=== PATIENT | female | born 1950 | race Caucasian/White ===

== ENCOUNTER 2025-04-24 10:31 | Day surgery (SDC) | payer MEDICARE, OTHER, SELFPAY ==
--- NOTE | 2025-04-16 15:32 | PAT.ANESEVAL ---
Pre-Assessment Diagnosis/Proposed Procedure Planned Operative Procedure(s): UPPER EYELID BLEPHAROPLASTY Anesthesia History Anesthesia History - correctional substance abuse counselor: Anesthesia History - correctional substance abuse counselor Hx Hospitalization No 04/15/25 14:06 Any Problems With Anesthesia No 04/15/25 14:06 Cholinesterase deficiency No 04/15/25 14:06 You/Your Family Experience No 04/15/25 14:06 fever (hyperthermia) with Relationship Recent Exposure to Contagious Disease Does patient have nerve No 04/15/25 14:06 stimulator Patient instructed to have device shut off --Does patient have Pacemaker or ICD? When Was Last Pacemaker Check QUESTION #4 FULL TEXT: You/Your Family Experience fever (hyperthermia) with Anesthesia Last Oral Intake Last Oral intake: Last Oral Intake NPO since Meds taken in AM with sips of water? Meds patient instructed to take am of surgery PONV PONV - correctional substance abuse counselor: PONV - correctional substance abuse counselor Female Yes 04/15/25 14:06 HX of Motion Sickness No 04/15/25 14:06 HX of N/V After Surgery No 04/15/25 14:06 Non-Smoker Yes 04/15/25 14:06 Duration of Surgery greater Yes 04/15/25 14:06 than 60 minutes Number of Risk Factors 3 04/15/25 14:06 PONV Score Moderate Risk 04/15/25 14:06 Height & Weight Height & Weight: Anesthesia: Height & Weight Height 5 ft 2 in 03/08/25 10:40 Respiratory Assessment Respiratory Assessment - correctional substance abuse counselor: Respiratory Tract Infection Hx - correctional substance abuse counselor Hx Respiratory Tract Infection No 04/15/25 14:06 STOP Sleep Apnea STOP Sleep Apnea - correctional substance abuse counselor: STOP Sleep Apnea - correctional substance abuse counselor Hx Hypertension Yes: ON MEDS 04/15/25 14:06 Hx Sleep Apnea No 04/15/25 14:06 CPAP BIPAP Do you snore loudly (louder No 04/15/25 14:06 than talking or can be heard Do you often feel tired/ No 04/15/25 14:06 fatigued/ sleepy during daytime? Has anyone observed you stop No 04/15/25 14:06 breathing during sleep? STOP Results Negative 04/15/25 14:06 QUESTION #5 FULL TEXT : Do you snore loudly (louder than talking or can be heard through closed doors)? 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 Specify any problems Hx of Preganancy in last 3 No 04/15/25 14:06 Months Nurse Filling Out Transfusion JZOLLINGE 04/15/25 14:06 & Questions: Date: 04/15/25 04/15/25 14:06 Time: 14:08 04/15/25 14:06 Patient unable to answer at this time (ie. confused, unrespo /Reproduction History /Reproductive History - correctional substance abuse counselor: /Reproductive Hx- correctional substance abuse counselor Hx Now No 04/15/25 14:06 Gestational Age (in weeks): EDC: Hx Hx Para Hx Section SAB No 04/15/25 14:06 Does the father of the baby or his family experience fever w Father of the baby Malignant Hypertension history comment [facility] Medical History (Updated 04/15/25 @ 14:06 by Anahi Fall) Wears glasses Wears partial dentures Non-smoker History of stress test History of echocardiogram Heart valve problem Vascular disease Thyroid disease Hypertension Cataracts, bilateral Home Medications ?Medication ?Instructions ?Recorded ?Last Taken ?Type esomeprazole magnesium 20 mg 20 mg PO DAILY PRN REFLUX 09/09/14 Unknown History capsule,delayed release (Nexium) fluticasone propionate 50 1 spray DAILY 09/09/14 Unknown History mcg/actuation nasal spray,suspension amlodipine 10 mg tablet 10 mg PO QDAY 03/08/25 Unknown History calcium carbonate (Calcium 600) 600 mg PO QDAY 03/08/25 Unknown History cholecalciferol (vitamin D3) 125 20 mcg PO QDAY 03/08/25 Unknown History mcg (5,000 unit) capsule levothyroxine 100 mcg tablet 100 mcg PO QDAY 03/08/25 Unknown History (Synthroid) vitamin K2 45 mcg capsule 90 mcg PO QDAY 03/08/25 Unknown History cetirizine 10 mg tablet (24Hour 10 mg PO DAILY PRN allergy symptoms 04/15/25 Unknown History Allergy) Allergy/AdvReac Type Severity Reaction Status Date / Time clindamycin Allergy PT UNSURE Verified 04/15/25 14:26 OF REACTION codeine Allergy Rash Verified 04/15/25 13:54 Penicillins (PCN) Allergy Rash Verified 04/15/25 13:54 propoxyphene HCl (From Allergy Rash Verified 04/15/25 13:54 Darvon) Sulfa (Sulfonamide Allergy Rash Verified 04/15/25 13:54 Antibiotics) acetaminophen (From Percocet) AdvReac Nausea/Vom/ Verified 04/15/25 14:26 Diarrhea oxycodone AdvReac Nausea/Vom/ Verified 04/15/25 14:26 Diarrhea Surgical History (Updated 04/15/25 @ 14:06 by Anahi Fall) Hx of colonoscopy History of cholecystectomy Colorectal cancer H/O: hysterectomy Social History (Updated 03/08/25 @ 10:28 by Britni Quan) Smoking Status: Never smoker Audit: Pertinent Findings Pertinent Findings EKG Perinent findings: 08/2023: SR Stress test pertinent findings: 09/2023: (-) stress test, EF 63% Echo (EF%) pertinent findings: 09/2023: EF 60-65%, mild aortic regurg, MVP with mild regurg, RVSP 27 Recommendation Anesthesia Recommendation Anesthesia recommendation: OPTIMIZED for anesthesia
[2025-04-24] VITALS (8 sets, daily range): BP systolic 107–138; BP diastolic 54–70; PULSE 57–75; RESP 16; TEMP 36.4–36.6; O2SAT 94–100; BMI 28.2
[2025-04-24] MEDS: Lactated Ringers 1,000 ML 15 ML IV (10:45)
--- NOTE | 2025-04-24 11:28 | HP.PCM_ITS ---
HPI - General General Date of Service: 04/24/25 HPI Narrative FREDI CHAVEZ, is a 75 F who presents functional bilateral blepharoplasty. Denies changes to medications, changes in her health since her last evaluation with us. Denies fever, chills, URI, dental infection, rash. HPI from 03/08/25: The patient is a 74-year-old female presenting with eyelid excess skin. She reports that her eyelids have become progressively heavier over the past few years, leading to difficulty in vision, particularly when looking upwards. The heaviness of the eyelids has been noticeable since it was first recommended for evaluation a couple of years ago. The patient experiences some difficulty seeing traffic lights without adjusting her neck position, indicating the impact of the eyelid ptosis on her daily activities. 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 The patient has a history of hypothyroidism, for which she has been on medication since the age of 18. No history of thyroid eye disease. No dry eyes. Does not use Botox. Non-smoker ROS: - Ophthalmic: Reports heaviness of eyelids, denies dry eyes - Endocrine: Reports history of hypothyroidism [facility], [facility] Medical History (Updated 04/15/25 @ 14:06 by Anahi Fall) Wears glasses Wears partial dentures Non-smoker History of stress test History of echocardiogram Heart valve problem Vascular disease Thyroid disease Hypertension Cataracts, bilateral Home Medications ?Medication ?Instructions ?Recorded ?Last Taken ?Type esomeprazole magnesium 20 mg 20 mg PO DAILY PRN REFLUX 09/09/14 Unknown History capsule,delayed release (Nexium) fluticasone propionate 50 1 spray DAILY 09/09/14 Unkno wn History mcg/actuation nasal spray,suspension amlodipine 10 mg tablet 10 mg PO QDAY 03/08/2504/24 08:00 History calcium carbonate (Calcium 600) 600 mg PO QDAY 5 Unknown History cholecalciferol (vitamin D3) 125 20 mcg PO QDAY Unknown History mcg (5,000 unit) capsule levothyroxine 100 mcg tablet 100 mcg PO QDAY 03/08/25 04/24/25 05:00 History (Synthroid) vitamin K2 45 mcg capsule 90 mcg PO QDAY 03/08/25 Unkn own History cetirizine 10 mg tablet (24Hour 10 mg PO DAILY PRN all ergy symptoms 04/15/25 Unknown History Allergy) Allergy/AdvReac Type Severity Reaction Status Date / Time clindamycin Allergy PT UNSURE Verified 04/15/25 14:26 OF REACTION codeine Allergy Rash Verified 04/15/25 13:54 Penicillins (PCN) Allergy Rash Verified 04/15/25 13:54 propoxyphene HCl (From Allergy Rash Verified 04/15/25 13:54 Darvon) Sulfa (Sulfonamide Allergy Rash Verified 04/15/25 13:54 Antibiotics) acetaminophen (From Percocet) AdvReac Nausea/Vom/ Verified 04/15/25 14:26 Diarrhea oxycodone AdvReac Nausea/Vom/ Verified 04/15/25 14:26 Diarrhea Surgical History (Updated 04/15/25 @ 14:06 by Anahi Fall) Hx of colonoscopy History of cholecystectomy Colorectal cancer H/O: hysterectomy Social History (Updated 03/08/25 @ 10:28 by Britni Quan) Smoking Status: Never smoker ROS ROS Narrative General: Denies fever, chills HEENT: Denies headaches, vision changes, sore throat Cardio: Denies chest pain, leg edema Pulmonary: Denies shortness of pain, cough, wheezing GI: Denies nausea, vomiting, diarrhea Vital Signs Vital Signs Vital Signs: 04/24/25 11:04 04/24/25 11:04 04/24/25 11:04 Temperature 97.8 F Temperature Source Temporal Pulse Rate 75 Respiratory Rate 16 Respiratory Pattern Normal Blood Pressure 138/70 H Blood Pressure Mean 92 Blood Pressure Source Monitor Blood Pressure Position Semi-Fowlers Blood Pressure Location Left Arm Baseline BP 138/70 Pulse Ox 100 Oxygen Delivery Method Room Air Weight Weight: 154 lb 5.177 oz Body Mass Index (BMI) 28.2 Physical Exam Narrative Afebrile/VSS. Pupils: PERRL EOM: EOM intact bilaterally Forehead: Chronic frontalis use to overcome dermatochalasis/brow ptosis. Significant visual field obstruction from the ptotic brows. Eyebrows: Ptotic and at/below orbital rim bilaterally Eyelids: * MRD 1 was 4 mm, MRD 2 was 5 mm * Good levator function (approximately 12mm) * No lagophthalmos * Snap back test: Did not snap back quickly and pulled approximately 1 cm. Would advise against any lower eyelid blepharoplasty especially without any canthopexy or plasty. * Upper lid dermatochalasis bilaterally, obstructing vertical gaze bilaterally secondary to the skin. The skin is hanging over the upper eyelashes and the lateral portions of lid margin. Assessment & Plan Assessment/Plan (1) Dermatochalasis of both upper eyelids: PLAN: DC same day
--- NOTE | 2025-04-24 11:32 | PCM.PRE.AN2 ---
ASA Classification* ASA Classification ASA Classification: 2 Assessment & Plan Anesthesia* Anesthesia Assessment Anesthesia Assessment: Discussed sedation and/or anesthesia options, risks, benefits, and alternatives with patient/parents/legal guardian/POA. Questions invited. The patient/parents/legal guardian/POA seems to understand and agrees to proceed with anesthesia plan. Reviewed the physical assessment, medical history, allergy history and patient home medications list prior to surgery/procedure/anesthetic and documented any changes. Performed airway and anesthesia risk assessments. Anesthesia Type Anesthesia Type: MAC History Source History Obtained from:: Patient and Chart Anesthesia Focused Assessment* Temperature: 97.8 F Pulse Rate: 75 Blood Pressure: 138/70 Respiratory Rate: 16 Pulse Ox: 100 Oxygen Delivery Method: Room Air Airway Assessment Mouth opens: >3 cm Mallampati Score: II Teeth Condition: Partial (Lower partial is out. Upper permanent bridge is tight.) Neck Range of motion (ROM): Limited ROM (Slight Decrease) Labs Anesthesia Preop lab: CBC CHEMISTRY Creatinine, (0.6-1.0) 1.0 mg/dL 09/14/14, 07:45 COAG Pre-Assessment Diagnosis/Proposed Procedure Planned Operative Procedure(s): UPPER EYELID BLEPHAROPLASTY Anesthesia History Anesthesia History - labor arbitrator hearing office: Anesthesia History - labor arbitrator hearing office Hx Hospitalization No 04/15/25 14:06 Any Problems With Anesthesia No 04/15/25 14:06 Cholinesterase deficiency No 04/15/25 14:06 You/Your Family Experience No 04/15/25 14:06 fever (hyperthermia) with Relationship Recent Exposure to Contagious No 04/24/25 11:04 Disease Does patient have nerve No 04/15/25 14:06 stimulator Patient instructed to have device shut off --Does patient have Pacemaker No 04/24/25 11:04 or ICD? When Was Last Pacemaker Check QUESTION #4 FULL TEXT: You/Your Family Experience fever (hyperthermia) with Anesthesia Last Oral Intake Last Oral intake: Last Oral Intake NPO since 08:00 04/24/25 11:04 Meds taken in AM with sips of Yes 04/24/25 11:04 water? Meds patient instructed to take am of surgery Any additional information?: Yes Meds taken in AM with sips of water?: Yes PONV PONV - labor arbitrator hearing office: PONV - labor arbitrator hearing office Female Yes 04/15/25 14:06 HX of Motion Sickness No 04/15/25 14:06 HX of N/V After Surgery No 04/15/25 14:06 Non-Smoker Yes 04/15/25 14:06 Duration of Surgery greater Yes 04/15/25 14:06 than 60 minutes Number of Risk Factors 3 04/15/25 14:06 PONV Score Moderate Risk 04/15/25 14:06 Height & Weight Height & Weight: Anesthesia: Height & Weight Height 5 ft 2 in 04/24/25 11:04 Weight: 70 kg 04/24/25 11:04 Body Mass Index (BMI) 28.2 04/24/25 11:04 Respiratory Assessment Respiratory Assessment - labor arbitrator hearing office: Respiratory Tract Infection Hx - labor arbitrator hearing office Hx Respiratory Tract Infection No 04/15/25 14:06 STOP Sleep Apnea STOP Sleep Apnea - labor arbitrator hearing office: STOP Sleep Apnea - labor arbitrator hearing office Hx Hypertension Yes: ON MEDS 04/15/25 14:06 Hx Sleep Apnea No 04/15/25 14:06 CPAP BIPAP Do you snore loudly (louder No 04/15/25 14:06 than talking or can be heard Do you often feel tired/ No 04/15/25 14:06 fatigued/ sleepy during daytime? Has anyone observed you stop No 04/15/25 14:06 breathing during sleep? STOP Results Negative 04/15/25 14:06 QUESTION #5 FULL TEXT : Do you snore loudly (louder than talking or can be heard through closed doors)? 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 Specify any problems Hx of Preganancy in last 3 No 04/15/25 14:06 Months Nurse Filling Out Transfusion JAIMIE 04/15/25 14:06 & Questions: Date: 04/15/25 04/15/25 14:06 Time: 14:08 04/15/25 14:06 Patient unable to answer at this time (ie. confused, unrespo /Reproduction History /Reproductive History - labor arbitrator hearing office: /Reproductive Hx- labor arbitrator hearing office Hx Now No 04/15/25 14:06 Gestational Age (in weeks): EDC: Hx Hx Para Hx Section SAB No 04/15/25 14:06 Does the father of the baby or his family experience fever w Father of the baby Malignant Hypertension history comment Active Medications Active Medications: Current Medications Generic Name Dose Route Start Last Admin Trade Name Freq PRN Reason Stop Dose Admin Lactated Ringer's 1,000 mls @ 15 mls/hr 04/24/25 10:45 04/24/25 10:45 IV 15 mls/hr .Q48H JOSH Administration PFSH Medical History Wears glasses Wears partial dentures Non-smoker History of stress test History of echocardiogram Heart valve problem Vascular disease Thyroid disease Hypertension Cataracts, bilateral Home Medications ?Medication ?Instructions ?Recorded ?Last Taken ?Type esomeprazole magnesium 20 mg 20 mg PO DAILY PRN REFLUX 09/09/14 Unknown History capsule,delayed release (Nexium) fluticasone propionate 50 1 spray DAILY 09/09/14 Unknown History mcg/actuation nasal spray,suspension amlodipine 10 mg tablet 10 mg PO QDAY 03/08/25 04/24/25 08:00 History calcium carbonate (Calcium 600) 600 mg PO QDAY 03/08/25 Unknown History cholecalciferol (vitamin D3) 125 20 mcg PO QDAY 03/08/25 Unknown History mcg (5,000 unit) capsule levothyroxine 100 mcg tablet 100 mcg PO QDAY 03/08/25 04/24/25 05:00 History (Synthroid) vitamin K2 45 mcg capsule 90 mcg PO QDAY 03/08/25 Unknown History cetirizine 10 mg tablet (24Hour 10 mg PO DAILY PRN allergy symptoms 04/15/25 Unknown History Allergy) Allergy/AdvReac Type Severity Reaction Status Date / Time clindamycin Allergy PT UNSURE Verified 04/15/25 14:26 OF REACTION codeine Allergy Rash Verified 04/15/25 13:54 Penicillins (PCN) Allergy Rash Verified 04/15/25 13:54 propoxyphene HCl (From Allergy Rash Verified 04/15/25 13:54 Darvon) Sulfa (Sulfonamide Allergy Rash Verified 04/15/25 13:54 Antibiotics) acetaminophen (From Percocet) AdvReac Nausea/Vom/ Verified 04/15/25 14:26 Diarrhea oxycodone AdvReac Nausea/Vom/ Verified 04/15/25 14:26 Diarrhea Surgical History Hx of colonoscopy History of cholecystectomy Colorectal cancer H/O: hysterectomy Social History Smoking Status: Never smoker Review of Systems (Anesthesia) ROS Narrative System reviewed and no additional complaints, except as documented.
[2025-04-24] MEDS: Midazolam 2 MG/2 ML Syringe IV (11:57)
[2025-04-24] MEDS: Lidocaine 1% (5 ml sdv) 5 ML Vial IV (12:00)
[2025-04-24] MEDS: Povidone Iodine 30 ML Opthalmic Sol 1 DRP (12:05)
--- OUTSIDE RECORDS SUMMARY | 2025-04-24 12:11 | XMS RPT_ITS | CCD ---
Author Organization [facility] Care Team Providers Care Metal Can Inspector Name Role Phone OLIVERIO VARMA, DR LOPEZ Primary Care Physician Jessica Duron DO Primary Care Provider OLIVERIO VARMA, DR LOPEZ Primary Care Physician Jessica Duron DO Primary Care Provider OLIVERIO VARMA, DR LOPEZ Primary Care Physician HECTOR NGUYEN, TYRELL Ojeda Attending Unavail able OLIVERIO DO, DR LOPEZ Primary Care Unavailable OLIVERIO DO, DR LOPEZ Attending Unavailable OLIVERIO DO, DR LOPEZ Primary Care Unavailable OLIVERIO DO, DR LOPEZ Primary Care Unavailable DOMINGA NGUYEN, DR GALVAN Attending Un available OLIVERIO DO, DR LOPEZ Primary Care Unavailable DOMINGA NGUYEN, DR GALVAN Attending Un available OLIVERIO DO, DR LOPEZ Primary Care Unavailable OLIVERIO DO, DR LOPEZ Attending Unavailable OLIVERIO DO, DR LOPEZ Primary Care Unavailable OLIVERIO DO, DR LOPEZ Attending Unavailable OLIVERIO DO, DR LOPEZ Attending Unavailable OLIVERIO DO, DR LOPEZ Primary Care Unavailable OLIVERIO DO, DR LOPEZ Primary Care Unavailable HORACIO GOMEZ MD Attending Unavailable HORACIO GOMEZ MD Attending Unavailable OLIVERIO DO, DR LOPEZ Primary Care Unavailable OLIVERIO DO, DR LOPEZ Primary Care Unavailable HORACIO GOMEZ MD Attending Unavailable Oliverio , Jessica Grayson Primary Care Provider JORJE RAYO Attending Unavailable CYRUS POWELL Referring Unavailable JESSICA DURON Primary Care Unavailable Unavailable Primary Care Provider Unavailmelissa Jane DO, Dr. Juan Pablo Gallo Primary Care Physician Buck VARMA, Dr. Juan Pablo Gallo Referring Provider [phone] Charmaine NGUYEN, Dr. Padron Attending Physician [phone] OLIVERIO DO, DR LOPEZ Attending Unavailable OLIVERIO DO, DR LOPEZ Primary Care Unavailable OLIVERIO DO, DR LOPEZ Attending Unavailable OLIVERIO DO, DR LOPEZ Primary Care Unavailable OLIVERIO DO, DR LOPEZ Primary Care Unavailable DOMINGA NGUYEN, DR GALVAN Attending Un available DOMINGA NGUYEN, DR GALVAN Attending Un available OLIVERIO DO, DR LOPEZ Primary Care Unavailable OLIVERIO DO, DR LOPEZ Attending Unavailable OLIVERIO DO, DR LOPEZ Primary Care Unavailable OLIVERIO DO, DR LOPEZ Primary Care Unavailable OLIVERIO DO, DR LOPEZ Attending Unavailable Juan Pablo Jane Referring Unavailable Juan Pablo Jane Primary Care Unavailable Vito Montano Attending Unavailable Charmaine, Vito Attending Unavailable Jessica Duron Primary Care Unavailable Charmaine, Vito Referring Unavailable Allergies Allergy Classification Reported Allergen(s) Allergy Type Date of Onset Reaction(s) Facility (20 sources) Acetaminophen / oxyCODONE; Translations: [acetaminophen-ox ycodone] Drug Allergy 5 Unknown (qualifier value), Vomiting [facility] (20 sources) Codeine; Translations: [codeine] Drug Allergy 5 Unknown (qualifier value), Other: See Comments [facility] (19 sources) Penicillin; Translations: [penicillin] Drug Allergy Weal (disorder), Diarrhea (finding) [facility] (20 sources) Propoxyphene; Translations: [propoxyphene] Drug Allergy 5 Itching (finding) [facility] (20 sources) Pseudoephedrine; Translations: [pseudoephedrine] Drug Allergy 2 Unknown (qualifier value), Unknown [facility] Comment on above: gets really cold (19 sources) Sulfonamides (Antibiotic); Translations: [sulfa drugs] Drug allergy Unknown (qualifier value) [facility] (4 sources) Penicillins; Translations: [PENICILLINS] Propensity to adverse reactions 8 [facility] Work Phone: (12 sources) Propoxyphene; Translations: [PROPOXYPHENE HCL] Drug Allergy 8 Rash [facility] Work Phone: (13 sources) Sulfonamides (Antibiotic); Translations: [SULFA (SULFONAMIDE ANTIBIOTICS)] Propensity to adverse reactions 8 [facility] Work Phone: (19 sources) oxyCODONE; Translations: [oxycodone] Drug Allergy 5 Crawling (observable entity) [facility] (4 sources) Penicillins Propensity to adverse reactions 8 [facility] Work Phone: (15 sources) Clindamycin; Translations: [clindamycin] Drug Allergy 5 Diarrhea (finding), Hives, Itching [facility] (3 sources) Penicillins Propensity to adverse reactions 8 [facility] (3 sources) Acetaminophen / oxyCODONE; Translations: [OXYCODONE-ACETAM INOPHEN] Drug Allergy 5 [facility] (2 sources) Penicillins Propensity to adverse reactions 5 [facility] (1 source) Penicillins Allergy to substance 5 [facility] (1 source) Sulfonamides (Antibiotic) Allergy to substance 5 [facility] (1 source) Acetaminophen Drug Allergy 5 [facility] (1 source) Clindamycin Drug Allergy 5 [facility] (1 source) Codeine Drug Allergy 5 [facility] (1 source) oxyCODONE Drug Allergy 5 [facility] (1 source) Penicillins Drug allergy (disorder) 5 [facility] (1 source) Propoxyphene Drug Allergy 5 [facility] (1 source) Sulfonamides (Antibiotic) Drug allergy (disorder) 5 [facility] Medications Current Medications Medication Drug Class(es) Dates Sig (Normalized) Sig (Original) acetaminophen 500 mg oral tablet (20 sources) Start: 12-03-2021 take 1 mg by mouth every six hours Tylenol Extra Strength 500 mg oral tablet mg = tab(s), Oral, q6hr, 0 Refill(s) Start Date: 12/03/21 Status: Ordered Medication Dispense Status: Completed Total Allowed Fills: 1 Fills Dispensed: 0 Comment on above: Take by mouth. albuterol MDI (90 mcg/inh) CFC free inhalation aerosol (1 source) Start: 06-02-2023 take 1 puff(s) by inhalation every four hours as needed for wheezing albuterol MDI (90 mcg/inh) CFC free inhalation aerosol 1 puff(s), Inhalation, q4h, PRN as needed for wheezing, # 18 gram(s), 0 Refill(s), Pharmacy: [id number], Acute bronchitis, 157, cm, 06/02/23 8:14:00 EST, Height, kg, 06/02/23 8:14:00 EST, Dosing Weight Start Date: 06/02/23 Status: Ordered Monica Allergy (4 sources) Start: 03-26-2022 take 1 mg by mouth twice daily Monica Allergy mg =, Oral, BID, 0 Refill(s) Start Date: 03/26/22 Status: Ordered amLODIPine 10 mg oral tablet (13 sources) Dihydropyridine Calcium Channel Dawson Start: 02-05-2025 take 1 tablet by mouth once daily Amlodipine 10 mg tablet Active 10 mg PO daily March 08, 2025 12:00am Complies with drug therapy Start: 08-03-2024 amLODIPine 10 mg oral tablet Dose : 10 mg = 1 tab(s), Oral, qDay, # 90 tab(s), 1 Refill(s), Pharmacy: [facility]/pharmacy #[id number], 157.5, cm, 07/27/24 10:37:00 EST, Height, kg, 07/27/24 10:37:00 EST, Dosing Weight Start Date: 08/03/24 Status: Ordered Quantity: 90.0 Unit: tab(s) Repeat number: 2 Start: 09-13-2023 amLODIPine 10 mg oral tablet Dose : 10 mg = 1 tab(s), Oral, qDay, # 90 tab(s), 1 Refill(s), [id number] 157.5, cm, 03/01/24 7:49:00 EDT, Height, kg, 03/01/24 7:49:00 EDT, Dosing Weight Start Date: 03/01/24 Status: Ordered Quantity: 90.0 Unit: tab(s) Repeat number: 2 Start: 09-01-2023 amLODIPine 5 m g oral tablet Dose : 5 mg = 1 tab(s), Oral, qDay, # 30 tab(s), 0 Refill(s), [id number], 157, cm, 09/01/23 7:30:00 EDT, Height, kg, 09/01/23 7:30:00 EDT, Dosing Weight Start Date: 09/01/23 Status: Ordered biotin 5 mg oral capsule (17 sources) Start: 12-03-2021 biotin 5000 mc g oral caps 0 Refill(s) Start Date: 12/03/21 Status: Ordered Medication Dispense Status: Completed Total Allowed Fills: 1 Fills Dispensed: 0 Biotin-Silicon Trou-L-Uunqnp ne 5,000 mcg-100 mg- 50 mg tab (10 sources) Biotin-Silicon D trs-S-Ouuesewr 5,000 mcg-100 mg- 50 mg tab Take by mouth once daily. biotin 5000 mcg daily Active Biotin-Silicon D afp-R-Aougsgxx 5,000 mcg-100 mg- 50 mg tab Take by mouth once daily. biotin 5000 mcg daily 0 Active Comment on above: Take by mouth once d aily. biotin 5000 mcg daily busPIRone hydrochloride 5 mg oral tablet (4 sources) Start: 11-24-2023 busPIRone 5 mg oral tablet Dose : 5 mg = 1 tab(s), Oral, TID, # 90 tab(s), 2 Refill(s), Pharmacy: [facility], 158.2, cm, 10/25/23 13:14:00 EDT, Height, kg, 10/25/23 13:14:00 EDT, Dosing Weight Start Date: 11/24/23 Status: Ordered calcium carbonate 1500 mg oral tablet (11 sources) Start: 03-08-2025 take 1 tablet by mouth once daily Calcium Carbonate (Calcium 600) 600 mg calcium (1,500 mg) tablet Active 600 mg PO daily March 08, 2025 12:00am Complies with drug therapy Start: 03-01-2024 calcium (as ca rbonate) 600 mg oral tablet Dose : 600 mg = 1 tab(s), Oral, qDay, PRN for control of stomach acid, # 60 tab(s), 0 Refill(s) Start Date: 03/01/24 Status: Ordered Medication Dispense Status: Completed Quantity: 60.0 Unit: tab(s) Total Allowed Fills: 1 Fills Dispensed: 0 Start: 12-03-2021 take 1 mg by mouth once daily calcium carbonate 600 mg oral tablet, chewable mg = tab(s), Chewed, qDay, 0 Refill(s) Start Date: 12/03/21 Status: Ordered cholecalciferol 0.125 mg oral capsule (11 sources) Vitamin D Start: 03-08-2025 take 1 capsule by mouth once daily Cholecalciferol (Vitamin D3) 125 mcg (5,000 unit) capsule Active 125 ug PO daily March 08, 2025 12:00am Complies with drug therapy take 1 tablet by mouth once amando y cholecalciferol (VITAMIN D3) 1,000 unit tab tablet Take 1,000 Units by mouth once daily. Active Comment on above: Take 1,000 Units by mouth once daily. cholestyramine low-calorie (CHOLESTYRAMINE LIGHT) 4 gram packet (3 sources) Start: 06-14-19 take 1 dose by mouth twice daily cholestyramine low-calorie (CHOLESTYRAMINE LIGHT) 4 gram packet Take 1 Packet by mouth twice daily. 60 Packet 5 06/14/2022 Active sugar-free cholestyramine resin 4000 mg powder for oral suspension (4 sources) Bile Acid Sequestrant Start: 06-14-19 End: 07-14-19 take 1 dose by mouth twice daily cholestyramine low-calorie (CHOLESTYRAMINE LIGHT) 4 gram packet Take 1 Packet by mouth twice daily. 60 Packet 5 06/14/2022 Active Comment on above: Take 1 Packet by [facility] twice daily. Chondroitin Sulfates / Glucosamine (3 sources) Start: 07-27-19 Chondroitin-Glucosamin e Oral, qDay, 0 Refill(s) Start Date: 07/27/24 Status: Ordered Repeat number: 1 cloNIDine hydrochloride 0.1 mg oral tablet (5 sources) Central alpha-2 Adrenergic Agonist Start: 09-10-19 End: 06-14-19 23 take 1 tablet by mouth once daily Comment on above: Take 0.1 mg by mouth daily at bedtime. CYANOCOBALAMIN, VITAMIN B-12, (VITAMIN B-12 ORAL) (10 sources) take 2500 ug by mouth once daily CYANOCOBALAMIN, VITAMIN B-12, (VITAMIN B-12 ORAL) Take 2,500 mcg by mouth once daily. Active take 2500 ug by mouth once daily CYANOCOBALAMIN, VITAMIN B-12, (VITAMIN B-12 ORAL) Take 2,500 mcg by mouth once daily. 0 Active Comment on above: Take 2,500 mcg by [facility] once daily. doxycycline hyclate 100 mg oral capsule (5 sources) Tetracycline-class Drug Start: 01-27-2025 End: 02-01-2025 doxycycline (Vibramycin) 100 MG capsule Take 1 capsule (100 mg) by mouth 2 times daily for 5 days. Take with at least 8 ounces (large glass) of water, do not lie down for 30 minutes after 10 capsule 01/27/2025 02/01/2025 Active Start: 12-03-2021 End: 12-13-2021 doxycycline hyclate 100 mg o ral tablet Dose : 100 mg = 1 tab(s), Oral, BID, X 10 day(s), # 20 tab(s), 0 Refill(s), 12/13/21 11:24:00 EDT, Pharmacy: [id number], 157, cm, 12/03/21 10:58:00 EDT, Height, 73.2 Start Date: 12/03/21 Stop Date: 12/13/21 Status: Ordered esomeprazole 20 mg delayed release oral capsule (5 sources) Proton Pump Inhibitor Start: 09-09-2014 take 1 capsule by mouth once daily End: 06-14-2022 ESOMEPRAZOLE MAGNESIUM (NEXI UM ORAL) Take 1 capsule by mouth as needed. otc 0 06/14/2022 Discontinued ESOMEPRAZOLE MAG NESIUM (NEXIUM ORAL) Take 1 capsule by mouth as needed. otc 0 Active Comment on above: Take 1 capsule by mo [facility] as needed. otc famotidine 20 mg oral tablet (12 sources) Histamine-2 Receptor Antagonist Start: 12-03-2021 famotidine (PEPCID) 20 mg tablet Take by mouth. 12/03/2021 Active Comment on above: Take by mouth. FLAXSEED OIL (OMEGA 3 ORAL) (10 sources) take 1000 mg by mouth once daily FLAXSEED OIL (OMEGA 3 ORAL) Take 1,000 mg by mouth once daily. Active take 1000 mg by mouth once daily FLAXSEED OIL (OMEGA 3 ORAL) Take 1,000 mg by mouth once daily. 0 Active Comment on above: Take 1,000 mg by [facility] once daily. fluticasone propionate 0.05 mg/actuat metered dose nasal spray (1 source) Corticosteroid Start: 09-09-2014 levothyroxine sodium 0.1 mg oral tablet (20 sources) l-Thyroxine Start: 02-05-2025 levothyroxine 100 mcg (0.1 mg) oral tablet Dose : 100 mcg = 1 tab(s), Oral, qDay, # 90 tab(s), 1 Refill(s), Pharmacy: [facility], 157.5, cm, 09/07/24 8:14:00 EDT, Height, kg, 09/07/24 8:14:00 EDT, Dosing Weight Start Date: 02/05/25 Status: Ordered Medication Dispense Status: Completed Quantity: 90.0 Unit: tab(s) Total Allowed Fills: 2 Fills Dispensed: 0 Start: 08-03-2024 levothyroxine 100 mcg (0.1 mg) oral tablet Dose : 100 mcg = 1 tab(s), Oral, qDay, # 90 tab(s), 1 Refill(s), Pharmacy: [facility], 157.5, cm, 07/27/24 10:37:00 EST, Height, kg, 07/27/24 10:37:00 EST, Dosing Weight Start Date: 08/03/24 Status: Ordered Quantity: 90.0 Unit: tab(s) Repeat number: 2 Start: 09-01-2023 levothyroxine 100 mcg (0.1 mg) oral tablet Dose : 100 mcg = 1 tab(s), Oral, qDay, # 90 tab(s), 1 Refill(s), Pharmacy: [facility], 157.5, cm, 03/01/24 7:49:00 EDT, Height, kg, 03/01/24 7:49:00 EDT, Dosing Weight Start Date: 03/01/24 Status: Ordered Quantity: 90.0 Unit: tab(s) Repeat number: 2 Start: 03-25-2023 levothyroxine 100 mcg (0.1 mg) oral tablet Dose : 100 mcg = 1 tab(s), Oral, qDay, # 90 tab(s), 1 Refill(s), Pharmacy: [facility]), 157, cm, 03/25/23 8:21:00 EDT, Height, kg, 03/25/23 8:21:00 EDT, Dosing Weight Start Date: 03/25/23 Status: Ordered Start: 09-24-2022 levothyroxine 100 mcg (0.1 mg) oral tablet Dose : 100 mcg = 1 tab(s), Oral, qDay, # 90 tab(s), 1 Refill(s), Pharmacy: [facility]), 157, cm, 09/24/22 7:27:00 EDT, Height, kg, 09/24/22 7:27:00 EDT, Dosing Weight Start Date: 09/24/22 Status: Ordered Start: 03-26-2022 levothyroxine 100 mcg (0.1 mg) oral tablet Dose : 100 mcg = 1 tab(s), Oral, qDay, # 90 tab(s), 1 Refill(s), Pharmacy: [facility] ([place]), 157, cm, 12/03/21 10:58:00 EDT, Height, kg, 03/26/22 7:44:00 EDT, Dosing Weight Start Date: 03/26/22 Status: Ordered Start: 09-18-2021 levothyroxine 100 mcg (0.1 mg) oral tablet Dose : 100 mcg = 1 tab(s), Oral, qDay, # 90 tab(s), 1 Refill(s), Pharmacy: [facility]), 158, cm, 03/26/21 8:08:00 EDT, Height, kg, 03/26/21 8:08:00 EDT, Dosing Weight Start Date: 09/18/21 Status: Ordered Start: 03-26-2021 levothyroxine 100 mcg (0.1 mg) oral tablet Dose : 100 mcg = 1 tab(s), Oral, qDay, # 90 tab(s), 1 Refill(s), Pharmacy: [facility]), 158, cm, 03/26/21 8:08:00 EDT, Height, kg, 03/26/21 8:08:00 EDT, Dosing Weight Start Date: 03/26/21 Status: Ordered Start: 04-12-2008 End: 06-14-2022 take 1 tablet by mouth once daily Levothyroxine (Synthroid) 100 mcg tablet Active 100 ug PO daily March 08, 2025 12:00am Complies with drug therapy Comment on above: Take one(1) tablet d aily BY MOUTH. Take 100 mcg by mout h once daily. loratadine 10 mg oral capsule (8 sources) Start: 03-01-2024 loratadine 10 mg oral capsule Dose : 10 mg = 1 cap(s), Oral, qDay, # 24 cap(s), 0 Refill(s) Start Date: 03/01/24 Status: Ordered Medication Dispense Status: Completed Quantity: 24.0 Unit: cap(s) Total Allowed Fills: 1 Fills Dispensed: 0 Start: 09-01-2023 loratadine 10 mg oral capsule Dose : 10 mg = 1 cap(s), Oral, qDay, # 10 cap(s), 0 Refill(s) Start Date: 09/01/23 Status: Ordered Start: 12-03-2021 loratadine Dos e : 10 mg =, qDay, 0 Refill(s) Start Date: 12/03/21 Status: Ordered meclizine hydrochloride 25 mg oral tablet (7 sources) Antiemetic Start: 07-27-2024 meclizine 25 m g oral tablet Dose : 25 mg = 1 tab(s), Oral, TID, PRN as needed for dizziness, # 30 tab(s), 0 Refill(s), [id number] 157.5, cm, 07/27/24 10:37:00 EST, Height, kg, 07/27/24 10:37:00 EST, Dosing Weight Start Date: 07/27/24 Status: Ordered Medication Dispense Status: Completed Quantity: 30.0 Unit: tab(s) Total Allowed Fills: 1 Fills Dispensed: 0 Start: 09-27-2019 meclizine 25 m g oral tablet Dose : 25 mg = 1 tab(s), Oral, TID, PRN for dizziness, # 30 tab(s), 0 Refill(s), Pharmacy: [id number], 157.5, cm, 09/27/19 10:14:00 EDT, Height, kg, 09/27/19 10:14:00 EDT, Dosing Weight Start Date: 09/27/19 Status: Ordered Misc Medication (7 sources) Start: 09-27-2019 Misc Medicatio n 0 Refill(s), 69.7 Start Date: 09/27/19 Status: Ordered [place]-3 1000 mg oral capsule (11 sources) Start: 03-08-2019 take 1 capsule by mouth twice daily [place]-3 1000 mg oral capsule mg = cap(s), Oral, BID, 0 Refill(s) Start Date: 03/08/19 Status: Ordered [place]-3 Fatty Acids-Fish Oil ([place] 3 Fish Oil Softgel) 1 EACH capsule,delayed release(DR/EC) (1 source) Start: 09-09-2014 take 1 capsule by mouth once daily Yochz-2-BYC-EPA-Fish Oil 1,000 mg (120 mg-180 mg) cap (7 sources) Start: 03-08-2019 take 1 capsule by mouth once daily Zfvjv-5-QGP-EPA-Fish Oil 1,000 mg (120 mg-180 mg) cap Take 1,000 mg by mouth once daily. 03/08/2019 Active Start: 03-08-2019 take 1 capsule by [facility] once daily Zyxqa-4-UUS-EPA-Fish Oil 1,000 mg (120 mg-180 mg) cap Take 1,000 mg by mouth once daily. 0 03/08/2019 Active Comment on above: Take 1,000 mg by uma once daily. omeprazole 20 mg delayed release oral capsule (7 sources) Proton Pump Inhibitor Start: 9 omeprazole 20 mg oral delayed release capsule Dose : 20 mg = 1 cap(s), Oral, # 30 cap(s), 0 Refill(s) Start Date: 03/08/19 Status: Ordered polyethylene glycol 3350 530717 mg / potassium chloride 2970 mg / sodium bicarbonate 6740 mg / sodium chloride 5860 mg / sodium sulfate 00437 mg powder for oral solution (7 sources) Osmotic Laxative Start: take 4000 mL by mouth once GAVILYTE-G 236-22.74-6.74 -5.86 gram suspension TAKE 4000 ML BY MOUTH ONE TIME ONLY FOR 1 DOSE. REFER TO PRINTED PREP INSTRUCTIONS FROM PROVIDER 08/08/2024 Active Start: 08-08-2024 End: 08-08-2024 peg 3350-Electrolytes (GOLYT JUAN R) 236-22.74-6.74 -5.86 gram suspension Take 4,000 mL by mouth one time only for 1 dose. Refer to printed prep instructions from your provider. 4000 mL 08/08/2024 08/08/2024 Active Start: 06-19-2021 End: 06-14-2022 peg 3350-Electrolytes (GOLYT JUAN R) 236-22.74-6.74 -5.86 gram suspension Indications: History of rectal cancer Refer to printed prep instructions from your provider. 4000 mL 0 06/19/2021 06/14/2022 Discontinued Comment on above: Refer to printed pre p instructions from your provider. predniSONE 10 mg oral tablet (1 source) Start: 07-27-19 take 4 tablets by mouth once daily, then take 3 tablets by mouth once daily, then take 2 tablets by mouth once daily, then take 1 tablet by mouth once daily prednisone 10mg tab (TAPER) See Instructions, Take 4 tabs daily daily x 3 days, then 3 tabs p.o. daily x 3 days, then 2 tabs p.o. daily x 3 days, then 1 tab p.o. daily x 3 days, # 30 tab(s), 0 Refill(s), Pharmacy: [facility]/pharmacy #[id number], 157.5, cm, 07/27/24 10:37:00 EST, Height, kg, 07/27/24 10:37:00 EST, Dosing Weight Start Date: 07/27/24 Status: Ordered Quantity: 30.0 Unit: tab(s) Repeat number: 1 triamcinolone acetonide 1 mg/ml topical cream (16 sources) Corticosteroid Start: 09-25-19 23 triamcinolone 0.1% topical cream 0 Refill(s), 73.3 Start Date: 09/24/22 Status: Ordered Medication Dispense Status: Completed Total Allowed Fills: 1 Fills Dispensed: 0 Start: 03-26-2022 End: 04-09-2022 triamcinolone 0.1% topical o intment Apply 1 alaina, Topical, BID, X 14 day(s), # 15 gram(s), 0 Refill(s), Pharmacy: [id number], Ointment, 157, cm, 12/03/21 10:58:00 EDT, Height, 73.3 Start Date: 03/26/22 Stop Date: 04/09/22 Status: Ordered vitamin B12 (20 sources) Vitamin B12 Start: 03-08-2019 Vitamin B12 0 Refill(s) Start Date: 03/08/19 Status: Ordered Medication Dispense Status: Completed Total Allowed Fills: 1 Fills Dispensed: 0 Start: 03-08-2019 Vitamin B12 0 Refill(s) Start Date: 03/08/19 Status: Ordered Repeat number: 1 Start: 03-08-2019 Vitamin B12 0 Refill(s) Start Date: 03/08/19 Status: Ordered Start: 09-09-2014 take 1 tablet under the tongue once daily Cyanocobalamin (Vitamin B-12) 1,000 MCG tablet, sublingual Active 1000 ug SL DAILY September 09, 2014 12:00am Complies with drug therapy Vitamin D3 1000 intl units oral capsule (19 sources) Start: 03-08-2019 Vitamin D3 100 0 intl units oral capsule Dose : 1,000 International_Unit = 1 cap(s), Oral, qDay, # 100 cap(s), 0 Refill(s) Start Date: 03/08/19 Status: Ordered Medication Dispense Status: Completed Quantity: 100.0 Unit: cap(s) Total Allowed Fills: 1 Fills Dispensed: 0 Start: 03-08-2019 Vitamin D3 100 0 intl units oral capsule Dose : 1,000 International_Unit = 1 cap(s), Oral, qDay, # 100 cap(s), 0 Refill(s) Start Date: 03/08/19 Status: Ordered Quantity: 100.0 Unit: cap(s) Repeat number: 1 Start: 03-08-2019 Vitamin D3 100 0 intl units oral capsule Dose : 1,000 International_Unit = 1 cap(s), Oral, qDay, # 100 cap(s), 0 Refill(s) Start Date: 03/08/19 Status: Ordered vitamin K2 (5 sources) Start: 03-01-2024 take 1 ug by mouth o nce daily Vitamin K2 mcg, Oral, qDay, 0 Refill(s) Start Date: 03/01/24 Status: Ordered Medication Dispense Status: Completed Total Allowed Fills: 1 Fills Dispensed: 0 Start: 03-01-2024 take 1 ug by mouth once daily Vitamin K2 mcg, Oral, qDay, 0 Refill(s) Start Date: 03/01/24 Status: Ordered Repeat number: 1 Start: 03-01-2024 take 1 ug by mouth once daily Vitamin K2 mcg, Oral, qDay, 0 Refill(s) Start Date: 03/01/24 Status: Ordered Vitamin K2 45 mcg capsule (1 source) Start: 03-08-2025 Vitamin K2 45 mcg capsule Active 45 ug PO daily March 08, 2025 12:00am Complies with drug therapy Completed/Discontinued Medications Medication Drug Class(es) Dates Sig (Normalized) Sig (Original) bisacodyl 5 mg delayed release oral tablet (4 sources) Stimulant Laxative Start: 06-19-2021 End: 06-14-2022 Bisacodyl (DULCOLAX) 5 mg tab Indications: History of rectal cancer Use as directed for Miralax / Gatorade Bowel Prep Kit 4 tablet 0 06/19/2021 06/14/2022 Discontinued Comment on above: Use as directed for Miralax / Gatorade Bowel Prep Kit CA CARBONATE/VITAMIN D3/VIT K (SOFT CHEWS CALCIUM ORAL) (4 sources) End: 06-14-2022 take 1 tablet by mouth once daily CA CARBONATE/VITAMIN D3/VIT K (SOFT CHEWS CALCIUM ORAL) Take 1 tablet by mouth once daily. 0 06/14/2022 Discontinued take 1 tablet by mouth once amando y CA CARBONATE/VITAMIN D3/VIT K (SOFT CHEWS CALCIUM ORAL) Take 1 tablet by mouth once daily. 0 Active Comment on above: Take 1 tablet by uma th once daily. COMPOUNDED PRESCRIPTION (4 sources) Start: 04-12-2008 End: 06-14-2022 COMPOUNDED PRESCRIPTION fluticasone propionate cream for psoriasis 0 04/12/2008 06/14/2022 Discontinued Start: 04-12-2008 COMPOUNDED PRE SCRIPTION fluticasone propionate cream for psoriasis 0 04/12/2008 Active Comment on above: fluticasone propiona te cream for psoriasis Gatorade Sports Drink (4 sources) Start: 06-19-2021 End: 06-14-2022 Gatorade Sports Drink Indications: History of rectal cancer Use as directed for Miralax / Gatorade Bowel Prep Kit 0 06/19/2021 06/14/2022 Discontinued Start: 06-19-2021 Gatorade Sport s Drink Indications: History of rectal cancer Use as directed for Miralax / Gatorade Bowel Prep Kit 0 06/19/2021 Active Comment on above: Use as directed for Miralax / Gatorade Bowel Prep Kit iopamidol (Isovue-370) 76 % injection 75 mL (2 sources) Start: 01-28-20 25 End: 01-28-20 25 take 75 mL intravenously once as needed 75 mL, IntraVENous, IMG once PRN, contrast, Starting on 01/27/25 at 1554, For 1 dose Vlfju-0-GGU-EPA-Fish Oil (FISH OIL) 1,000 mg (120 mg-180 mg) cap (3 sources) Start: 03-08-20 19 take 1 capsule by mouth once daily Bcbol-6-RLB-EPA-Fish Oil (FISH OIL) 1,000 mg (120 mg-180 mg) cap Take 1,000 mg by mouth once daily. 0 03/08/2019 Active Comment on above: Take 1,000 mg by uma th once daily. polyethylene glycol 3350 54714 mg powder for oral solution (4 sources) Osmotic Laxative Start: 06-19-19 22 End: 06-14-19 23 polyethylene glycol 3350 (MIRALAX, GLYCOLAX) 17 gram/dose powder Indications: History of rectal cancer Use as directed for Miralax / Gatorade Bowel Prep Kit 238 g 0 06/19/2021 06/14/2022 Discontinued Comment on above: Use as directed for Miralax / Gatorade Bowel Prep Kit skin protective paste pste (4 sources) Start: 11-08-19 End: 06-14-19 skin protective paste pste Apply 1 application to affected area twice daily. 250 g 0 11/07/2014 06/14/2022 Discontinued Start: 11-07-2014 skin protectiv e paste pste Apply 1 application to affected area twice daily. 250 g 0 11/07/2014 Active Comment on above: Apply 1 application to affected area twice daily. Problems Active Problems Problem Classification Problem Date Documented Da te Episodic/Chronic Abdominal pain (1 source) Indigestion; Translations: [Epigastric pain] Episodic Anxiety disorders (20 sources) Anxiety; Translations: [Generalized anxiety disorder] 10-25-2023 Chronic Calculus of urinary tract (8 sources) Kidney stone 02-15-2024 Episodic Cancer of rectum and anus (11 sources) Malignant tumor of rectum; Translations: [Malignant neoplasm of rectum] Onset: 09-23-2014 09-23-2014 Chronic Cancer of rectum and anus (20 sources) History of malignant neoplasm of rectum; Translations: [History of malignant neoplasm of digestive organ] Onset: 01-06-2015 05-16-2020 Episodic Cataract (3 sources) Bilateral cataracts; Translations: [Unspecified cataract] Onset: 03-11-2025 03-08-2025 Chronic Chronic kidney disease (13 sources) Chronic kidney disease stage 3 03-25-2023 Chronic Disorders of lipid metabolism (20 sources) Hyperlipidemia; Translations: [Hyperlipidemia, unspecified] 11-15-2019 Chronic Essential hypertension (14 sources) Essential hypertension; Translations: [Essential (primary) hypertension] Onset: 08-30-2023 Chronic Gastrointestinal hemorrhage (4 sources) Rectal hemorrhage; Translations: [Hemorrhage of anus and rectum] 01-27-2025 Episodic Heart valve disorders (10 sources) Mitral valve regurgitation 09-30-2023 Chronic Comment on above: mild 2023 Hypertension with complications and secondary hypertension (16 sources) Labile hypertension due to being in a clinical environment 03-26-2022 Chronic Mood disorders (10 sources) Depressive disorder 10-11-2023 Chronic Mycoses (1 source) Candidiasis of mouth 02-15-2025 Episodic Osteoarthritis (3 sources) Osteoarthritis of right hip joint 09-07-2024 Chronic Other and unspecified benign neoplasm (4 sources) Benign neoplasm of colon; Translations: [Benign neoplasm of colon, unspecified] 08-08-2024 Episodic Other and unspecified benign neoplasm (1 source) Benign neoplasm of colon, unspecified; Translations: [Benign neoplasm of colon, unspecified part of colon] Onset: 10-12-2024 Episodic Other bone disease and musculoskeletal deformities (19 sources) Osteopenia 11-29-2019 Episodic Other bone disease and musculoskeletal deformities (1 source) Disorder of bone; Translations: [Other specified disorders of bone density and structure, unspecified site] Episodic Other circulatory disease (1 source) Elevated blood pressure 12-03-2021 Episodic Other circulatory disease (1 source) Elevated blood-pressure reading without diagnosis of hypertension; Translations: [Elevated blood-pressure reading, without diagnosis of hypertension] Episodic Other circulatory disease (2 sources) Vascular disorder; Translations: [Unspecified disorder of circulatory system] 03-08-2025 Episodic Other circulatory disease (1 source) Unspecified disorder of circulatory system; Translations: [Unspecified disorder of circulatory system] Onset: 03-11-2025 Episodic Other connective tissue disease (19 sources) Pain in thumb 09-23-2020 Episodic Other connective tissue disease (19 sources) Plantar fasciitis 03-01-2019 Episodic Other diseases of kidney and ureters (8 sources) Bilateral hydronephrosis 02-15-2024 Episodic Other inflammatory condition of skin (19 sources) Psoriasis 11-15-2019 Chronic Other nutritional; endocrine; and metabolic disorders (1 source) Cholesterol level - finding; Translations: [Disorder of lipoprotein metabolism, unspecified] Chronic Other upper respiratory disease (10 sources) Seasonal allergy 10-10-2023 Chronic Other upper respiratory infections (12 sources) Acute maxillary sinusitis; Translations: [Sore throat symptom] 12-03-2021 Episodic Reshma-; endo-; and myocarditis; cardiomyopathy (except that caused by tuberculosis or sexually transmitted disease) (3 sources) Heart valve disorder; Translations: [Endocarditis, valve unspecified] Onset: 03-11-2025 03-08-2025 Chronic Poisoning by nonmedicinal substances (2 sources) Wasp sting; Translations: [Toxic effect of venom of wasps, accidental (unintentional), initial encounter] 01-27-2025 Episodic Residual codes; unclassified (19 sources) Flushing 11-15-2019 Episodic Thyroid disorders (20 sources) Hypothyroidism; Translations: [Hypothyroidism, unspecified] 11-15-2019 Chronic Thyroid disorders (3 sources) Disorder of thyroid gland; Translations: [Disorder of thyroid, unspecified] Onset: 03-11-2025 03-08-2025 Episodic Varicose veins of lower extremity (13 sources) Varicose veins of lower extremity 03-25-2023 Episodic Past or Other Problems Problem Classification Problem Date Documented Da te Episodic/Chronic Conditions associated with dizziness or vertigo (2 sources) Benign paroxysmal positional vertigo; Translations: [Benign paroxysmal vertigo, left ear] Onset: 08-01-2024 Episodic Results Test Name Value Interpretation Reference Range Facility MR/PATJOSEPHalexandrea 04-16-2025 MR/PAT.CARA [facility] Medical Records Department [address] [place] [address] PAT - Anesthesia 04/16/25 1532 MR#: [id number] Acct: [id number] Name: FREDI KAPOOR Rep #: [id number] : 1950 74 From: Owen Holloway MD PCP: Dr. 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 When Was Last Pacemaker Check QUESTION #4 FULL TEXT: You/Your Family Experience fever (hyperthermia) with Anesthesia Last Oral Intake Last Oral intake: Last Oral Intake NPO since Meds taken in AM with sips of water? Meds patient instructed to take am of surgery PONV PONV - upholstery parts sorter: PONV - upholstery parts sorter Female Yes 04/15/25 14:06 HX of Motion Sickness No 04/15/25 14:06 HX of N/V After Surgery No 04/15/25 14:06 Non-Smoker Yes 04/15/25 14:06 Duration of Surgery greater Yes 04/15/25 14:06 than 60 minutes Number of Risk Factors 3 04/15/25 14:06 PONV Score Moderate Risk 04/15/25 14:06 Height Weight Height Weight: Anesthesia: Height Weight Height 5 ft 2 in 03/08/25 10:40 Respiratory Assessment Respiratory Assessment - upholstery parts sorter: Respiratory Tract Infection Hx - upholstery parts sorter Hx Respiratory Tract Infection No 04/15/25 14:06 STOP Sleep Apnea STOP Sleep Apnea - upholstery parts sorter: STOP Sleep Apnea - upholstery parts sorter Hx Hypertension Yes: ON MEDS 04/15/25 14:06 Hx Sleep Apnea No 04/15/25 14:06 CPAP BIPAP Do you snore loudly (louder No 04/15/25 14:06 than talking or can be heard Do you often feel tired/ No 04/15/25 14:06 fatigued/ sleepy during daytime? Has anyone observed you stop No 04/15/25 14:06 breathing during sleep? STOP Results Negative 04/15/25 14:06 QUESTION #5 FULL TEXT : Do you snore loudly (louder than talking or can be heard through closed doors)? 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 Specify any problems Hx of Preganancy in last 3 No 04/15/25 14:06 Months Nurse Filling Out Transfusion JZOLLINGE 04/15/25 14:06 Questions: Date: 04/15/25 04/15/25 14:06 Time: 14:08 04/15/25 14:06 Patient unable to answer at this time (ie. confused, unrespo /Reproduction History /Reproductive History - upholstery parts sorter: /Reproductive Hx- upholstery parts sorter Hx Now No 04/15/25 14:06 Gestational Age (in weeks): EDC: Hx Hx Para Hx Section SAB No 04/15/25 14:06 Does the father of the baby or his family experience fever w Father of the baby Malignant Hypertension history comment [facility] Medical History (Updated 04/15/25 @ 14:06 by Anahi Fall) Wears glasses Wears partial dentures Non-smoker History of stress test History of echocardiogram Heart valve problem Vascular disease Thyroid disease Hypertension Cataracts, bilateral Home Medications ???Medication ???Instructions ???Recorded ???Last Taken ???Type esomeprazole magnesium 20 mg 20 mg PO DAILY PRN REFLUX 09/09/14 Unknown History capsule,delayed release (Nexium) fluticasone propionate 50 1 spray DAILY 09/09/14 Unknown His tory mcg/actuation nasal spray,suspension amlodipine 10 mg tablet 10 mg PO QDAY 03/08/25 Unknown His tory calcium carbonate (Calcium 600) 600 mg PO QDAY 03/08/25 Unknown Hi story cholecalciferol (vitamin D3) 125 20 mcg PO QDAY 03/08/25 Unknown Hi story mcg (5,000 unit) capsul (more content not included)... Normal [facility] .Auto Diffon 03-21-2025 Basophil, Absolute 0.0 10 3/mcL Normal 0.0-0.3 [facility] Comment on above: Performed By: #### A DIFF, A1C, GFR, LIPID, CBC, FT3, CMP, ANEU, TSH, FT4, VIDH ####[address] [place], [place] [address] Basophils/100 WBC (Bld) 0.6 % Normal 0.0-2.5 [facility] Comment on above: Performed By: #### A DIFF, A1C, GFR, LIPID, CBC, FT3, CMP, ANEU, TSH, FT4, VIDH ####[address] [place], [place] [address] Eosinophil, Absolute 0.2 10 3/mcL Normal 0.0-0.7 [facility] Comment on above: Performed By: #### A DIFF, A1C, GFR, LIPID, CBC, FT3, CMP, ANEU, TSH, FT4, VIDH ####[address] [address] Eosinophils/100 WBC (Bld) 2.6 % Normal 0.0-6.0 [facility] Comment on above: Performed By: #### A DIFF, A1C, GFR, LIPID, CBC, FT3, CMP, ANEU, TSH, FT4, VIDH ####[address] [address] Lymphocyte, Absolute 1.4 10 3/mcL Normal 0.9-4.3 [facility] Comment on above: Performed By: #### A DIFF, A1C, GFR, LIPID, CBC, FT3, CMP, ANEU, TSH, FT4, VIDH ####[address] [address] Lymphocytes/100 WBC (Bld) 21.3 % Normal 20.0-40.0 [facility] Comment on above: Performed By: #### A DIFF, A1C, GFR, LIPID, CBC, FT3, CMP, ANEU, TSH, FT4, VIDH ####[address] [address] Monocyte, Absolute 0.4 10 3/mcL Normal 0.1-1.4 [facility] Comment on above: Performed By: #### A DIFF, A1C, GFR, LIPID, CBC, FT3, CMP, ANEU, TSH, FT4, VIDH ####[address] [address] Monocytes/100 WBC (Bld) 6.5 % Normal 2.0-13.0 [facility] Comment on above: Performed By: #### A DIFF, A1C, GFR, LIPID, CBC, FT3, CMP, ANEU, TSH, FT4, VIDH ####[address] [address] Neutrophils/100 WBC (Bld) 69.0 % Normal 50.0-75.0 [facility] Comment on above: Performed By: #### A DIFF, A1C, GFR, LIPID, CBC, FT3, CMP, ANEU, TSH, FT4, VIDH ####[address] [place], [place] [address] .GFRon 03-21-2025 Estimated Glomerular Filtration Rate 64 ml/min/1.73sqm Normal [facility] Comment on above: Result Comment: Stages of Chronic Kidney Disease (CKD) Stage Description eGFR(ml/min/1.73 sq.m.) CKD 1 Normal kidney function or >=90 normal kindney function with possible kidney damage (ex. Proteinuria) CKD 2 Kidney damage with mild loss 60-89 of kidney function CKD 3a Mild to moderate loss of kidney 45-59 function CKD 3b Moderate to severe loss of 30-44 of kindey function CKD 4 Severe loss of kidney function 15-29 CKD 5 Kidney failure <15 Note: (go live 2024) the eGFR calculation was updated to the 2020 CKD-EPI creatinine equation without a race factor to calculate the eGFR results. Performed By: #### A DIFF, A1C, GFR, LIPID, CBC, FT3, CMP, ANEU, TSH, FT4, VIDH ####[address] [place], [place] [address] .NEUABSon 03-21-2025 Neutrophil, Absolute 4.5 10 3/mcL Normal 2.3-8.1 [facility] Comment on above: Performed By: #### A DIFF, A1C, GFR, LIPID, CBC, FT3, CMP, ANEU, TSH, FT4, VIDH ####[address] [place], [place] [address] A1Con 03-21-2025 Glucose [Mass/Vol] 100 mg/dL Normal [facility] Comment on above: Result Comment: Aida mated Average Glucose calculated by equation ((28.7xA1C)-46.7) Estimated average glucose (eAG) is a calculated value from Hemoglobin A1C and is public relations representative of the average blood glucose level in the last 2-3 month period. Normal range: less than 114 mg/dL Performed By: #### A DIFF, A1C, GFR, LIPID, CBC, FT3, CMP, ANEU, TSH, FT4, VIDH ####[address] [address] HbA1c (Bld) [Mass fraction] 5.1 % Normal 4.3-6.4 [facility] Comment on above: Performed By: #### A DIFF, A1C, GFR, LIPID, CBC, FT3, CMP, ANEU, TSH, FT4, VIDH ####[address] [address] CBCon 03-21-2025 Erythrocyte distribution width (RBC) [Ratio] 13.6 % Normal 11.5-15.5 [facility] Comment on above: Performed By: #### A DIFF, A1C, GFR, LIPID, CBC, FT3, CMP, ANEU, TSH, FT4, VIDH ####[id number] [place] [address] Hematocrit (Bld) [Volume fraction] 44.6 % Normal 34.0-46.0 [facility] Comment on above: Performed By: #### A DIFF, A1C, GFR, LIPID, CBC, FT3, CMP, ANEU, TSH, FT4, VIDH ####[address] [address] Hgb 15.5 G/dL Normal 12.0-16.0 [facility] Comment on above: Performed By: #### A DIFF, A1C, GFR, LIPID, CBC, FT3, CMP, ANEU, TSH, FT4, VIDH ####[place] [address] MCH (RBC) [Entitic mass] 29.6 pg Normal 27.0-33.0 [facility] Comment on above: Performed By: #### A DIFF, A1C, GFR, LIPID, CBC, FT3, CMP, ANEU, TSH, FT4, VIDH ####[place] [address] MCHC 34.8 G/dL Normal 32.0-36.0 [facility] Comment on above: Performed By: #### A DIFF, A1C, GFR, LIPID, CBC, FT3, CMP, ANEU, TSH, FT4, VIDH ####[id number] [place], [place] [address] MCV (RBC) [Entitic vol] 85.2 fL Normal 80.0-99.0 [facility] Comment on above: Performed By: #### A DIFF, A1C, GFR, LIPID, CBC, FT3, CMP, ANEU, TSH, FT4, VIDH ####[facility] [place], [place] [address] Platelet 213 10 3/mcL Normal 150-450 [facility] Comment on above: Performed By: #### A DIFF, A1C, GFR, LIPID, CBC, FT3, CMP, ANEU, TSH, FT4, VIDH ####[address] [place], [place] [address] Platelet mean volume (Bld) [Entitic vol] 8.1 fL Normal 6.6-10.5 [facility] Comment on above: Performed By: #### A DIFF, A1C, GFR, LIPID, CBC, FT3, CMP, ANEU, TSH, FT4, VIDH ####[address] [place], [place] [address] RBC 5.23 10 6/mcL Normal 4.10-5.30 [facility] Comment on above: Performed By: #### A DIFF, A1C, GFR, LIPID, CBC, FT3, CMP, ANEU, TSH, FT4, VIDH ####[facility] [place], [place] [address] WBC 6.6 10 3/mcL Normal 4.5-10.8 [facility] Comment on above: Performed By: #### A DIFF, A1C, GFR, LIPID, CBC, FT3, CMP, ANEU, TSH, FT4, VIDH ####[address] [place], [place] [address] CMPon 03-21-2025 Albumin Level 4.1 G/dL Normal 3.4-4.8 [facility] Comment on above: Performed By: #### A DIFF, A1C, GFR, LIPID, CBC, FT3, CMP, ANEU, TSH, FT4, VIDH ####[address] [address] Albumin/Globulin [Mass ratio] 1.1 {ratio} Normal 1.1-2.5 [facility] Comment on above: Performed By: #### A DIFF, A1C, GFR, LIPID, CBC, FT3, CMP, ANEU, TSH, FT4, VIDH ####[address] [address] ALP [Catalytic activity/Vol] 79 U/L Normal 40-135 [facility] Comment on above: Performed By: #### A DIFF, A1C, GFR, LIPID, CBC, FT3, CMP, ANEU, TSH, FT4, VIDH ####[place] [address] ALT [Catalytic activity/Vol] 21 U/L Normal 14-59 [facility] Comment on above: Performed By: #### A DIFF, A1C, GFR, LIPID, CBC, FT3, CMP, ANEU, TSH, FT4, VIDH ####[place] [id number] AST [Catalytic activity/Vol] 23 U/L Normal 10-40 [facility] Comment on above: Performed By: #### A DIFF, A1C, GFR, LIPID, CBC, FT3, CMP, ANEU, TSH, FT4, VIDH ####[address] [address] Bili Total 0.6 mg/dL Normal 0.2-1.0 [facility] Comment on above: Result Comment: Use of this assay is not recommended for patients undergoing treatment with eltrombopag due to the potential for falsely elevated results. Performed By: #### A DIFF, A1C, GFR, LIPID, CBC, FT3, CMP, ANEU, TSH, FT4, VIDH ####[address] [address] BUN/Creatinine Ratio 22 ratio Normal 7-27 [facility] Comment on above: Performed By: #### A DIFF, A1C, GFR, LIPID, CBC, FT3, CMP, ANEU, TSH, FT4, VIDH ####[address] [address] Calcium [Mass/Vol] 9.6 mg/dL Normal 8.4-10.2 [facility] Comment on above: Performed By: #### A DIFF, A1C, GFR, LIPID, CBC, FT3, CMP, ANEU, TSH, FT4, VIDH ####[address] [address] Chloride [Moles/Vol] 102 mmol/L Normal 98-107 [facility] Comment on above: Performed By: #### A DIFF, A1C, GFR, LIPID, CBC, FT3, CMP, ANEU, TSH, FT4, VIDH ####[place] [address] CO2 [Moles/Vol] 33 mmol/L High 23-31 [facility] Comment on above: Performed By: #### A DIFF, A1C, GFR, LIPID, CBC, FT3, CMP, ANEU, TSH, FT4, VIDH ####[place] [address] Creatinine [Mass/Vol] 0.93 mg/dL Normal 0.51-0.95 [facility] Comment on above: Performed By: #### A DIFF, A1C, GFR, LIPID, CBC, FT3, CMP, ANEU, TSH, FT4, VIDH ####[place] [address] Electrolyte Balance 5.0 mEq/L Normal 4.0-15.0 [facility] Comment on above: Performed By: #### A DIFF, A1C, GFR, LIPID, CBC, FT3, CMP, ANEU, TSH, FT4, VIDH ####[place] [address] Globulin 3.8 G/dL Normal 2.7-4.4 [facility] Comment on above: Performed By: #### A DIFF, A1C, GFR, LIPID, CBC, FT3, CMP, ANEU, TSH, FT4, VIDH ####[place] [address] Glucose [Mass/Vol] 95 mg/dL Normal 83-110 [facility] Comment on above: Performed By: #### A DIFF, A1C, GFR, LIPID, CBC, FT3, CMP, ANEU, TSH, FT4, VIDH ####[address] [address] Potassium [Moles/Vol] 4.1 mmol/L Normal 3.5-5.1 [facility] Comment on above: Performed By: #### A DIFF, A1C, GFR, LIPID, CBC, FT3, CMP, ANEU, TSH, FT4, VIDH ####[address] [place], [place] [address] Sodium [Moles/Vol] 140 mmol/L Normal 136-145 [facility] Comment on above: Performed By: #### A DIFF, A1C, GFR, LIPID, CBC, FT3, CMP, ANEU, TSH, FT4, VIDH ####[address] [address] Total Protein 7.9 G/dL Normal 6.4-8.2 [facility] Comment on above: Performed By: #### A DIFF, A1C, GFR, LIPID, CBC, FT3, CMP, ANEU, TSH, FT4, VIDH ####[address] [address] Urea nitrogen [Mass/Vol] 20 mg/dL High 7-18 [facility] Comment on above: Performed By: #### A DIFF, A1C, GFR, LIPID, CBC, FT3, CMP, ANEU, TSH, FT4, VIDH ####[address] [address] FT3on 03-21-2025 Free T3 [Mass/Vol] 2.43 pg/mL Normal 2.30-4.00 [facility] Comment on above: Performed By: #### A DIFF, A1C, GFR, LIPID, CBC, FT3, CMP, ANEU, TSH, FT4, VIDH ####[address] [address] FT4on 10-16-2025 Free T4 [Mass/Vol] 1.42 ng/dL Normal 0.76-1.46 [facility] Comment on above: Performed By: #### A DIFF, A1C, GFR, LIPID, CBC, FT3, CMP, ANEU, TSH, FT4, VIDH ####[address] [place], [place] [address] LABORATORYOrdered By: SYSTEM SYSTEM on 03-21-2025 25-hydroxyvitamin D3 [Mass/Vol] 94.5 ng/mL Invalid Interpretation Code AO ADM SS Comment on above: Interpretive Data: I nterpretive Values Based on Total 25(OH) Vitamin D: Deficient <20 ng/mL Insufficient 20 - <30 ng/mL Sufficient 30-100 ng/mL Albumin BCP dye [Mass/Vol] 4.1 G/dL Normal 3.4 - 4.8 G/dL AO ADM SS Albumin/Globulin [Mass ratio] 1.1 {ratio} Normal 1.1 - 2.5 ratio AO ADM SS ALP [Catalytic activity/Vol] 79 U/L Normal 40 - 135 U/L AO ADM SS ALT With P-5'-P [Catalytic activity/Vol] 21 U/L Normal 14 - 59 U/L AO ADM SS AST With P-5'-P [Catalytic activity/Vol] 23 U/L Normal 10 - 40 U/L AO ADM SS Basophils (Bld) [#/Vol] 0.0 103/mcL Normal 0.0 - 0.3 10^3/mcL AO Workflow SS Basophils/100 WBC (Bld) 0.6 % Normal 0.0 - 2.5 % AO Workflow SS Bilirubin [Mass/Vol] 0.6 mg/dL Normal 0.2 - 1 .0 mg/dL AO ADM SS Comment on above: Interpretive Data: U se of this assay is not recommended for patients undergoing treatment with eltrombopag due to the potential for falsely elevated results. Calcium [Mass/Vol] 9.6 mg/dL Normal 8.4 - 10. 2 mg/dL AO ADM SS Chloride [Moles/Vol] 102 mmol/L Normal 98 - 10 7 mmol/L AO ADM SS CO2 [Moles/Vol] 33 mmol/L High 23 - 31 mmol/L AO ADM SS Creatinine [Mass/Vol] 0.93 mg/dL Normal 0.51 - 0.95 mg/dL AO ADM SS Electrolyte Balance 5.0 mEq/L Normal 4.0 - 15 .0 mEq/L AO ADM SS Eosinophil, Absolute 0.2 103/mcL Normal 0.0 - 0 .7 10^3/mcL AO Workflow SS Eosinophils/100 WBC (Bld) 2.6 % Normal 0.0 - 6.0 % AO Workflow SS Erythrocyte distribution width (RBC) [Ratio] 13.6 % Normal 11.5 - 15.5 % AO Workflow SS Free T3 [Mass/Vol] 2.43 pg/mL Normal 2.30 - 4. 00 pg/mL AO ADM SS Free T4 [Mass/Vol] 1.42 ng/dL Normal 0.76 - 1. 46 ng/dL AO ADM SS Globulin 3.8 G/dL Normal 2.7 - 4.4 G/dL AO ADM SS GLOMERULAR FILTRATION RATE/1.73 SQ M.PREDICTED:ARVRAT:PT :SER/PLAS/BLD:QN:CREA TININE-BASED FORMULA (CKD-EPI 2020) 64 ml/min/1.73sqm Invalid Interpretation Code AO Chemistry S Comment on above: Interpretive Data: Stages of Chronic Kidney Disease (CKD) Stage Description eGFR(ml/min/1.73 sq.m.) CKD 1 Normal kidney function or >=90 normal kindney function with possible kidney damage (ex. Proteinuria) CKD 2 Kidney damage with mild loss 60-89 of kidney function CKD 3a Mild to moderate loss of kidney 45-59 function CKD 3b Moderate to severe loss of 30-44 of kindey function CKD 4 Severe loss of kidney function 15-29 CKD 5 Kidney failure <15 Note: (go live 2024) the eGFR calculation was updated to the 2020 CKD-EPI creatinine equation without a race factor to calculate the eGFR results. Glucose [Mass/Vol] 100 mg/dL Invalid Interpretation Code AO Chemistry S Comment on above: Interpretive Data: E stimated average glucose (eAG) is a calculated value from Hemoglobin A1C and is public relations representative of the average blood glucose level in the last 2-3 month period. Normal range: less than 114 mg/dL Glucose [Mass/Vol] 95 mg/dL Normal 83 - 110 mg/dL AO ADM SS HbA1c (Bld) [Mass fraction] 5.1 % Normal 4.3 - 6.4 % AO ADM SS Hematocrit (Bld) [Volume fraction] 44.6 % Normal 34.0 - 46.0 % AO Workflow SS Hemoglobin (Bld) [Mass/Vol] 15.5 G/dL Normal 12.0 - 16.0 G/dL AO Workflow SS Lymphocytes (Bld) [#/Vol] 1.4 103/mcL Normal 0.9 - 4.3 10^3/mcL AO Workflow SS Lymphocytes/100 WBC (Bld) 21.3 % Normal 20.0 - 40.0 % AO Workflow SS MCH (RBC) [Entitic mass] 29.6 pg Normal 27.0 - 33.0 pg AO Workflow SS MCHC 34.8 G/dL Normal 32.0 - 36.0 G/dL AO Workflow SS MCV (RBC) [Entitic vol] 85.2 fL Normal 80.0 - 99.0 fL AO Workflow SS Monocytes (Bld) [#/Vol] 0.4 103/mcL Normal 0.1 - 1.4 10^3/mcL AO Workflow SS Monocytes/100 WBC (Bld) 6.5 % Normal 2.0 - 13.0 % AO Workflow SS Neutrophils (Bld) [#/Vol] 4.5 103/mcL Normal 2.3 - 8.1 10^3/mcL AO Workflow SS Neutrophils/100 WBC (Bld) 69.0 % Normal 50.0 - 75.0 % AO Workflow SS Platelet mean volume (Bld) [Entitic vol] 8.1 fL Normal 6.6 - 10.5 fL AO Workflow SS Platelets (Bld) [#/Vol] 213 103/mcL Normal 150 - 450 10^3/mcL AO Workflow SS Potassium [Moles/Vol] 4.1 mmol/L Normal 3.5 - 5.1 mmol/L AO ADM SS Protein [Mass/Vol] 7.9 G/dL Normal 6.4 - 8.2 G/dL AO ADM SS RBC (Bld) [#/Vol] 5.23 106/mcL Normal 4.10 - 5.3 0 10^6/mcL AO Workflow SS Sodium [Moles/Vol] 140 mmol/L Normal 136 - 145 mmol/L AO ADM SS TSH Qn 1.80 m[IU]/L Normal 0.36 - 3.74 mcIU/mL AO ADM SS Urea nitrogen [Mass/Vol] 20 mg/dL High 7 - 18 mg/dL AO ADM SS Urea nitrogen/Creatinine [Mass ratio] 22 ratio Normal 7 - 27 ratio AO ADM SS WBC (Bld) [#/Vol] 6.6 103/mcL Normal 4.5 - 10.8 10^3/mcL AO Workflow SS LABORATORYOrdered By: Manuel Islas on 03-21-2025 Cholesterol [Mass/Vol] 201 mg/dL High 0 - 200 mg/dL AO ADM SS Comment on above: Interpretive Data: C holesterol Reference Interval: Less than 200 Desirable 200-239 Borderline high risk 240 and above High risk Cholesterol in HDL [Mass/Vol] 52 mg/dL Normal 40 - 60 mg/dL AO ADM SS Cholesterol in LDL [Mass/Vol] 127 mg/dL Normal 0 - 130 mg/dL AO ADM SS Triglyceride [Mass/Vol] 111 mg/dL Normal 0 - 150 mg/dL AO ADM SS Comment on above: Interpretive Data: T riglyceride Reference Interval: Less than 150 Normal 150-199 Borderline high risk 200-499 High risk 500 or higher Very high risk LIPIDon 03-21-2025 Cholesterol [Mass/Vol] 201 mg/dL High 0-200 [facility] Comment on above: Result Comment: Chol esterol Reference Interval: Less than 200 Desirable 200-239 Borderline high risk 240 and above High risk Performed By: #### A DIFF, A1C, GFR, LIPID, CBC, FT3, CMP, ANEU, TSH, FT4, VIDH ####[id number] [place], [place] [address] Cholesterol in HDL [Mass/Vol] 52 mg/dL Normal 40-60 [facility] Comment on above: Performed By: #### A DIFF, A1C, GFR, LIPID, CBC, FT3, CMP, ANEU, TSH, FT4, VIDH ####[id number] [place], [place] [address] Cholesterol in LDL [Mass/Vol] 127 mg/dL Normal 0-130 [facility] Comment on above: Performed By: #### A DIFF, A1C, GFR, LIPID, CBC, FT3, CMP, ANEU, TSH, FT4, VIDH ####[id number] [place], [place] [address] Triglyceride [Mass/Vol] 111 mg/dL Normal 0-150 [facility] Comment on above: Result Comment: Trig lyceride Reference Interval: Less than 150 Normal 150-199 Borderline high risk 200-499 High risk 500 or higher Very high risk Performed By: #### A DIFF, A1C, GFR, LIPID, CBC, FT3, CMP, ANEU, TSH, FT4, VIDH ####[address] [place], [place] [address] TSHon 03-21-2025 TSH Qn 1.80 m[IU]/L Normal 0.36-3.74 [facility] Comment on above: Performed By: #### A DIFF, A1C, GFR, LIPID, CBC, FT3, CMP, ANEU, TSH, FT4, VIDH ####[address] [place], [place] [address] VIDHon 03-21-2025 Vit. D 25-Hydroxy 94.5 ng/mL Normal [facility] Comment on above: Result Comment: Inte rpretive Values Based on Total 25(OH) Vitamin D: Deficient <20 ng/mL Insufficient 20 - <30 ng/mL Sufficient 30-100 ng/mL Performed By: #### A DIFF, A1C, GFR, LIPID, CBC, FT3, CMP, ANEU, TSH, FT4, VIDH ####[facility] [place], [place] [address] Plastic Surgery Visit Report on 03-08-2025 Plastic Surgery Visit Report [facility] Plastic Reconstructive Surgery [address], [address] [place] [address] OFFICE VISIT Date of Service: 03/08/25 MR#: [id number] Acct: [id number] Name: FREDI KAPOOR Rep #: [id number] : 1950 Provider: Dr. Vito Montano MD Age/Sex: 74/F Location: [facility] Status: Signed with Addenda ADDENDUM by Dr. Vito Montano MD on 03/08/25 at 1649 Assessment and Plan (No Qualifiers) Assessment and Plan (1) Heart valve problem: Status: Acute (2) Vascular disease: Status: Acute (3) Thyroid disease: Status: Acute (4) Hypertension: Status: Chronic (5) Cataracts, bilateral: Status: Acute (6) Dermatochalasis of both upper eyelids: Status: Acute 03/08/25 1649 Date Vito Montano MD cc: * Signed Intake Vital Signs 03/08/25 10:40 Height 5 ft 2 in Weight: 152 lb BMI 27.8 BP 125/78 H Blood Pressure Location Rt brachial Position Sitting Respiration 18 Pulse 55 L Pulse Source Monitor Pulse Oximetry (%) 98 Oxygen Delivery Method room air Intake Visit Reasons: UPPER BLEPH Chief Complaint: Upper Bleph Is patient in pain?: No Allergies codeine Allergy (Verified 03/08/25 10:40) Rash Penicillins (PCN) Allergy (Verified 03/08/25 10:40) Rash propoxyphene HCl (From Darvon) Allergy (Verified 03/08/25 10:40) Rash Sulfa (Sulfonamide Antibiotics) Allergy (Verified 03/08/25 10:40) Rash Medications ???Medication ???Instructions ???Recorded ???Confirmed ???Type clonidine HCl 0.1 mg tablet 0.1 mg PO DAILY 09/09/14 09/09/14 History cyanocobalamin (vitamin B-12) 1,000 mcg sublingual DAILY 5 03/08/25 History 1,000 mcg sublingual tablet esomeprazole magnesium 20 mg 20 mg PO DAILY 09/09/14 09/09/14 H istory capsule,delayed release (Nexium) fluticasone propionate 50 1 spray DAILY 09/09/14 09/09/14 Hi story mcg/actuation nasal spray,suspension levothyroxine 100 mcg tablet 100 mcg PO DAILY 09/09/14 09/09/14 History omega-3 fatty acids-fish oil 684 1 ea PO DAILY 09/09/14 09/09/14 Hi story mg-1,200 mg capsule,delayed release (One-Per-Day [place]-3) amlodipine 10 mg tablet 10 mg PO QDAY 03/08/25 03/08/25 Hi story calcium carbonate (Calcium 600) 600 mg PO QDAY 03/08/25 03/08/25 H istory cholecalciferol (vitamin D3) 125 125 mcg PO QDAY 03/08/25 03/08/25 History mcg (5,000 unit) capsule levothyroxine 100 mcg tablet 100 mcg PO QDAY 03/08/25 03/08/25 History (Synthroid) vitamin K2 45 mcg capsule 45 mcg PO QDAY 03/08/25 03/08/25 H istory Have you fallen in the past year?: No PFSH Medical History Cataracts, bilateral Hypertension Thyroid disease Vascular disease Heart valve problem Surgical History History of cholecystectomy Colorectal cancer H/O: hysterectomy Social History (Updated 03/08/25 @ 10:28 by Britni Quan) Smoking Status: Never smoker HPI UPPER BLEPH Details: The patient is a 74-year-old female presenting with eyelid excess skin. She reports that her eyelids have become progressively heavier over the past few years, leading to difficulty in vision, particularly when looking upwards. The heaviness of the eyelids has been noticeable since it was first recommended for evaluation a couple of years ago. The patient experiences some difficulty seeing traffic lights without adjusting her neck position, indicating the impact of the eyelid ptosis on her daily activities. She denies any dry eyes but mentions that cataracts are being monitored by her conveyor monitor. The patient has a history of hypothyroidism, for which she has been on medication since the age of 18. No history of thyroid eye disease. No dry eyes. Does not use Botox. Non-smoker ROS: - Ophthalmic: Reports heaviness of eyelids, denies dry eyes - Endocrine: Reports history of hypothyroidism Attestation: Documentation on this patient encounter was supported using ambient scribe technology/ voice AI technology. The patient consented to recording for the purpose of documenting the encounter. Provider reviewed content of the generated note prior to signature. ROS General General: Yes good health; No fatigue, fever(s) or weight loss HENMT HENMT: No rhinitis, sore throat/mouth sore, nasal congestion, contacts or glaucoma Endo Endocrine: No thyroid disease, polydipsia, heat intolerance, cold intolerance, hepatitis or excessive urine Skin Skin: No Bleeding, bruising, changing moles or suspicious lesion Musc Musculoskeletal: Yes osteoarthritis; No joint pain, joint stiffness, muscle weakness, back pain or Muscle aches/ myalgia Neuro Neurological: No headache(s), No lightheade (more content not included)... Normal [facility] CBC W Auto Differential pane l (Bld)Ordered By: Alisha Trimble on 01-27-2025 Basophils (Bld) [#/Vol] 0 10*3/uL 0.0 - 0.2 10*3/uL [facility] Basophils/100 WBC (Bld) 0.3 % 0.0 - 2.0 % [facility] Eosinophils (Bld) [#/Vol] 0.3 10*3/uL 0.0 - 0.5 10*3/uL [facility] Eosinophils/100 WBC (Bld) 2.8 % 0.0 - 6.0 % [facility] Erythrocyte distribution width (RBC) [Ratio] 13.3 % 11.5 - 15.0 % [facility] Hematocrit (Bld) [Volume fraction] 43.5 % 35.0 - 47.0 % [facility] Hemoglobin (Bld) [Mass/Vol] 15.3 g/dL 11.7 - 16.0 g/dL [facility] Immature granulocytes (Bld) [#/Vol] 0.1 10*3/uL High NINF - 0.1 10*3/uL [facility] Immature granulocytes/100 WBC (Bld) 0.7 % 0.0 - 2.0 % [facility] Interpretation and review of laboratory results Abnormal [facility] Lymphocytes (Bld) [#/Vol] 1.3 10*3/uL 1.0 - 4.3 10*3/uL [facility] Lymphocytes/100 WBC (Bld) 12.6 % Low 15.0 - 45.0 % [facility] MCH (RBC) [Entitic mass] 28.9 pg 26.0 - 34.[address] [facility] MCHC (RBC) [Mass/Vol] 35.2 % 30.5 - 36.0 % [facility] MCV (RBC) [Entitic vol] 82.2 fL 77.0 - 99.[address] [facility] Monocytes (Bld) [#/Vol] 0.6 10*3/uL 0.0 - 0.9 10*3/uL [facility] Monocytes/100 WBC (Bld) 5.5 % 5.0 - 13.0 % [facility] Neutrophils (Bld) [#/Vol] 8.2 10*3/uL High 1.8 - 7.5 10*3/uL [facility] Neutrophils/100 WBC (Bld) 78.1 % 38.0 - 82.0 % [facility] Nucleated RBC/100 WBC (Bld) [Ratio] 0 % [facility] Platelet mean volume (Bld) [Entitic vol] 9.3 fL 9.0 - 12.7 fL [facility] Platelets (Bld) [#/Vol] 247 10*3/uL 140 - 440 10*3/uL [facility] RBC (Bld) [#/Vol] 5.29 10*6/uL High 3.80 - 5.2 0 10*6/uL [facility] WBC (Bld) [#/Vol] 10.5 10*3/uL 3.6 - 10.7 10*3/uL [facility] CT Abdomen and Pelvis W cont rast Amauri 01-27-2025 No acute abdominopelvic process identified. Other chronic findings as discussed. Report Dictated on Electronically Signed By: José Donald MD Electronically Signed Date/Time: 01/27/2025 4:16 PM [facility] Patient Name: FREDI KAPOOR : 1950 [facility]#: [id number] Exam Date/Time: 01/27/2025 15:23 Procedure: CT ABDOMEN PELVIS W CONTRAST Ordering Provider: BENDER MICHAEL Reason For Exam: lower abd pain and rectal bleeding, prior colon ca s/p resection several yrs ago CT ABDOMEN AND PELVIS WITH CONTRAST CLINICAL INDICATION: Lower abdominal pain, rectal bleeding TECHNIQUE: Transaxial sequence was performed through the abdomen and pelvis during the intravenous infusion of 75 mL nonionic contrast media . Oral contrast: Not given Dose reduction was employed with automated exposure control. COMPARISON: None. FINDINGS: Lung bases: No pleural effusion or focal consolidation. Chest wall: Unremarkable. Liver: The liver is normal in size and contour. No focal hepatic lesions identified. Biliary system: Extrahepatic biliary ductal dilatation is noted, compatible with reservoir effect. Postsurgical changes compatible with cholecystectomy are noted. Spleen: The spleen is normal in size and contour. Pancreas: No significant abnormality. Adrenal glands: No significant abnormality. Kidneys/ Ureter: Symmetric renal enhancement is noted. No evidence of hydroureteronephrosis. No evidence of nephrolithiasis. Subcentimeter hypoattenuating hypoenhancing structures are noted in the kidney, too small to definitively characterize but likely representing cysts. Bladder: The urinary bladder is decompressed, limiting detailed evaluation. Pelvic organs: Postsurgical changes compatible with hysterectomy are observed. Otherwise, no evidence of pelvic masses. Bowel: Esophagus is unremarkable. The stomach is unremarkable. Postsurgical changes are noted in the in the small bowel. Otherwise, the small bowel is of normal caliber throughout without evidence of wall thickening or obstruction. The appendix is not definitively visualized, however, there is no evidence of periappendiceal fat stranding to suggest appendicitis. The large bowel is without evidence of dilatation or thickening. Mesentery/Intraperiton eum: No intraperitoneal free fluid or air is seen. Mesentery is normal in appearance. Lymph nodes: No lymphadenopathy Vasculature: Atherosclerotic calcifications are noted throughout the abdominal pelvic vasculature. Otherwise, the abdominal aorta is normal in caliber without evidence of aneurysmal dilatation. The venous vasculature appears grossly unremarkable. Abdominal wall: The abdominal wall soft tissues appear unremarkable. Osseous structures: No suspicious osseous lesions identified. Mild degenerative changes of the lumbar spine are observed. [facility] José Donald MD - 01/27/2025 Patient Name: FREDI [facility]APOOR : 1950 [id number] Exam Date/Time: 01/27/2025 15:23 Procedure: CT ABDOMEN PELVIS W CONTRAST Ordering Provider: BENDER MICHAEL Reason For Exam: lower abd pain and rectal bleeding, prior colon ca s/p resection several yrs ago CT ABDOMEN AND PELVIS WITH CONTRAST CLINICAL INDICATION: Lower abdominal pain, rectal bleeding TECHNIQUE: Transaxial sequence was performed through the abdomen and pelvis during the intravenous infusion of 75 mL nonionic contrast media . Oral contrast: Not given Dose reduction was employed with automated exposure control. COMPARISON: None. FINDINGS: Lung bases: No pleural effusion or focal consolidation. Chest wall: Unremarkable. Liver: The liver is normal in size and contour. No focal hepatic lesions identified. Biliary system: Extrahepatic biliary ductal dilatation is noted, compatible with reservoir effect. Postsurgical changes compatible with cholecystectomy are noted. Spleen: The spleen is normal in size and contour. Pancreas: No significant abnormality. Adrenal glands: No significant abnormality. Kidneys/ Ureter: Symmetric renal enhancement is noted. No evidence of hydroureteronephrosis. No evidence of nephrolithiasis. Subcentimeter hypoattenuating hypoenhancing structures are noted in the kidney, too small to definitively characterize but likely representing cysts. Bladder: The urinary bladder is decompressed, limiting detailed evaluation. Pelvic organs: Postsurgical changes compatible with hysterectomy are observed. Otherwise, no evidence of pelvic masses. Bowel: Esophagus is unremarkable. The stomach is unremarkable. Postsurgical changes are noted in the in the small bowel. Otherwise, the small bowel is of normal caliber throughout without evidence of wall thickening or obstruction. The appendix is not definitively visualized, however, there is no evidence of periappendiceal fat stranding to suggest appendicitis. The large bowel is without evidence of dilatation or thickening. Mesentery/Intraperiton eum: No intraperitoneal free fluid or air is seen. Mesentery is normal in appearance. Lymph nodes: No lymphadenopathy Vasculature: Atherosclerotic calcifications are noted throughout the abdominal pelvic vasculature. Otherwise, the abdominal aorta is normal in caliber without evidence of aneurysmal dilatation. The venous vasculature appears grossly unremarkable. Abdominal wall: The abdominal wall soft tissues appear unremarkable. Osseous structures: No suspicious osseous lesions identified. Mild degenerative changes of the lumbar spine are observed. IMPRESSION: No acute abdominopelvic process identified. Other chronic findings as discussed. Report Dictated on Electronically Signed By: José Donald MD Electronically Signed Date/Time: 01/27/2025 4:16 PM EDT [facility] Radiology Study observation (narrative) [facility] CT Abdomen and Pelvis W cont rast IVOrdered By: José Donald on 01-27-2025 [facility] Work Phone: Comprehensive metabolic 1998 panelon 01-27-2025 Albumin [Mass/Vol] 4 g/dL 3.4 - 4.8 g/dL [facility] ALP [Catalytic activity/Vol] 82 U/L 40 - 150 U/L [facility] ALT [Catalytic activity/Vol] 22 U/L NINF - 30 U/L [facility] Anion gap [Moles/Vol] 9 mmol/L 3 - 13 mmol/L [facility] AST [Catalytic activity/Vol] 28 U/L NINF - 34 U/L [facility] Bilirubin [Mass/Vol] 0.5 mg/dL NINF - 1.2 mg/dL [facility] Calcium [Mass/Vol] 9.4 mg/dL 8.8 - 10. 0 mg/dL [facility] Chloride [Moles/Vol] 104 mmol/L 98 - 10 7 mmol/L [facility] CO2 [Moles/Vol] 26 mmol/L 23 - 31 mmol/L [facility] Creatinine [Mass/Vol] 0.92 mg/dL 0.57 - 1.11 mg/dL [facility] GFR/1.73 sq M.predicted (S/P/Bld) [Vol rate/Area] 64.7 mL/min - PINF [facility] Comment on above: Calculation based on the Chronic Kidney Disease Epidemiology Collaboration (CKD-EPI) equation refit without adjustment for race Glucose [Mass/Vol] 106 mg/dL 82 - 115 mg/dL [facility] Potassium [Moles/Vol] 3.9 mmol/L 3.5 - 5.1 mmol/L [facility] Comment on above: Plasma potassium maggi ues may be up to 0.5 mmol/L lower than serum values. Protein [Mass/Vol] 7.4 g/dL 6.4 - 8.3 g/dL [facility] Sodium [Moles/Vol] 139 mmol/L 136 - 145 mmol/L [facility] Urea nitrogen [Mass/Vol] 22 mg/dL 9 - 23 mg/dL [facility] Laboratory - Chemistry and C hemistry - challengeon 01-27-2025 Lipase [Catalytic activity/Vol] 25 U/L NINF - 55 U/L [facility] Lactate [Moles/Vol] 1 mmol/L 0.5 - 2. 2 mmol/L [facility] No Panel Informationon 01-27 Interpretation and review of laboratory results Normal [facility] Interpretation and review of laboratory results Normal [facility] MA MAMMOGRAM SCREENING BILAT ERAL W/TOMOon 12-17-2024 MA MAMMOGRAM SCREENING BILATERAL W/[place] ORIGINAL FROM: DIMITRI CARLSON [address] [place] [id number] PROCEDURE FOR: FREDI KAPOOR [address] [place] [address] Home: PID#: [id number] Exam#: [id number] : 1950 Age: 74 TO: JESSICA DURON DO [address], [place] [address] Fax: NO FAX EXAMINATION: SCREENING DIGITAL BILATERAL MAMMOGRAM WITH TOMOSYNTHESIS, 12/17/2024 8:19 am TECHNIQUE: Screening mammography of the bilateral breasts was performed with tomosynthesis. 2D standard and 3D tomosynthesis combination imaging performed through both breasts in the MLO and CC projection. Computer aided detection was utilized in the interpretation of this exam. COMPARISON: 12/16/2023, 12/14/2022, 12/11/2021, and 11/24/2020 HISTORY: Breast cancer screening. FINDINGS: BREAST DENSITY: There are scattered areas of fibroglandular density. There are biopsy marker clips in both breasts. There is a benign appearing calcification in the right breast. There are no significant masses or calcifications. IMPRESSION: No mammographic evidence of malignancy. Continued screening with annual mammograms is recommended. Tyrer Cuzick risk calculations, generated with the history provided, report this patient's lifetime risk for developing breast cancer at 1.3%. Based on this assessment tool, if the patient's calculated lifetime risk is below 20%, then the patient is considered at average risk for developing breast cancer. If the patient's calculated lifetime risk is at or above 20%, then the patient is considered high risk for developing breast cancer and may be a candidate for supplemental breast MRI screening in addition to annual mammographic screening per the [employer]. I have personally reviewed the images of this examination and agree with the resident's findings and interpretation. BIRADS: BI-RADS: 2: Benign RECALL: 1 year screening RECALL TYPE: mammo LETTER SENT: Normal BI-RADS 1 and 2 Interpreted by: Aron Villasenor MD Preliminary Report By: Mimi Hernandez Electronically signed By Aron Villasenor MD Dictated Date: 12/17/2024 10:27:36 AM Prelim Date: 12/17/2024 4:48:07 PM Sign Date: 12/17/2024 4:48:07 PM Ordering Provider: JESSICA DURON Cremator: GABRIELA ARGUETA RT(R)(M)(CT) letter sent: Normal BI-RADS 1 and 2 Mammogram BI-RADS: 2 Benign Normal [facility] [id number] 10-12-2024 [id number] HNO ID: [id number] Author: RIMMA COLÓN RN Service: ? Author Type: Registered Nurse Type: [id number] Filed: 10/12/2024 15:17 Note Text: The patient received a copy of Colonoscopy discharge instructions that contain information for how to contact the physician who performed the procedure and when to seek medical care. Normal [facility] ANES POSTPROC EVALon 025 ANES POSTPROC EVAL HNO ID: [id number] Author: VISHNU MUHAMMAD APRN.CRNA Service: Anesthesiology Author Type: Nurse Older Adult Social Work Specialist Type: Anesthesia Postprocedure Evaluation Filed: 10/12/2024 15:16 Note Text: POST ANESTHESIA EVALUATION NOTE : 1950 Procedure Summary Date: 10/12/24 Room / Location: Ambulatory Surgery Anesthesia Start: 1443 Anesthesia Stop: 1511 Procedure: COLONOSCOPY SCREENING Diagnosis: Benign neoplasm of colon, unspecified part of colon (High risk colon cancer surveillance: Personal history of colon cancer) Scheduled Providers: Jorje Rayo MD Responsible Provider: Vishnu Muhammad APRN.CRNA Anesthesia Type: MAC ASA Status: 2 Anesthesia Type: MAC Last Vitals Vitals Value Taken Time BP 106/55 10/12/24 1510 Temp 36.6 ?C (97.9 ?F) 10/12/24 1510 Pulse 69 10/12/24 1510 Resp 18 10/12/24 1510 SpO2 97 % 10/12/24 1510 Post Anesthesia Patient Status Patient Evaluation: PACU. PACU/ICU Patient Condition: stable. Anticipated Disposition: phase 2 then home. Neurological Status: aware and responsive. Pulmonary Status: breathing comfortably on room air Airway Control: returned to baseline unsupported. Cardiovascular Status: stable. Pain Management: clinically adequate - multimodal analgesia pain management approach Postoperative Hydration: acceptable. Intraoperative Events: no significant anesthesia events Post Operative Nausea/Vomiting Status: no significant post operative nausea or vomiting Recommendation: continue current plan of care. Anesthesia Observations No Documentation SIGNATURE: Vishnu Muhammad APRN.SALES TEAM MEMBER PATIENT NAME: Fredi Kapoor DATE: October 12, 2024 TIME: 3:15 PM CSN: [id number] Normal [facility] ANES PRE-OPon 10-12-2024 ANES PRE-OP HNO ID: [id number] Author: VISHNU MUHAMMAD APRN.CRNA Service: Anesthesiology Author Type: Nurse Older Adult Social Work Specialist Type: Anesthesia Preprocedure Evaluation Filed: 10/12/2024 14:43 Note Text: ANESTHESIOLOGY DAY OF SURGERY NOTE : 1950 Procedure Information Date/Time: 10/12/24 1445 Scheduled providers: Jorje Rayo MD Procedure: COLONOSCOPY SCREENING Location: Ambulatory Surgery Estimated body mass index is 28.17 kg/m? as calculated from the following: Height as of this encounter: 157.5 cm (5' 2). Weight as of this encounter: 69.9 kg (154 lb). Most recent hematocrit and potassium results: Hematocrit 46.6 07/22/2022 Potassium 4.2 07/22/2022 Relevant Problems NEURO-PSYCH (+) Personal history of rectal cancer I - PHYSICAL EVALUATION AIRWAY Patient intubated: No. Tracheostomy tube not present Mallampati: II. TM distance: >3 FB. Neck ROM: full ROM without neurological symptoms. Mouth opening: adequate. Short neck: no. Thick neck: no DENTAL Dental findings: teeth intact. Additional exam findings: no II - ANESTHESIA PLAN ASA Score: 2 Anesthetic Plan: MAC The patient is not a current smoker. NPO Status: adequate Beta Dawson Monitoring Plan Monitoring plan: standard ASA. Post Procedure Analgesic Plan Postoperative analgesic plan: parenteral or oral opioids and multimodal analgesia. Informed Consent Anesthetic risks, benefits, alternatives, personnel and consent discussed: yes. Patient / Responsible [employer] agrees to proceed: yes Patient / Surrogate agrees to blood products: blood products not planned Significant changes in the patient condition since the History and Physical, not otherwise documented in primary service progress note: no. Potential Anesthesia issues that may suggest increased risk of complications or contraindication to planned procedure: none. Vitals Value Taken Time BP 153/65 10/12/24 1431 Pulse 86 10/12/24 1431 Resp 18 10/12/24 1431 Temp 36.6 ?C (97.9 ?F) 10/12/24 1431 SpO2 97 % 10/12/24 1431 Outpatient Medications as of 10/12/2024 Medication Sig - GAVILYTE-G 236-22.74-6.74 -5.86 gram suspension TAKE 4000 ML BY MOUTH ONE TIME ONLY FOR 1 DOSE. REFER TO PRINTED PREP INSTRUCTIONS FROM PROVIDER - Ouckj-2-ELL-EPA-Fish Oil 1,000 mg (120 mg-180 mg) cap Take 1,000 mg by mouth once daily. - levothyroxine (SYNTHROID) 100 mcg tablet Take 100 mcg by mouth once daily. - Biotin-Silicon Zbda-S-Wggkzwsj 5,000 mcg-100 mg- 50 mg tab Take by mouth once daily. biotin 5000 mcg daily - cholecalciferol (VITAMIN D3) 1,000 unit tab tablet Take 1,000 Units by mouth once daily. - FLAXSEED OIL (OMEGA 3 ORAL) Take 1,000 mg by mouth once daily. - acetaminophen (TYLENOL) 500 mg tablet Take by mouth. - famotidine (PEPCID) 20 mg tablet Take by mouth. - cholestyramine low-calorie (CHOLESTYRAMINE LIGHT) 4 gram packet Take 1 Packet by mouth twice daily. - CYANOCOBALAMIN, VITAMIN B-12, (VITAMIN B-12 ORAL) Take 2,500 mcg by mouth once daily. Facility-Administered Medications as of 10/12/2024 Medication Dose Route Frequency - lidocaine (PF) 10 mg/mL (1 %) 1-2 mg injection (XYLOCAINE) 0.1-0.2 mL INTRADERMAL PRN - lactated ringers iv infusion 30 mL/hr INTRAVENOUS CONTINUOUS I have interviewed and examined the patient. I have reviewed the medical record and/or the pre-anesthesia evaluation, pertinent labs, and test results. This contains updated information obtained within 48 hours of Surgery/Procedure. SIGNATURE: Vishnu Muhammad APRN.SALES TEAM MEMBER PATIENT NAME: Fredi Kapoor DATE: October 12, 2024 TIME: 2:43 PM CSN: [id number] Normal [facility] Colonoscopyon 10-12-2024 Colonoscopy [facility] Gastrointestinal Endoscopy Patient Name: Fredi Kapoor Procedure Date: 10/12/2024 2:37 PM Date of : 1950 Admit Type: Outpatient Age: 74 Room: [facility] 1 Gender: Female Note Status: Finalized Attending MD: Jorje Rayo MD, [id number] Procedure: Colonoscopy Indications: High risk colon cancer surveillance: Personal history of colon cancer Providers: Jorje Rayo MD Patient Profile: Refer to note in patient chart for documentation of history and physical. Last Colonoscopy: October 2021. Referring Physician: Cyrus Powell MD (Referring MD) Medicines: Monitored Anesthesia Care Complications: No immediate complications. Requesting Provider: Procedure: Pre-Anesthesia Assessment: - Prior to the procedure, a History and Physical was performed, and patient medications and allergies were reviewed. The patient is competent. The risks and benefits of the procedure and the sedation options and risks were discussed with the patient. All questions were answered and informed consent was obtained. Patient identification and proposed procedure were verified by the physician and the nurse. Mental Status Examination: alert and oriented. Airway Examination: normal oropharyngeal airway and neck mobility. Respiratory Examination: clear to auscultation. CV Examination: normal. Prophylactic Antibiotics: The patient does not require prophylactic antibiotics. Prior Anticoagulants: The patient has taken no anticoagulant or antiplatelet agents. ASA Grade Assessment: II - A patient with mild systemic disease. After reviewing the risks and benefits, the patient was deemed in satisfactory condition to undergo the procedure. The anesthesia plan was to use monitored anesthesia care (MAC). Immediately prior to administration of medications, the patient was re-assessed for adequacy to receive sedatives. The heart rate, respiratory rate, oxygen saturations, blood pressure, adequacy of pulmonary ventilation, and response to care were monitored throughout the procedure. The physical status of the patient was re-assessed after the procedure. After I obtained informed consent, the scope was passed under direct vision. Throughout the procedure, the patient's blood pressure, pulse, and oxygen saturations were monitored continuously. The Colonoscope was introduced through the anus and advanced to the cecum, identified by appendiceal orifice and ileocecal valve. I was present and participated during the entire procedure, including non-live portions, and during the administration and monitoring of Moderate Sedation. The colonoscopy was performed without difficulty. The patient tolerated the procedure well. The quality of the bowel preparation was adequate after EXTENSIVE lavage. The ileocecal valve, appendiceal orifice, and rectum were photographed. The bowel preparation used was GoLYTELY via split dose instruction. Moderate Sedation: MAC anesthesia was administered by the anesthesia team. MAC anesthesia was administered by the anesthesia team. Findings: The digital rectal exam findings include anal stricture. A 2 mm polyp was found in the descending colon. The polyp was sessile. The polyp was removed with a cold biopsy forceps. Resection and retrieval were complete. A few diverticula were found in the sigmoid colon. Retroflexion in the rectum was not performed due to post-surgical anatomy. The exam was otherwise without abnormality. Impression: - Anal stricture found on digital rectal exam. - One 2 mm polyp in the descending colon, removed with a cold biopsy forceps. Resected and retrieved. - Diverticulosis in the sigmoid colon. - The examination was otherwise normal. Recommendation: - Patient has a contact number available for emergencies. The signs and symptoms of potential delayed complications were discussed with the patient. Return to normal activities tomorrow. Written discharge instructions were provided to the patient. - Resume previous diet today. - Continue present medications. - The patient is not currently taking anticoagulant or antiplatelet agents. - Await pathology results. - Repeat colonoscopy in 5 years for surveillance with 2 days of Golytely split bowel prep. - Return to referring physician as previously scheduled. Attending Participation: I personally performed the entire procedure. Scope In: 2:49:22 PM Scope Out: 3:05:32 PM MD Jorje Adams MD 10/12/2024 3:13:46 PM This report has been signed electronically by Jorje Rayo MD Number of Addenda: 0 Note Initiated On: 10/12/2024 2:37 PM Estimated Blood Loss: Estimated blood loss was minimal. Normal [facility] Colonoscopy Study observatio non 10-12-2024 [facility] Gastrointestinal Endoscopy Patient Name: Fredi Kapoor Procedure Date: 10/12/2024 2:37 PM Date of : 1950 Admit Type: Outpatient Age: 74 Room: [place] [address] Gender: Female Note Status: Finalized Attending MD: Jorje Rayo MD, [id number] Procedure: Colonoscopy Indications: High risk colon cancer surveillance: Personal history of colon cancer Providers: Jorje Rayo MD Patient Profile: Refer to note in patient chart for documentation of history and physical. Last Colonoscopy: October 2021. Referring Physician: Cyrus Powell MD (Referring MD) Medicines: Monitored Anesthesia Care Complications: No immediate complications. Requesting Provider: Procedure: Pre-Anesthesia Assessment: - Prior to the procedure, a History and Physical was performed, and patient medications and allergies were reviewed. The patient is competent. The risks and benefits of the procedure and the sedation options and risks were discussed with the patient. All questions were answered and informed consent was obtained. Patient identification and proposed procedure were verified by the physician and the nurse. Mental Status Examination: alert and oriented. Airway Examination: normal oropharyngeal airway and neck mobility. Respiratory Examination: clear to auscultation. CV Examination: normal. Prophylactic Antibiotics: The patient does not require prophylactic antibiotics. Prior Anticoagulants: The patient has taken no anticoagulant or antiplatelet agents. ASA Grade Assessment: II - A patient with mild systemic disease. After reviewing the risks and benefits, the patient was deemed in satisfactory condition to undergo the procedure. The anesthesia plan was to use monitored anesthesia care (MAC). Immediately prior to administration of medications, the patient was re-assessed for adequacy to receive sedatives. The heart rate, respiratory rate, oxygen saturations, blood pressure, adequacy of pulmonary ventilation, and response to care were monitored throughout the procedure. The physical status of the patient was re-assessed after the procedure. After I obtained informed consent, the scope was passed under direct vision. Throughout the procedure, the patient's blood pressure, pulse, and oxygen saturations were monitored continuously. The Colonoscope was introduced through the anus and advanced to the cecum, identified by appendiceal orifice and ileocecal valve. I was present and participated during the entire procedure, including non-live portions, and during the administration and monitoring of Moderate Sedation. The colonoscopy was performed without difficulty. The patient tolerated the procedure well. The quality of the bowel preparation was adequate after EXTENSIVE lavage. The ileocecal valve, appendiceal orifice, and rectum were photographed. The bowel preparation used was GoLYTELY via split dose instruction. Moderate Sedation: MAC anesthesia was administered by the anesthesia team. MAC anesthesia was administered by the anesthesia team. Findings: The digital rectal exam findings include anal stricture. A 2 mm polyp was found in the descending colon. The polyp was sessile. The polyp was removed with a cold biopsy forceps. Resection and retrieval were complete. A few diverticula were found in the sigmoid colon. Retroflexion in the rectum was not performed due to post-surgical anatomy. The exam was otherwise without abnormality. Impression: - Anal stricture found on digital rect (more content not included)... [employer] [facility] Radiology Study observation (narrative) [facility] HISTORY PHYSICALon HISTORY PHYSICAL HNO ID: [id number] Author: JORJE RAYO MD Service: Gastroenterology Author Type: Physician Type: H&P Filed: 10/12/2024 14:06 Note Text: HISTORY AND PHYSICAL Fredi Kapoor, 74 year old female Current history and physical on file: Yes Is a new History and Physical required for today's visit? Yes Indication for procedure: History of Colon Cancer PROCEDURE(S) SCHEDULED FOR: Colonoscopy with or without biopsies and with or without removal of polyps or lesions, dilation (any means), treatment of bleeding (any means), based on clinical findings. BASELINE BEHAVIOR: Calm BASELINE ORIENTATION: A AND O x3 All medications and allergies reviewed: Yes Skin Assessment: Warm dry mucus membranes pink Airway/Respiratory Assessment: Airway: visualization of the uvula- Yes Mouth: opening greater than 2 fingerbreadths- Yes Neck: full range of motion- Yes Breath sounds clear/equal- Yes Cardiac Assessment: Regular rate and rhythm without murmur Abdominal Assessment: Abdomen soft, non-tender, no masses or organomegaly. Sedation Plan: MAC Additional Comments: None Jorje Rayo MD Normal [facility] Pathology biopsy report Ezekiel (Tiss)on 10-12-2024 AP DISCLAIMER Normal [facility] Comment on above: Order Comment: Speci men Type: TISSUE SPECIMEN Ordering Facility: [facility] Address: [address] [place], [place] [id number] Result Comment: Megha Garcia Test (LDT) Disclaimer: Performance characteristics of immunohistochemical, immunofluorescent, and chromogenic in-situ hybridization tests have been determined by the performing laboratory within [facility]'s [facility] Pathology and Laboratory Medicine Department ([facility], [facility], [facility], [facility], [facility], [facility], or [facility]) in a manner consistent with CLIA requirements. One or more of these tests may not have been cleared or approved by the FDA. [facility] is regulated under CLIA as qualified to perform high-complexity testing. These tests are used for clinical purposes. These should not be regarded as investigational or for research. Positive and negative controls stain appropriately. Performed By: #### 6 6121-5 #### [facility] CLIA [id number] [address] [place] [address] [place] CASE REPORT Normal [facility] Comment on above: Order Comment: Speci men Type: TISSUE SPECIMEN Ordering Facility: [facility] Address: [address] [place] [address] Result Comment: Surg [facility] Pathology Report Case: [id number] Authorizing Provider: Jorje Rayo MD Collected: 10/12/2024 03:01 PM Ordering Location: Ambulatory Surgery Received: 10/12/2024 11:15 PM Pathologist: Lizette Bach MD Specimen: Colon, Descending, Polyp Performed By: #### 6 6121-5 #### [facility] CLIA [id number] [address] [place] [address] FINAL DIAGNOSIS Normal [facility] Comment on above: Order Comment: Speci men Type: TISSUE SPECIMEN Ordering Facility: [facility] Address: [address] [place] [address] Result Comment: A. C olon, descending polyp, biopsy: - Tubular adenoma. IO/ES 10/16/2024 at 1647 EDT Performed By: #### 6 6121-5 #### [facility] CLIA [id number] [address] [place] [address] FINAL PERFORMING LAB Normal [facility] Comment on above: Order Comment: Speci men Type: TISSUE SPECIMEN Ordering Facility: [facility] Address: [address] [place] [address] Result Comment: Diag nostic interpretation performed at: [facility], [address] [place], [place] [id number] CLIA# [id number] Forest [employer] Prevention Manager: Tashi Stern MD Performed By: #### 6 6121-5 #### [facility] CLIA [id number] [address] [place] [address] [place] GROSS DESCRIPTION Normal [facility] Comment on above: Order Comment: Speci men Type: TISSUE SPECIMEN Ordering Facility: [facility] Address: [address] [place] [address] Result Comment: A. C olon, Descending, Polyp Received in formalin is one piece of rome, soft tissue measuring 0.4 x 0.2 x 0.2 cm. Totally submitted in one cassette. October 13, 2024 12:38 AM Gross examination performed at [facility], [address] [place] [address] Performed By: #### 6 6121-5 #### [facility] CLIA [id number] [address] [place] [address] [place] UPEon 09-13-2024 UPE Interpretation There was no appreciable protein detected by electrophoresis of concentrated urine. Normal [facility] Comment on above: Result Comment: Elec tronically Signed by: EVERTON BUCKNER MD 09/13/2024 13:33 EDT Performed By: #### U PE ####[place] [address] SPEon 09-11-2024 Alpha 1 0.1 G/dL Normal 0.1-0.4 [facility] Comment on above: Performed By: #### A DIFF, FES, URIC, ANEU, BMP, FERR, GFR, CBC ####[place] [address]#### SPE, PTH, IFES ####[place] [address] Alpha 2 0.8 G/dL Normal 0.6-1.2 [facility] Comment on above: Performed By: #### A DIFF, FES, URIC, ANEU, BMP, FERR, GFR, CBC ####[place] [id number]#### SPE, PTH, IFES ####[place] [address] SPE Interpretation The alpha-1 fraction is relatively decreased. This may be seen in hereditary deficiencies of axukx-4-fjrhwflsyhg or with resolving acute/subacute inflammation. Suggest repeat serum protein electrophoresis after acute illness has resolved and quantitation of gezyj-3-xytjdnztzpw if decreased alpha-1 fraction persists. Normal [facility] Comment on above: Result Comment: Elec tronically Signed by: EVERTON BUCKNER MD 09/11/2024 14:17 EDT Performed By: #### A DIFF, FES, URIC, ANEU, BMP, FERR, GFR, CBC ####[place] [address]#### SPE, PTH, IFES ####[place] [address] Albumin 4.0 G/dL Normal 3.3-5.0 [facility] Comment on above: Performed By: #### A DIFF, FES, URIC, ANEU, BMP, FERR, GFR, CBC ####[place] [address]#### SPE, PTH, IFES ####[place] [address] Beta 1.3 G/dL Normal 0.6-1.3 [facility] Comment on above: Performed By: #### A DIFF, FES, URIC, ANEU, BMP, FERR, GFR, CBC ####[place] [address]#### SPE, PTH, IFES ####[place] [address] Gamma 1.3 G/dL Normal 0.7-1.6 [facility] Comment on above: Performed By: #### A DIFF, FES, URIC, ANEU, BMP, FERR, GFR, CBC ####[place] [address]#### SPE, PTH, IFES ####[place] [address] IFESon 09-10-2024 IFES Interpretation Immunofixation electrophoresis of serum shows the presence of only polyclonal immunoglobulins (IgG,A,M,[place] and Lambda), No monoclonal protein detected. Normal [facility] Comment on above: Result Comment: Elec tronically Signed by: EVERTON BUCKNER MD 09/10/2024 14:34 EDT Performed By: #### A DIFF, FES, URIC, ANEU, BMP, FERR, GFR, CBC ####[place] [address]#### SPE, PTH, IFES ####[facility] [place] [address] VIDHon 09-10-2024 Vit. D 25-Hydroxy 81.7 ng/mL Normal [facility] Comment on above: Result Comment: Inte rpretive Values Based on Total 25(OH) Vitamin D: Deficient <20 ng/mL Insufficient 20 - <30 ng/mL Sufficient 30-100 ng/mL Performed By: #### V IDH #### [place] [address] .Auto Diffon 09-07-2024 Basophil, Absolute 0.0 10 3/mcL Normal 0.0-0.3 [facility] Comment on above: Performed By: #### A DIFF, FES, URIC, ANEU, BMP, FERR, GFR, CBC #### [place] [address] #### SPE, PTH, IFES #### [place] [address] Basophils/100 WBC (Bld) 0.4 % Normal 0.0-2.5 [facility] Comment on above: Performed By: #### A DIFF, FES, URIC, ANEU, BMP, FERR, GFR, CBC #### [place] [address] #### SPE, PTH, IFES #### [address] [address] Eosinophil, Absolute 0.3 10 3/mcL Normal 0.0-0.7 [facility] Comment on above: Performed By: #### A DIFF, FES, URIC, ANEU, BMP, FERR, GFR, CBC #### [place] [address] #### SPE, PTH, IFES #### [address] [address] Eosinophils/100 WBC (Bld) 3.6 % Normal 0.0-6.0 [facility] Comment on above: Performed By: #### A DIFF, FES, URIC, ANEU, BMP, FERR, GFR, CBC #### [place] [address] #### SPE, PTH, IFES #### [address] [address] Lymphocyte, Absolute 1.5 10 3/mcL Normal 0.9-4.3 [facility] Comment on above: Performed By: #### A DIFF, FES, URIC, ANEU, BMP, FERR, GFR, CBC #### [place] [address] #### SPE, PTH, IFES #### [address] [address] Lymphocytes/100 WBC (Bld) 17.4 % Low 20.0-40.0 [facility] Comment on above: Performed By: #### A DIFF, FES, URIC, ANEU, BMP, FERR, GFR, CBC #### [place] [address] #### SPE, PTH, IFES #### [address] [address] Monocyte, Absolute 0.6 10 3/mcL Normal 0.1-1.4 [facility] Comment on above: Performed By: #### A DIFF, FES, URIC, ANEU, BMP, FERR, GFR, CBC #### [place] [address] #### SPE, PTH, IFES #### [address] [address] Monocytes/100 WBC (Bld) 6.7 % Normal 2.0-13.0 [facility] Comment on above: Performed By: #### A DIFF, FES, URIC, ANEU, BMP, FERR, GFR, CBC #### [address] [address] #### SPE, PTH, IFES #### [address] [address] Neutrophils/100 WBC (Bld) 71.9 % Normal 50.0-75.0 [facility] Comment on above: Performed By: #### A DIFF, FES, URIC, ANEU, BMP, FERR, GFR, CBC #### [address] [address] #### SPE, PTH, IFES #### [address] [address] .GFRon 09-07-2024 Estimated Glomerular Filtration Rate 59 ml/min/1.73sqm Normal [facility] Comment on above: Result Comment: Stages of Chronic Kidney Disease (CKD) Stage Description eGFR(ml/min/1.73 sq.m.) CKD 1 Normal kidney function or >=90 normal kindney function with possible kidney damage (ex. Proteinuria) CKD 2 Kidney damage with mild loss 60-89 of kidney function CKD 3a Mild to moderate loss of kidney 45-59 function CKD 3b Moderate to severe loss of 30-44 of kindey function CKD 4 Severe loss of kidney function 15-29 CKD 5 Kidney failure <15 Note: (go live 2024) the eGFR calculation was updated to the 2020 CKD-EPI creatinine equation without a race factor to calculate the eGFR results. Performed By: #### A DIFF, FES, URIC, ANEU, BMP, FERR, GFR, CBC ####[address] [address]#### SPE, PTH, IFES ####[facility] [place] [address] .NEUABSon 09-07-2024 Neutrophil, Absolute 6.0 10 3/mcL Normal 2.3-8.1 [facility] Comment on above: Performed By: #### A DIFF, FES, URIC, ANEU, BMP, FERR, GFR, CBC #### [address] [address] #### SPE, PTH, IFES #### [address] [address] BMPon 09-07-2024 BUN/Creatinine Ratio 22 ratio Normal 7-27 [facility] Comment on above: Performed By: #### A DIFF, FES, URIC, ANEU, BMP, FERR, GFR, CBC #### [address] [address] #### SPE, PTH, IFES #### [address] [address] Calcium [Mass/Vol] 9.5 mg/dL Normal 8.4-10.2 [facility] Comment on above: Performed By: #### A DIFF, FES, URIC, ANEU, BMP, FERR, GFR, CBC #### [address] [address] #### SPE, PTH, IFES #### [address] [address] Chloride [Moles/Vol] 103 mmol/L Normal 98-107 [facility] Comment on above: Performed By: #### A DIFF, FES, URIC, ANEU, BMP, FERR, GFR, CBC #### [address] [address] #### SPE, PTH, IFES #### [address] [address] CO2 [Moles/Vol] 32 mmol/L High 23-31 [facility] Comment on above: Performed By: #### A DIFF, FES, URIC, ANEU, BMP, FERR, GFR, CBC #### [place] [address] #### SPE, PTH, IFES #### [address] [address] Creatinine [Mass/Vol] 0.99 mg/dL Normal 0.55-1.02 [facility] Comment on above: Result Comment: Test ing performed on Siemens Dimension EXL analyzer using a modified kinetic Estiven technique. Performed By: #### A DIFF, FES, URIC, ANEU, BMP, FERR, GFR, CBC #### [place] [address] #### SPE, PTH, IFES #### [address] [address] Electrolyte Balance 5.0 mEq/L Normal 4.0-15.0 [facility] Comment on above: Performed By: #### A DIFF, FES, URIC, ANEU, BMP, FERR, GFR, CBC #### [place] [address] #### SPE, PTH, IFES #### [address] [address] Glucose [Mass/Vol] 101 mg/dL Normal 83-110 [facility] Comment on above: Performed By: #### A DIFF, FES, URIC, ANEU, BMP, FERR, GFR, CBC #### [place] [address] #### SPE, PTH, IFES #### [place] [address] Potassium [Moles/Vol] 3.8 mmol/L Normal 3.5-5.1 [facility] Comment on above: Performed By: #### A DIFF, FES, URIC, ANEU, BMP, FERR, GFR, CBC #### [place] [address] #### SPE, PTH, IFES #### [address] [address] Sodium [Moles/Vol] 140 mmol/L Normal 136-145 [facility] Comment on above: Performed By: #### A DIFF, FES, URIC, ANEU, BMP, FERR, GFR, CBC #### [place] [address] #### SPE, PTH, IFES #### [address] [address] Urea nitrogen [Mass/Vol] 22 mg/dL High 7-18 [facility] Comment on above: Performed By: #### A DIFF, FES, URIC, ANEU, BMP, FERR, GFR, CBC #### [place] [address] #### SPE, PTH, IFES #### [place] [address] CBCon 09-07-2024 Erythrocyte distribution width (RBC) [Ratio] 13.9 % Normal 11.5-15.5 [facility] Comment on above: Performed By: #### A DIFF, FES, URIC, ANEU, BMP, FERR, GFR, CBC #### [place] [address] #### SPE, PTH, IFES #### [place] [address] Hematocrit (Bld) [Volume fraction] 43.7 % Normal 34.0-46.0 [facility] [facility] Comment on above: Performed By: #### A DIFF, FES, URIC, ANEU, BMP, FERR, GFR, CBC #### [place] [address] #### SPE, PTH, IFES #### [place] [address] Hgb 15.3 G/dL Normal 12.0-16.0 [facility] Comment on above: Performed By: #### A DIFF, FES, URIC, ANEU, BMP, FERR, GFR, CBC #### [place] [address] #### SPE, PTH, IFES #### [place] [address] MCH (RBC) [Entitic mass] 29.6 pg Normal 27.0-33.0 [facility] Comment on above: Performed By: #### A DIFF, FES, URIC, ANEU, BMP, FERR, GFR, CBC #### [place] [address] #### SPE, PTH, IFES #### [place] [address] MCHC 35.0 G/dL Normal 32.0-36.0 [facility] Comment on above: Performed By: #### A DIFF, FES, URIC, ANEU, BMP, FERR, GFR, CBC #### [place] [address] #### SPE, PTH, IFES #### [place] [address] MCV (RBC) [Entitic vol] 84.5 fL Normal 80.0-99.0 [facility] Comment on above: Performed By: #### A DIFF, FES, URIC, ANEU, BMP, FERR, GFR, CBC #### [place] [address] #### SPE, PTH, IFES #### [place] [address] Platelet 220 10 3/mcL Normal 150-450 [facility] Comment on above: Performed By: #### A DIFF, FES, URIC, ANEU, BMP, FERR, GFR, CBC #### [place] [address] #### SPE, PTH, IFES #### [place] [address] Platelet mean volume (Bld) [Entitic vol] 7.9 fL Normal 6.6-10.5 [facility] Comment on above: Performed By: #### A DIFF, FES, URIC, ANEU, BMP, FERR, GFR, CBC #### [place] [address] #### SPE, PTH, IFES #### [place] [address] RBC 5.17 10 6/mcL Normal 4.10-5.30 [facility] Comment on above: Performed By: #### A DIFF, FES, URIC, ANEU, BMP, FERR, GFR, CBC #### [place] [address] #### SPE, PTH, IFES #### [place] [address] WBC 8.4 10 3/mcL Normal 4.5-10.8 [facility] Comment on above: Performed By: #### A DIFF, FES, URIC, ANEU, BMP, FERR, GFR, CBC #### [address] [address] #### SPE, PTH, IFES #### [address] [address] Driss 09-07-2024 Ferritin [Mass/Vol] 199.0 ng/mL Normal 8.0-252.0 [facility] Comment on above: Performed By: #### A DIFF, FES, URIC, ANEU, BMP, FERR, GFR, CBC #### [address] [address] #### SPE, PTH, IFES #### [place] [address] FESon 09-07-2024 Iron [Mass/Vol] 98 ug/dL Normal 50-170 [facility] Comment on above: Performed By: #### A DIFF, FES, URIC, ANEU, BMP, FERR, GFR, CBC #### [place] [address] #### SPE, PTH, IFES #### [place] [address] Iron Sat 28 % Normal [facility] Comment on above: Performed By: #### A DIFF, FES, URIC, ANEU, BMP, FERR, GFR, CBC #### [address] [address] #### SPE, PTH, IFES #### [place] [address] TIBC 344 mcg/dL Normal 250-450 [facility] Comment on above: Performed By: #### A DIFF, FES, URIC, ANEU, BMP, FERR, GFR, CBC #### [place] [address] #### SPE, PTH, IFES #### [address] [address] PTHon 09-07-2024 PTH, Intact 48.2 pg/mL Normal 18.5-88.0 [facility] Comment on above: Performed By: #### A DIFF, FES, URIC, ANEU, BMP, FERR, GFR, CBC ####[place] [address]#### SPE, PTH, IFES ####[place] [address] RPCURon 09-07-2024 U Creatinine 142.4 mg/dL Normal [facility] Comment on above: Performed By: #### R PCUR ####[address] [address] U Protein 6 mg/dL Normal [facility] Comment on above: Performed By: #### R PCUR ####[place] [address] U Ratio Prot/Creat 0.0 ratio Normal [facility] Comment on above: Performed By: #### R PCUR ####[place] [id number] SPEon 09-07-2024 Total Protein 7.5 G/dL Normal 5.7-8.2 [facility] Comment on above: Performed By: #### A DIFF, FES, URIC, ANEU, BMP, FERR, GFR, CBC ####[place] [address]#### SPE, PTH, IFES ####[place] [address] URICon 09-07-2024 Uric Acid Lvl 4.6 mg/dL Normal 2.6-6.2 [facility] Comment on above: Performed By: #### A DIFF, FES, URIC, ANEU, BMP, FERR, GFR, CBC ####[place] [address]#### SPE, PTH, IFES ####[place] [address] CNPNon 08-08-2024 CNPN Telephone (GSTNOR) KATHYFREDI ([id number]) 1950 F Date Time Provider Department 08/08/24 SEFERINO CYRUS DEBBIE During your visit today, we recorded the following information about you: Gabriela Martinez 08/08/2024 4:49 PM Signed Indication: HIGH RISK SCREENING COLONOSCOPY Personal History Colon polyps? Yes Colon cancer? No (Rectal cancer yes) Crohn's Disease? No Ulcerative Colitis? No If any answers are a yes, pt is HIGH RISK SCREENING Family History Colon polyps? No Colon cancer? No If any answers are a yes, pt is HIGH RISK SCREENING Height: 5'2 Weight: 156 BMI: 28.5 (If BMI over 45, can't be scheduled in [place], If BMI is 40-45, must schedule an airway check prior to scheduling in [place]) Tracheostomy new or old No If yes, schedule at hospital Any surgery or radiation to the head or neck? No If can't move neck side to side AND up and down, schedule at hospital. Radiation to neck or head automatically gets scheduled at hospital Implanted defibrillator (ACD)? No If yes, schedule at hospital Have you ever been told you were difficult to intubate? No If yes, schedule at hospital Allergies: Latex, Adhesives, or Medication? Medications-Clindomyoc in-bad reaction; none to latex or adhesives If anaphylactic reaction to latex, schedule at hospital Recent stroke or cardiac event in the past 6 months? No (ex: heart attack or stent placement). If yes, schedule 6 months after cardiac event. Are you insulin dependent? Are your sugars in control? Ask what BS is running. No If controlled sugars needs scheduled in early AM, If uncontrolled sugars and are over 250 needs to be scheduled at hospital. Are you on any weight loss/diabetic medications (injectable or oral)? No If yes, please have pt contact prescribing physician about stopping med prior to procedure. On oxygen at home? No If yes, give to [employer]ES [employer]BER to evaluate. Chest pain or shortness of breath on exertion? No If yes, give to SALES TEAM MEMBER to evaluate. Any kidney/liver disease or on dialysis? No If cirrhosis pt., have SALES [employer]BER review chart History of COPD/Emphysema/Asthma/ or Sleep Apnea? No If uses an inhaler, have pt bring inhaler with them. On any blood thinners? No (Coumadin, Plavix, ASA, Xarelto, Brilinta, Eliquis, Pradaxa, Efficent etc.) If yes, have patient contact prescribing physician about stopping prior to procedure. Do you have a history of seizures? No If yes, when was last seizure? Gabriela Martinez 08/08/2024 4:48 PM Signed COLONOSCOPY BOWEL PREPARATION INSTRUCTIONS GOLYTELY/NULYTELY/TRIL YTE/COLYTE Your doctor has scheduled you for a colonoscopy. To have a successful colonoscopy, you must have a clean colon, that is empty. A clean colon allows your doctor to see the entire colon AND diagnose issues like polyps or cancer. For doctors, a clean colon is like driving on a lazaro day; a dirty colon like driving in a storm. It is very important that you follow these instructions exactly, or your colonoscopy might not be as effective, could be canceled, and you may need to do the bowel prep and the colonoscopy again. TRANSPORTATION REQUIREMENTS You are receiving IV sedation. For your safety, a responsible adult escort must accompany you to and from your procedure: Your adult escort MUST be present with you at check-in for your colonoscopy. Your adult escort MUST remain in the endoscopy area until you are discharged. Your adult escort MUST transport you home once you are discharged. You are NOT allowed to operate any form of transportation (i.e. drive a car, bicycle, etc.) or leave the Endoscopy Center ALONE. It is not safe to do so. If you cannot meet these requirements, your procedure will be canceled. MEDICATION REQUIREMENTS For your safety, certain medications will need to be stopped or adjusted before you can have your procedure: BLOOD THINNERS: If you take blood thinners, such as Coumadin (warfarin), Plavix (clopidogrel), Ticlid (ticlopidine hydrochloride), Agrylin (anagrelide), Xarelto (Rivaroxaban), Pradaxa (Dabigatran), Eliquis (Apixaban), or Effient (Prasugrel), contact the physician who is prescribing these medications at least 2 weeks prior to your procedure to discuss any necessary adjustments. DIABETES: If you take medications for diabetes, your dosage may need to be adjusted. If you are being treated for diabetes with insulin, diabetic pills, or other injectable medications do not take your REGULAR dose after midnight on the day of your procedure. If you are taking any other types of insulin such as Lantus, Humalog, NPH (long-acting insulin), or 70/30 insulin, take half your normal dose the day before your procedure. DIABETES/WEIGHT MANAGEMENT: If you take medications for weight-loss, your dosage may need to be adjusted Contact the doctor who prescribes this medication for (more content not included)... Normal [facility] XR SACROILIAC JOINTS 1 OR 2 VIEWSon 07-29-2024 XR SACROILIAC JOINTS 1 OR 2 VIEWS ORIGINAL EXAMINATION: THREE XRAY VIEWS OF THE SACRO-ILIAC JOINTS 07/27/2024 11:22 am COMPARISON: CT urogram on 02/23/2024 HISTORY: ORDERING SYSTEM PROVIDED HISTORY: Reason for Exam: right posterior hip pain FINDINGS: There is a transitional vertebral segment in the lumbosacral region. The right transverse process has a pseudoarticulation with the sacrum, with moderate degenerative findings. The sacroiliac joints are otherwise remarkable only for minimal degenerative spurring. There is no erosion. No pelvic fracture is present. IMPRESSION: 1. 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 2. Transitional vertebral segment in the lumbosacral region, with degenerative changes associated with pseudoarticulation of right transverse process with the sacrum. Interpreted by: Tapan Venegas MD Preliminary Report By: Tapan Venegas MD Electronically signed By Tapan Venegas MD Dictated Date: 07/29/2024 3:45:30 AM Prelim Date: 07/29/2024 3:49:14 AM Sign Date: 07/29/2024 3:49:14 AM Ordering Provider: JESSICA DURON [facility] XR HIP 2-3 VIEWS RIGHTon XR HIP 2-3 VIEWS RIGHT ORIGINAL EXAMINATION: 2 XRAY VIEWS OF THE RIGHT HIP 07/27/2024 11:22 am COMPARISON: None. HISTORY: ORDERING SYSTEM PROVIDED HISTORY: Reason for Exam: right hip pain FINDINGS: No acute fracture or dislocation is identified. Joint space loss and spurring seen in the right hip. Enthesophytes seen in the visualized right pelvis and at the right greater trochanter. Partial sacralization of L5 with the right pseudoarthrosis noted. There is no radiopaque foreign body. IMPRESSION: Degenerative changes. No visualized fracture. Partial sacralization of L5 with a right pseudoarthrosis Interpreted by: Joe Dahl MD Preliminary Report By: Joe Dahl MD Electronically signed By Joe Dahl MD Dictated Date: 07/28/2024 3:56:59 PM Prelim Date: 07/28/2024 3:57:49 PM Sign Date: 07/28/2024 3:57:49 PM Ordering Provider: JESSICA Ha [facility] LABORATORYOrdered By: SYSTEM SYSTEM on 03-01-2024 Free T3 [Mass/Vol] 2.68 pg/mL Normal 2.30 - 4. 00 pg/mL AO ADM SS Free T4 [Mass/Vol] 1.47 ng/dL High 0.76 - 1. 46 ng/dL AO ADM SS TSH Qn 0.84 m[IU]/L Normal 0.36 - 3.74 mcIU/mL AO ADM SS CT UROGRAMon 02-23-2024 CT UROGRAM ORIGINAL EXAMINATION: CT UROGRAM 02/23/2024 8:13 am TECHNIQUE: CT of the abdomen and pelvis was performed before and after the administration of intravenous contrast as per CT urogram protocol. Multiplanar reformatted images as well as MIP urogram images are provided for review. Dose modulation, iterative reconstruction, and/or weight based adjustment of the mA/kV was utilized to reduce the radiation dose to as low as reasonably achievable. COMPARISON: Renal ultrasound 12/19/2023. HISTORY: ORDERING SYSTEM PROVIDED HISTORY: Colorectal carcinoma 10 years ago status post colostomy and reversal, cholecystectomy, hysterectomy, bladder suspension. Reason for Exam: Bilateral hydronephrosis on renal US done at [facility], kidney stones. FINDINGS: Bibasilar dependent atelectasis and pleuroparenchymal scarring. Small hiatal hernia. Gall bladder: Surgically absent. Mild dilated common bile duct and left intrahepatic biliary ducts are likely sequelae of prior cholecystectomy. Stable tiny right hepatic lobe cyst (series 3, image 10). Liver is normal in size and contour. Spleen, pancreas and adrenal glands are unremarkable. Kidneys are symmetric in size and enhancement without hydronephrosis or urolithiasis. Subcentimeter right renal cyst. Small bilateral extrarenal pelves. Ureters and urinary bladder are well opacified with contrast. There is no evidence of urothelial thickening, filling defect or mass within the collecting system. Uterus is surgically absent. No adnexal mass. Postsurgical changes within the small bowel in mid lower abdomen. Small bowel and colon are normal in caliber. No bowel obstruction. Appendix is not seen. No definite intraperitoneal free air or focal fluid collection. No abdominal or pelvic lymphadenopathy. Nonaneurysmal atherosclerotic aorto-iliac arteries. No acute fracture or destructive osseous lesion. Multilevel moderate degenerative changes in the spine are most predominant at L2-3, L3-4. Mild degenerative retrolisthesis L2 on L3. Grade 1 degenerative anterolisthesis L4 on L5. Transitional lumbosacral vertebral body present. Moderate degenerative changes at the pubic symphysis. Small fat containing umbilical and bilateral inguinal hernias. IMPRESSION: No acute findings within abdomen or pelvis. No stone disease or hydronephrosis. No evidence of urothelial thickening, filling defect or mass within the collecting system. Other chronic and incidental findings as above. I have personally reviewed the images of this examination and agree with the resident's finding and interpretation. RECOMMENDATIONS: Subcentimeter right Bosniak I benign renal cyst. No follow-up imaging is recommended. JACR 2018 Jul; 264-273, Management of the Incidental Renal Mass on CT, [employer] 2020; 814-848, Bosniak Classification of Cystic Renal Masses, Version 2019. Interpreted by: Morales Law Preliminary Report By: Maryana Diaz Electronically signed By Morales Law Dictated Date: 02/23/2024 10:42:25 AM Prelim Date: 02/23/2024 2:34:53 PM Sign Date: 02/23/2024 2:34:53 PM Ordering Provider: HORACIO GOMEZ [facility] IFESon 01-12-2024 IFES Interpretation Immunofixation electrophoresis of serum shows the presence of only polyclonal immunoglobulins (IgG,A,M,[place] and Lambda), No monoclonal protein detected. Normal [facility] ([place]) Comment on above: Result Comment: Elec tronically Signed by: MORALES MCCLELLAND 01/12/2024 15:41 EDT Performed By: #### U REYNA, ADIFF, ANEU, FERR, GFR, CBC, VIDH, FES, BMP ####[id number] [place], [place] [address]#### IFES, SPE, PTH ####[place] [address] SPEon 01-12-2024 SPE Interpretation Normal serum protein electrophoresis pattern. No abnormality detected. Normal [facility] ([place]) Comment on above: Result Comment: Elec tronically Signed by: MORALES MCCLELLAND 01/12/2024 15:41 EDT Performed By: #### U REYNA, ADIFF, ANEU, FERR, GFR, CBC, VIDH, FES, BMP ####[place] [address]#### IFES, SPE, PTH ####[place] [address] Albumin 3.7 G/dL Normal 3.3-5.0 [facility] ([place]) Comment on above: Performed By: #### U REYNA, ADIFF, ANEU, FERR, GFR, CBC, VIDH, FES, BMP ####[place] [address]#### IFES, SPE, PTH ####[place] [address] Alpha 1 0.2 G/dL Normal 0.1-0.4 [facility] ([place]) Comment on above: Performed By: #### U REYNA, ADIFF, ANEU, FERR, GFR, CBC, VIDH, FES, BMP ####[place] [address]#### IFES, SPE, PTH ####[place] [address] Alpha 2 0.8 G/dL Normal 0.6-1.2 [facility] ([place]) Comment on above: Performed By: #### U REYNA, ADIFF, ANEU, FERR, GFR, CBC, VIDH, FES, BMP ####[place] [address]#### IFES, SPE, PTH ####[place] [address] Beta 1.0 G/dL Normal 0.6-1.3 [facility] ([place]) Comment on above: Performed By: #### U REYNA, ADIFF, ANEU, FERR, GFR, CBC, VIDH, FES, BMP ####[address] [address]#### IFES, SPE, PTH ####[place] [address] Gamma 1.3 G/dL Normal 0.7-1.6 [facility] ([place]) Comment on above: Performed By: #### U REYNA, ADIFF, ANEU, FERR, GFR, CBC, VIDH, FES, BMP ####[place] [address]#### IFES, SPE, PTH ####[place] [address] UPEon 01-12-2024 UPE Interpretation There was no appreciable protein detected by electrophoresis of concentrated urine. Normal [facility] ([place]) Comment on above: Result Comment: Elec tronically Signed by: MORALES MCCLELLAND 01/12/2024 15:43 EDT Performed By: #### U REYNA, ADIFF, ANEU, FERR, GFR, CBC, VIDH, FES, BMP #### [place] [address] #### IFES, SPE, PTH #### [place] [address] .Auto Diffon 01-10-2024 Basophil, Absolute 0.0 10 3/mcL Normal 0.0-0.2 [facility] ([place]) Comment on above: Performed By: #### U REYNA, ADIFF, ANEU, FERR, GFR, CBC, VIDH, FES, BMP #### [place] [address] #### IFES, SPE, PTH #### [place] [address] Basophils/100 WBC (Bld) 0.5 % Normal 0.0-2.5 [facility] ([place]) Comment on above: Performed By: #### U REYNA, ADIFF, ANEU, FERR, GFR, CBC, VIDH, FES, BMP #### [address] [address] #### IFES, SPE, PTH #### [address] [address] Eosinophil, Absolute 0.1 10 3/mcL Normal 0.0-0.4 [facility] ([place]) Comment on above: Performed By: #### U REYNA, ADIFF, ANEU, FERR, GFR, CBC, VIDH, FES, BMP #### [address] [address] #### IFES, SPE, PTH #### [address] [address] Eosinophils/100 WBC (Bld) 1.8 % Normal 0.0-7.0 [facility] ([place]) Comment on above: Performed By: #### U REYNA, ADIFF, ANEU, FERR, GFR, CBC, VIDH, FES, BMP #### [address] [address] #### IFES, SPE, PTH #### [address] [address] Lymphocyte, Absolute 1.8 10 3/mcL Normal 0.8-3.9 [facility] ([place]) Comment on above: Performed By: #### U REYNA, ADIFF, ANEU, FERR, GFR, CBC, VIDH, FES, BMP #### [address] [address] #### IFES, SPE, PTH #### [address] [address] Lymphocytes/100 WBC (Bld) 24.9 % Normal 10.0-50.0 [facility] ([place]) Comment on above: Performed By: #### U REYNA, ADIFF, ANEU, FERR, GFR, CBC, VIDH, FES, BMP #### [place] [address] #### IFES, SPE, PTH #### [address] [address] Monocyte, Absolute 0.6 10 3/mcL Normal 0.2-1.0 [facility] ([place]) Comment on above: Performed By: #### U REYNA, ADIFF, ANEU, FERR, GFR, CBC, VIDH, FES, BMP #### [address] [address] #### IFES, SPE, PTH #### [address] [address] Monocytes/100 WBC (Bld) 8.1 % Normal 1.7-13.0 [facility] ([place]) Comment on above: Performed By: #### U REYNA, ADIFF, ANEU, FERR, GFR, CBC, VIDH, FES, BMP #### [address] [address] #### IFES, SPE, PTH #### [address] [address] Neutrophils/100 WBC (Bld) 64.7 % Normal 37.0-80.0 [facility] ([place]) Comment on above: Performed By: #### U REYNA, ADIFF, ANEU, FERR, GFR, CBC, VIDH, FES, BMP #### [address] [address] #### IFES, SPE, PTH #### [address] [address] .GFRon 01-10-2024 GFR 70 ml/min/1.73sqm Normal [facility] ([place]) Comment on above: Result Comment: GFR Population mean for , Non- Americans Ages 20-29 = 116 mL/min/1.73 sq.m. Ages 30-39 = 107 mL/min/1.73 sq.m. Ages 40-49 = 99 mL/min/1.73 sq.m. Ages 50-59 = 93 mL/min/1.73 sq.m. Ages 60-69 = 85 mL/min/1.73 sq.m. Ages 70+ = 75 mL/min/1.73 sq.m. Chronic Kidney Disease: Less than 60 mL/min/1.73 square meters End Stage Renal Disease: Less than 15 mL/min/1.73 square meters Performed By: #### U REYNA, ADIFF, ANEU, FERR, GFR, CBC, VIDH, FES, BMP ####[place] [address]#### IFES, SPE, PTH ####[place] [address] GFR Non- 57 ml/min/1.73sqm Normal [facility] ([place]) Comment on above: Result Comment: GFR Population mean for , Non- Americans Ages 20-29 = 116 mL/min/1.73 sq.m. Ages 30-39 = 107 mL/min/1.73 sq.m. Ages 40-49 = 99 mL/min/1.73 sq.m. Ages 50-59 = 93 mL/min/1.73 sq.m. Ages 60-69 = 85 mL/min/1.73 sq.m. Ages 70+ = 75 mL/min/1.73 sq.m. Chronic Kidney Disease: Less than 60 mL/min/1.73 square meters End Stage Renal Disease: Less than 15 mL/min/1.73 square meters Performed By: #### U REYNA, ADIFF, ANEU, FERR, GFR, CBC, VIDH, FES, BMP ####[place] [address]#### IFES, SPE, PTH ####[place] [address] .NEUABSon 01-10-2024 Neutrophil, Absolute 4.6 10 3/mcL Normal 2.9-6.2 [facility] ([place]) Comment on above: Performed By: #### U REYNA, ADIFF, ANEU, FERR, GFR, CBC, VIDH, FES, BMP #### [address] [address] #### IFES, SPE, PTH #### [address] [address] BMPon 01-10-2024 BUN/Creatinine Ratio 19 ratio Normal 7-27 [facility] ([place]) Comment on above: Performed By: #### U REYNA, ADIFF, ANEU, FERR, GFR, CBC, VIDH, FES, BMP #### [place] [address] #### IFES, SPE, PTH #### [address] [address] Calcium [Mass/Vol] 8.8 mg/dL Normal 8.4-10.2 [facility] ([place]) Comment on above: Performed By: #### U REYNA, ADIFF, ANEU, FERR, GFR, CBC, VIDH, FES, BMP #### [place] [address] #### IFES, SPE, PTH #### [place] [address] Chloride [Moles/Vol] 105 mmol/L Normal 98-107 [facility] ([place]) Comment on above: Performed By: #### U REYNA, ADIFF, ANEU, FERR, GFR, CBC, VIDH, FES, BMP #### [place] [address] #### IFES, SPE, PTH #### [address] [address] CO2 [Moles/Vol] 26 mmol/L Normal 23-31 [facility] ([place]) Comment on above: Performed By: #### U REYNA, ADIFF, ANEU, FERR, GFR, CBC, VIDH, FES, BMP #### [place] [address] #### IFES, SPE, PTH #### [address] [address] Creatinine [Mass/Vol] 0.95 mg/dL Normal 0.55-1.02 [facility] ([place]) Comment on above: Performed By: #### U REYNA, ADIFF, ANEU, FERR, GFR, CBC, VIDH, FES, BMP #### [place] [address] #### IFES, SPE, PTH #### [place] [address] Electrolyte Balance 10.0 mEq/L Normal 4.0-15.0 [facility] ([place]) Comment on above: Performed By: #### U REYNA, ADIFF, ANEU, FERR, GFR, CBC, VIDH, FES, BMP #### [address] [address] #### IFES, SPE, PTH #### [address] [address] Glucose [Mass/Vol] 83 mg/dL Normal 83-110 [facility] ([place]) Comment on above: Performed By: #### U REYNA, ADIFF, ANEU, FERR, GFR, CBC, VIDH, FES, BMP #### [place] [address] #### IFES, SPE, PTH #### [address] [address] Potassium [Moles/Vol] 4.0 mmol/L Normal 3.5-5.1 [facility] ([place]) Comment on above: Performed By: #### U REYNA, ADIFF, ANEU, FERR, GFR, CBC, VIDH, FES, BMP #### [place] [address] #### IFES, SPE, PTH #### [address] [address] Sodium [Moles/Vol] 141 mmol/L Normal 136-145 [facility] ([place]) Comment on above: Performed By: #### U REYNA, ADIFF, ANEU, FERR, GFR, CBC, VIDH, FES, BMP #### [address] [address] #### IFES, SPE, PTH #### [address] [address] Urea nitrogen [Mass/Vol] 18 mg/dL Normal 7-18 [facility] ([place]) Comment on above: Performed By: #### U REYNA, ADIFF, ANEU, FERR, GFR, CBC, VIDH, FES, BMP #### [address] [address] #### IFES, SPE, PTH #### [place] [address] CBCon 01-10-2024 Erythrocyte distribution width (RBC) [Ratio] 13.9 % Normal 11.5-14.5 [facility] ([place]) Comment on above: Performed By: #### U REYNA, ADIFF, ANEU, FERR, GFR, CBC, VIDH, FES, BMP #### [place] [address] #### IFES, SPE, PTH #### [place] [address] Hematocrit (Bld) [Volume fraction] 43.0 % Normal 37.0-47.0 [facility] ([place]) Comment on above: Performed By: #### U REYNA, ADIFF, ANEU, FERR, GFR, CBC, VIDH, FES, BMP #### [place] [address] #### IFES, SPE, PTH #### [place] [address] Hgb 15.0 G/dL Normal 12.0-16.0 [facility] ([place]) Comment on above: Performed By: #### U REYNA, ADIFF, ANEU, FERR, GFR, CBC, VIDH, FES, BMP #### [place] [address] #### IFES, SPE, PTH #### [place] [address] MCH (RBC) [Entitic mass] 29.5 pg Normal 27.0-31.2 [facility] ([place]) Comment on above: Performed By: #### U REYNA, ADIFF, ANEU, FERR, GFR, CBC, VIDH, FES, BMP #### [place] [address] #### IFES, SPE, PTH #### [place] [address] MCHC 34.9 G/dL Normal 33.0-37.0 [facility] ([place]) Comment on above: Performed By: #### U REYNA, ADIFF, ANEU, FERR, GFR, CBC, VIDH, FES, BMP #### [place] [address] #### IFES, SPE, PTH #### [place] [address] MCV (RBC) [Entitic vol] 84.6 fL Normal 80.0-94.0 [facility] ([place]) Comment on above: Performed By: #### U REYNA, ADIFF, ANEU, FERR, GFR, CBC, VIDH, FES, BMP #### [place] [address] #### IFES, SPE, PTH #### [place] [address] Platelet 185 10 3/mcL Normal 130-400 [facility] ([place]) Comment on above: Performed By: #### U REYNA, ADIFF, ANEU, FERR, GFR, CBC, VIDH, FES, BMP #### [place] [address] #### IFES, SPE, PTH #### [place] [address] Platelet mean volume (Bld) [Entitic vol] 7.9 fL Normal 7.4-10.4 [facility] ([place] Comment on above: Performed By: #### U REYNA, ADIFF, ANEU, FERR, GFR, CBC, VIDH, FES, BMP #### [place] [address] #### IFES, SPE, PTH #### [place] [address] RBC 5.08 10 6/mcL Normal 4.20-5.40 [facility] ([place] Comment on above: Performed By: #### U REYNA, ADIFF, ANEU, FERR, GFR, CBC, VIDH, FES, BMP #### [place] [address] #### IFES, SPE, PTH #### [place] [address] WBC 7.0 10 3/mcL Normal 4.6-10.8 [facility] ([place] Comment on above: Performed By: #### U REYNA, ADIFF, ANEU, FERR, GFR, CBC, VIDH, FES, BMP #### [address] [address] #### IFES, SPE, PTH #### [place] [address] Driss 01-10-2024 Ferritin [Mass/Vol] 148.0 ng/mL Normal 8.0-252.0 [facility] ([place]) Comment on above: Performed By: #### U REYNA, ADIFF, ANEU, FERR, GFR, CBC, VIDH, FES, BMP #### [place] [address] #### IFES, SPE, PTH #### [place] [address] FESon 01-10-2024 Iron [Mass/Vol] 102 ug/dL Normal 50-170 [facility] ([place] Comment on above: Performed By: #### U REYNA, ADIFF, ANEU, FERR, GFR, CBC, VIDH, FES, BMP #### [place] [address] #### IFES, SPE, PTH #### [place] [address] Iron Sat 30 % Normal [facility] ([place] Comment on above: Performed By: #### U REYNA, ADIFF, ANEU, FERR, GFR, CBC, VIDH, FES, BMP #### [place] [address] #### IFES, SPE, PTH #### [place] [address] TIBC 341 mcg/dL Normal 250-450 [facility] ([place] Comment on above: Performed By: #### U REYNA, ADIFF, ANEU, FERR, GFR, CBC, VIDH, FES, BMP #### [place] [address] #### IFES, SPE, PTH #### [address] [address] PTHon 01-10-2024 PTH, Intact 52.7 pg/mL Normal 18.5-88.0 [facility] ([place] Comment on above: Performed By: #### U REYNA, ADIFF, ANEU, FERR, GFR, CBC, VIDH, FES, BMP ####[place] [address]#### IFES, SPE, PTH ####[place] [address] RPCURon 01-10-2024 U Creatinine 126.8 mg/dL High 28.0-117.0 [facility] ([place] Comment on above: Performed By: #### U REYNA, ADIFF, ANEU, FERR, GFR, CBC, VIDH, FES, BMP #### [place] [address] #### IFES, SPE, PTH #### [place] [address] U Protein 7 mg/dL Normal 0-11 [facility] ([place] Comment on above: Performed By: #### U REYNA, ADIFF, ANEU, FERR, GFR, CBC, VIDH, FES, BMP #### [place] [address] #### IFES, SPE, PTH #### [place] [address] U Ratio Prot/Creat 0.1 ratio Normal [facility] ([place]) Comment on above: Result Comment: resu lt calculated by rule GL_UR_PROT_NOTCALC_OLD (U Protein/U Creatinine) Performed By: #### U REYNA, ADIFF, ANEU, FERR, GFR, CBC, VIDH, FES, BMP #### [place] [address] #### IFES, SPE, PTH #### [place] [address] SPEon 01-10-2024 Total Protein 6.9 G/dL Normal 5.7-8.2 [facility] ([place] Comment on above: Result Comment: No te - New Reference Range in effect 19 Performed By: #### U REYNA, ADIFF, ANEU, FERR, GFR, CBC, VIDH, FES, BMP ####[place] [address]#### IFES, SPE, PTH ####[place] [address] URICon 01-10-2024 Uric Acid Lvl 4.1 mg/dL Normal 2.6-6.2 [facility] ([place] Comment on above: Performed By: #### U REYNA, ADIFF, ANEU, FERR, GFR, CBC, VIDH, FES, BMP #### [place] [address] #### IFES, SPE, PTH #### [place] [address] VIDHon 01-10-2024 Vit. D 25-Hydroxy 50.1 ng/mL Normal [facility] ([place] Comment on above: Result Comment: Inte rpretive Values Based on Total 25(OH) Vitamin D: Deficient <20 ng/mL Insufficient 20 - <30 ng/mL Sufficient 30-100 ng/mL Performed By: #### U REYNA, ADIFF, ANEU, FERR, GFR, CBC, VIDH, FES, BMP ####[place] [address]#### IFES, SPE, PTH ####[place] [address] UPEon 12-20-2023 UPE Interpretation There was no appreciable protein detected by electrophoresis of concentrated urine. Normal [facility] ([place] Comment on above: Result Comment: Elec tronically Signed by: MORALES MCCLELLAND 12/20/2023 16:11 EDT Performed By: #### U REYNA, ADIFF, ANEU, FERR, GFR, CBC, VIDH, FES, BMP #### [place] [address] #### IFES, SPE, PTH #### [place] [id number] [place] [address] US RENALon 12-20-2023 US RENAL ORIGINAL EXAMINATION: ULTRASOUND OF THE KIDNEYS 12/19/2023 9:32 am COMPARISON: None. HISTORY: ORDERING SYSTEM PROVIDED HISTORY: Reason for Exam: CKD STAGE 3A Images recorded and archived. FINDINGS: The right kidney measures in length and the left kidney measures in length. Right and left kidneys measure 10.6 x 5.1 x 5.1 cm, and 11.9 x 5.4 x 0.0 cm respectively. Both kidneys demonstrate mild to moderate hydronephrosis with dilated pelves. There scattered stones associated with the left kidney. No discrete solid mass is seen. There is increased renal cortical echotexture bilaterally. Distended bladder contains 300 mL of urine. Bladder wall is smooth contour. Postvoid residual volume is 47 mL. IMPRESSION: 1. Bilateral mild to moderate hydronephrosis. 2. Left-sided nephrolithiasis. 3. Increased renal cortical echotexture bilaterally suggests underlying medical renal disease. Interpreted by: Joe Nagy DO Preliminary Report By: Joe Nagy DO Electronically signed By Joe Nagy DO Dictated Date: 12/20/2023 8:43:08 AM Prelim Date: 12/20/2023 8:49:28 AM Sign Date: 12/20/2023 8:49:28 AM Ordering Provider: COLE Ha [facility] ([place]) LABORATORYOrdered By: Candy Woodson on 12-19-2023 Creatinine (U) [Mass/Vol] mg/dL Low 28.0 - 117.0 mg/dL AO ADM SS Protein (U) [Mass/Vol] mg/dL Normal 0 - 11 mg/dL AO Chemistry S U Ratio Prot/Creat Unable to Calculate Invalid Interpretation Code AO Chemistry S Comment on above: Result Comment: Unab le to calculate this test result accurately. Results used to calculate this test are outside the reportable range. RPCURon 12-19-2023 U Creatinine <13.0 Low 28.0-117.0 [facility] ([place] Comment on above: Performed By: #### U REYNA, ADIFF, ANEU, FERR, GFR, CBC, VIDH, FES, BMP #### [address] [address] #### IFES, SPE, PTH #### [address] [address] U Protein <6 Normal 0-11 [facility] ([place] Comment on above: Performed By: #### U REYNA, ADIFF, ANEU, FERR, GFR, CBC, VIDH, FES, BMP #### [place] [address] #### IFES, SPE, PTH #### [address] [address] U Ratio Prot/Creat Unable to Calculate Normal [facility] ([place] Comment on above: Result Comment: Unab le to calculate this test result accurately. Results used to calculate this test are outside the reportable range. Performed By: #### U REYNA, ADIFF, ANEU, FERR, GFR, CBC, VIDH, FES, BMP #### [place] [address] #### IFES, SPE, PTH #### [address] [address] BD BONE DENSITY DEXA AXIAL S [facility] 12-16-2023 BD BONE DENSITY DEXA AXIAL SKELETON ORIGINAL EXAMINATION: BONE DENSITOMETRY12/16/2023 10:47 am TECHNIQUE: Dual energy bone densitometry lumbar spine and left hip. COMPARISON: 12/11/2021 HISTORY: Reason for Exam: screening Osteoporosis screening. FINDINGS: T Score Left Femoral Neck: -2.5 Left Femoral Neck: 0.576 (g/cm2) T Score Left Hip: -1.9 Left Hip: 0.715 (g/cm2) T Score Lumbar Spine: 0.3 Lumbar Spine: 1.085 (g/cm2) BMD Change from previous Hip:-3.0% BMD Change from previous Lumbar Spine: +3.4%, significant FRAX score: Not calculated. The OF f/k/a NOF recommends that FDA-approved medical therapies be considered in post-menopausal women and men age >/= 50 years with a: * Hip or vertebral fracture, or * T-score of /= 20% for major osteoporotic fractures or * >/= 3% for hip fractures All treatment decisions require clinical judgement and consideration of individual patient factors, including patient preferences, comorbidities, previous drug use, risk factors not captured in the FRAX registered model (e.g., frailty, falls, vitamin D deficiency, increased bone turnover, interval significant decline in bone density) and possible under- or over-estimation of fracture risk by FRAX. IMPRESSION: Osteoporosis. Interpreted by: Michael Villegas MD Preliminary Report By: Michael Villegas MD Electronically signed By Michael Villegas MD Dictated Date: 12/16/2023 3:20:54 PM Prelim Date: 12/16/2023 3:22:56 PM Sign Date: 12/16/2023 3:22:56 PM Ordering Provider: JESSICA Ha [facility] ([place]) [place] MAMMOGRAM SCREENING BILAT ERAL W/TOMOon 12-16-2023 MA MAMMOGRAM SCREENING BILATERAL W/[place] ORIGINAL FROM: [address] [address] PROCEDURE FOR: FREDI KAPOOR [id number] [place] [id number] Home: PID#: [id number] Exam#: [id number] : 1950 Age: 73 TO: JESSICA DURON DO [address] [place] [address] Fax: NO FAX EXAMINATION: SCREENING DIGITAL BILATERAL MAMMOGRAM WITH TOMOSYNTHESIS, 12/16/2023 10:04 am TECHNIQUE: Screening mammography of the bilateral breasts was performed with tomosynthesis. 2D standard and 3D tomosynthesis combination imaging performed through both breasts in the MLO and CC projection. Computer aided detection was utilized in the interpretation of this exam. COMPARISON: Mammograms 12/14/2022, 12/11/2021, 11/24/2020, and 11/16/2019. HISTORY: Breast cancer screening. FINDINGS: BREAST DENSITY: Scattered fibroglandular tissue There is a biopsy marker clip in the left breast. There are benign appearing calcifications in both breasts. There are no significant masses or calcifications. IMPRESSION: No mammographic evidence of malignancy. Continued screening with annual mammograms is recommended. Michael Thomas risk calculations, generated with the history provided, report this patient's 10 year risk and lifetime risk for developing breast cancer at 1.4% and 1.4%, respectively. Based on this assessment tool, if the patient's calculated lifetime risk is below 20%, then the patient is considered at average risk for developing breast cancer. If the patient's calculated lifetime risk is at or above 20%, then the patient is considered high risk for developing breast cancer and may be a candidate for supplemental breast MRI screening in addition to annual mammographic screening per the [employer]. I have personally reviewed the images of this examination and agree with the resident's findings and interpretation. BIRADS: MAMMOGRAM BI-RADS: 2: Benign finding RECALL: 1 year screening RECALL TYPE: mammo LETTER SENT: Normal BI-RADS 1 and 2 Interpreted by: Aron Villasenor MD Preliminary Report By: Mimi Hernandez Electronically signed By Aron Villasenor MD Dictated Date: 12/16/2023 11:41:31 AM Prelim Date: 12/16/2023 12:53:07 PM Sign Date: 12/16/2023 12:53:07 PM Ordering Provider: JESSICA DURON Cremator: JHON JOYA RT(R)(M)(CT) AFTERNOON NANNY letter sent: Normal BI-RADS 1 and 2 Mammogram BI-RADS: 2 Benign Normal [facility] ([place]) .Auto Diffon 09-23-2023 Basophil, Absolute 0.0 10 3/mcL Normal 0.0-0.2 [facility] ([place]) Comment on above: Performed By: #### G FR, VIDH, ANEU, ADIFF, TSH, LIPID, CMP, CBC ####[address] [place], [place] [address] Basophils/100 WBC (Bld) 0.3 % Normal 0.0-2.5 [facility] ([place] Comment on above: Performed By: #### G FR, VIDH, ANEU, ADIFF, TSH, LIPID, CMP, CBC ####[address] [place], [place] [address] Eosinophil, Absolute 0.1 10 3/mcL Normal 0.0-0.4 [facility] ([place]) Comment on above: Performed By: #### G FR, VIDH, ANEU, ADIFF, TSH, LIPID, CMP, CBC ####[address] [place], [place] [address] Eosinophils/100 WBC (Bld) 1.4 % Normal 0.0-7.0 [facility] ([place] Comment on above: Performed By: #### G FR, VIDH, ANEU, ADIFF, TSH, LIPID, CMP, CBC ####[address] [place], [place] [address] Lymphocyte, Absolute 2.0 10 3/mcL Normal 0.8-3.9 [facility] ([place] Comment on above: Performed By: #### G FR, VIDH, ANEU, ADIFF, TSH, LIPID, CMP, CBC ####[address] [place], [place] [address] Lymphocytes/100 WBC (Bld) 22.1 % Normal 10.0-50.0 [facility] ([place] Comment on above: Performed By: #### G FR, VIDH, ANEU, ADIFF, TSH, LIPID, CMP, CBC ####[address] [place], [place] [address] Monocyte, Absolute 0.5 10 3/mcL Normal 0.2-1.0 [facility] ([place] Comment on above: Performed By: #### G FR, VIDH, ANEU, ADIFF, TSH, LIPID, CMP, CBC ####[address] [place], [place] [address] Monocytes/100 WBC (Bld) 5.1 % Normal 1.7-13.0 [facility] ([place] Comment on above: Performed By: #### G FR, VIDH, ANEU, ADIFF, TSH, LIPID, CMP, CBC ####[address] [place], [place] [address] Neutrophils/100 WBC (Bld) 71.1 % Normal 37.0-80.0 [facility] ([place] Comment on above: Performed By: #### G FR, VIDH, ANEU, ADIFF, TSH, LIPID, CMP, CBC ####[address] [place], [place] [address] .GFRon 09-23-2023 GFR Non- 50 ml/min/1.73sqm Normal [facility] ([place] Comment on above: Result Comment: GFR Population mean for , Non- Americans Ages 20-29 = 116 mL/min/1.73 sq.m. Ages 30-39 = 107 mL/min/1.73 sq.m. Ages 40-49 = 99 mL/min/1.73 sq.m. Ages 50-59 = 93 mL/min/1.73 sq.m. Ages 60-69 = 85 mL/min/1.73 sq.m. Ages 70+ = 75 mL/min/1.73 sq.m. Chronic Kidney Disease: Less than 60 mL/min/1.73 square meters End Stage Renal Disease: Less than 15 mL/min/1.73 square meters Performed By: #### G FR, VIDH, ANEU, ADIFF, TSH, LIPID, CMP, CBC ####[address] [place], [place] [address] GFR 61 ml/min/1.73sqm Normal [facility] ([place] Comment on above: Result Comment: GFR Population mean for , Non- Americans Ages 20-29 = 116 mL/min/1.73 sq.m. Ages 30-39 = 107 mL/min/1.73 sq.m. Ages 40-49 = 99 mL/min/1.73 sq.m. Ages 50-59 = 93 mL/min/1.73 sq.m. Ages 60-69 = 85 mL/min/1.73 sq.m. Ages 70+ = 75 mL/min/1.73 sq.m. Chronic Kidney Disease: Less than 60 mL/min/1.73 square meters End Stage Renal Disease: Less than 15 mL/min/1.73 square meters Performed By: #### G FR, VIDH, ANEU, ADIFF, TSH, LIPID, CMP, CBC ####[address] [place], [place] [address] .NEUABSon 09-23-2023 Neutrophil, Absolute 6.6 10 3/mcL High 2.9-6.2 [facility] ([place]) Comment on above: Performed By: #### G FR, VIDH, ANEU, ADIFF, TSH, LIPID, CMP, CBC ####[address] [place], [place] [address] CBCon 09-23-2023 Erythrocyte distribution width (RBC) [Ratio] 14.0 % Normal 11.5-14.5 [facility] ([place] Comment on above: Performed By: #### G FR, VIDH, ANEU, ADIFF, TSH, LIPID, CMP, CBC ####[address] [place], [place] [address] Hematocrit (Bld) [Volume fraction] 44.7 % Normal 37.0-47.0 [facility] ([place] Comment on above: Performed By: #### G FR, VIDH, ANEU, ADIFF, TSH, LIPID, CMP, CBC ####[address] [place], [place] [address] Hgb 15.7 G/dL Normal 12.0-16.0 [facility] ([place] Comment on above: Performed By: #### G FR, VIDH, ANEU, ADIFF, TSH, LIPID, CMP, CBC ####[address] [place], [place] [address] MCH (RBC) [Entitic mass] 29.6 pg Normal 27.0-31.2 [facility] ([place] Comment on above: Performed By: #### G FR, VIDH, ANEU, ADIFF, TSH, LIPID, CMP, CBC ####[address] [place], [place] [address] MCHC 35.2 G/dL Normal 33.0-37.0 [facility] ([place] Comment on above: Performed By: #### G FR, VIDH, ANEU, ADIFF, TSH, LIPID, CMP, CBC ####[address] [place], [place] [address] MCV (RBC) [Entitic vol] 84.0 fL Normal 80.0-94.0 [facility] ([place] Comment on above: Performed By: #### G FR, VIDH, ANEU, ADIFF, TSH, LIPID, CMP, CBC ####[address] [place], [place] [address] Platelet 221 10 3/mcL Normal 130-400 [facility] ([place] Comment on above: Performed By: #### G FR, VIDH, ANEU, ADIFF, TSH, LIPID, CMP, CBC ####[address] [place], [place] [address] Platelet mean volume (Bld) [Entitic vol] 7.8 fL Normal 7.4-10.4 [facility] ([place] Comment on above: Performed By: #### G FR, VIDH, ANEU, ADIFF, TSH, LIPID, CMP, CBC ####[address] [place], [place] [address] RBC 5.32 10 6/mcL Normal 4.20-5.40 [facility] ([place] Comment on above: Performed By: #### G FR, VIDH, ANEU, ADIFF, TSH, LIPID, CMP, CBC ####[address] [place], [place] [address] WBC 9.3 10 3/mcL Normal 4.6-10.8 [facility] ([place] Comment on above: Performed By: #### G FR, VIDH, ANEU, ADIFF, TSH, LIPID, CMP, CBC ####[address] [place], [place] [address] CMPon 09-23-2023 Albumin Level 4.2 G/dL Normal 3.4-4.8 [facility] ([place] Comment on above: Performed By: #### G FR, VIDH, ANEU, ADIFF, TSH, LIPID, CMP, CBC ####[address] [place], [place] [address] Albumin/Globulin [Mass ratio] 1.2 {ratio} Normal 1.1-2.5 [facility] ([place] Comment on above: Performed By: #### G FR, VIDH, ANEU, ADIFF, TSH, LIPID, CMP, CBC ####[address] [place], [place] [address] ALP [Catalytic activity/Vol] 110 U/L Normal 40-135 [facility] ([place] Comment on above: Performed By: #### G FR, VIDH, ANEU, ADIFF, TSH, LIPID, CMP, CBC ####[address] [place], [place] [address] ALT [Catalytic activity/Vol] 31 U/L Normal 14-59 [facility] ([place] Comment on above: Performed By: #### G FR, VIDH, ANEU, ADIFF, TSH, LIPID, CMP, CBC ####[address] [place], [place] [address] AST [Catalytic activity/Vol] 26 U/L Normal 10-40 [facility] ([place] Comment on above: Performed By: #### G FR, VIDH, ANEU, ADIFF, TSH, LIPID, CMP, CBC ####[address] [place], [place] [address] Bili Total 0.5 mg/dL Normal 0.2-1.0 [facility] ([place] Comment on above: Result Comment: Use of this assay is not recommended for patients undergoing treatment with eltrombopag due to the potential for falsely elevated results. Performed By: #### G FR, VIDH, ANEU, ADIFF, TSH, LIPID, CMP, CBC ####[address] [place], [place] [address] BUN/Creatinine Ratio 21 ratio Normal 7-27 [facility] ([place] Comment on above: Performed By: #### G FR, VIDH, ANEU, ADIFF, TSH, LIPID, CMP, CBC ####[address] [place], [place] [address] Calcium [Mass/Vol] 8.8 mg/dL Normal 8.4-10.2 [facility] ([place]) Comment on above: Performed By: #### G FR, VIDH, ANEU, ADIFF, TSH, LIPID, CMP, CBC ####[address] [place], [place] [address] Chloride [Moles/Vol] 105 mmol/L Normal 98-107 [facility] ([place] Comment on above: Performed By: #### G FR, VIDH, ANEU, ADIFF, TSH, LIPID, CMP, CBC ####[address] [place], [place] [address] CO2 [Moles/Vol] 21 mmol/L Low 23-31 [facility] ([place] Comment on above: Performed By: #### G FR, VIDH, ANEU, ADIFF, TSH, LIPID, CMP, CBC ####[address] [place], [place] [address] Creatinine [Mass/Vol] 1.07 mg/dL High 0.55-1.02 [facility] ([place]) Comment on above: Performed By: #### G FR, VIDH, ANEU, ADIFF, TSH, LIPID, CMP, CBC ####[address] [place], [place] [address] Electrolyte Balance 16.0 mEq/L High 4.0-15.0 [facility] ([place]) Comment on above: Performed By: #### G FR, VIDH, ANEU, ADIFF, TSH, LIPID, CMP, CBC ####[address] [place], [place] [address] Globulin 3.6 G/dL Normal [facility] ([place] Comment on above: Performed By: #### G FR, VIDH, ANEU, ADIFF, TSH, LIPID, CMP, CBC ####[address] [place], [place] [address] Glucose [Mass/Vol] 117 mg/dL High 83-110 [facility] ([place] Comment on above: Performed By: #### G FR, VIDH, ANEU, ADIFF, TSH, LIPID, CMP, CBC ####[address] [place], [place] [address] Potassium [Moles/Vol] 4.2 mmol/L Normal 3.5-5.1 [facility] ([place] Comment on above: Performed By: #### G FR, VIDH, ANEU, ADIFF, TSH, LIPID, CMP, CBC ####[address] [place], [place] [address] Sodium [Moles/Vol] 142 mmol/L Normal 136-145 [facility] ([place] Comment on above: Performed By: #### G FR, VIDH, ANEU, ADIFF, TSH, LIPID, CMP, CBC ####[address] [place], [place] [address] Total Protein 7.8 G/dL Normal 6.4-8.2 [facility] ([place] Comment on above: Performed By: #### G FR, VIDH, ANEU, ADIFF, TSH, LIPID, CMP, CBC ###[address] [place], [place] [address] Urea nitrogen [Mass/Vol] 23 mg/dL High 7-18 [facility] ([place] Comment on above: Performed By: #### G FR, VIDH, ANEU, ADIFF, TSH, LIPID, CMP, CBC ####[address] [place], [place] [address] LABORATORYOrdered By: SYSTEM SYSTEM on 09-23-2023 25-hydroxyvitamin D3 [Mass/Vol] 42.9 ng/mL Invalid Interpretation Code AO ADM SS Comment on above: Interpretive Data: I nterpretive Values Based on Total 25(OH) Vitamin D: Deficient <20 ng/mL Insufficient 20 - <30 ng/mL Sufficient 30-100 ng/mL Albumin BCP dye [Mass/Vol] 4.2 G/dL Normal 3.4 - 4.8 G/dL AO ADM SS Albumin/Globulin [Mass ratio] 1.2 {ratio} Normal 1.1 - 2.5 ratio AO ADM SS ALP [Catalytic activity/Vol] 110 U/L Normal 40 - 135 U/L AO ADM SS ALT With P-5'-P [Catalytic activity/Vol] 31 U/L Normal 14 - 59 U/L AO ADM SS AST With P-5'-P [Catalytic activity/Vol] 26 U/L Normal 10 - 40 U/L AO ADM SS Basophil, Absolute 0.0 103/mcL Normal 0.0 - 0.2 10^3/mcL AO Workflow SS Basophils/100 WBC (Bld) 0.3 % Normal 0.0 - 2.5 % AO Workflow SS Bilirubin [Mass/Vol] 0.5 mg/dL Normal 0.2 - 1 .0 mg/dL AO ADM SS Comment on above: Interpretive Data: U se of this assay is not recommended for patients undergoing treatment with eltrombopag due to the potential for falsely elevated results. Calcium [Mass/Vol] 8.8 mg/dL Normal 8.4 - 10. 2 mg/dL AO ADM SS Chloride [Moles/Vol] 105 mmol/L Normal 98 - 10 7 mmol/L AO ADM SS CO2 [Moles/Vol] 21 mmol/L Low 23 - 31 mmol/L AO ADM SS Creatinine [Mass/Vol] 1.07 mg/dL High 0.55 - 1.02 mg/dL AO ADM SS Electrolyte Balance 16.0 mEq/L High 4.0 - 15 .0 mEq/L AO ADM SS Eosinophil, Absolute 0.1 103/mcL Normal 0.0 - 0 .4 10^3/mcL AO Workflow SS Eosinophils/100 WBC (Bld) 1.4 % Normal 0.0 - 7.0 % AO Workflow SS Erythrocyte distribution width (RBC) [Ratio] 14.0 % Normal 11.5 - 14.5 % AO Workflow SS GFR/1.73 sq M.predicted among blacks MDRD (S/P/Bld) [Vol rate/Area] 61 ml/min/1.73sqm Invalid Interpretation Code AO Chemistry S Comment on above: Interpretive Data: GFR Population mean for , Non- Americans Ages 20-29 = 116 mL/min/1.73 sq.m. Ages 30-39 = 107 mL/min/1.73 sq.m. Ages 40-49 = 99 mL/min/1.73 sq.m. Ages 50-59 = 93 mL/min/1.73 sq.m. Ages 60-69 = 85 mL/min/1.73 sq.m. Ages 70+ = 75 mL/min/1.73 sq.m. Chronic Kidney Disease: Less than 60 mL/min/1.73 square meters End Stage Renal Disease: Less than 15 mL/min/1.73 square meters GFR/1.73 sq M.predicted among non-blacks MDRD (S/P/Bld) [Vol rate/Area] 50 ml/min/1.73sqm Invalid Interpretation Code AO Chemistry S Comment on above: Interpretive Data: GFR Population mean for , Non- Americans Ages 20-29 = 116 mL/min/1.73 sq.m. Ages 30-39 = 107 mL/min/1.73 sq.m. Ages 40-49 = 99 mL/min/1.73 sq.m. Ages 50-59 = 93 mL/min/1.73 sq.m. Ages 60-69 = 85 mL/min/1.73 sq.m. Ages 70+ = 75 mL/min/1.73 sq.m. Chronic Kidney Disease: Less than 60 mL/min/1.73 square meters End Stage Renal Disease: Less than 15 mL/min/1.73 square meters Globulin 3.6 G/dL Invalid Interpretation Code AO ADM SS Glucose [Mass/Vol] 117 mg/dL High 83 - 110 mg/dL AO ADM SS Hematocrit (Bld) [Volume fraction] 44.7 % Normal 37.0 - 47.0 % AO Workflow SS Hemoglobin (Bld) [Mass/Vol] 15.7 G/dL Normal 12.0 - 16.0 G/dL AO Workflow SS Lymphocyte, Absolute 2.0 103/mcL Normal 0.8 - 3 .9 10^3/mcL AO Workflow SS Lymphocytes/100 WBC (Bld) 22.1 % Normal 10.0 - 50.0 % AO Workflow SS MCH (RBC) [Entitic mass] 29.6 pg Normal 27.0 - 31.2 pg AO Workflow SS MCHC 35.2 G/dL Normal 33.0 - 37.0 G/dL AO Workflow SS MCV (RBC) [Entitic vol] 84.0 fL Normal 80.0 - 94.0 fL AO Workflow SS Monocyte, Absolute 0.5 103/mcL Normal 0.2 - 1.0 10^3/mcL AO Workflow SS Monocytes/100 WBC (Bld) 5.1 % Normal 1.7 - 13.0 % AO Workflow SS Neutrophil, Absolute 6.6 103/mcL High 2.9 - 6 .2 10^3/mcL AO Workflow SS Neutrophils/100 WBC (Bld) 71.1 % Normal 37.0 - 80.0 % AO Workflow SS Platelet mean volume (Bld) [Entitic vol] 7.8 fL Normal 7.4 - 10.4 fL AO Workflow SS Platelets (Bld) [#/Vol] 221 103/mcL Normal 130 - 400 10^3/mcL AO Workflow SS Potassium [Moles/Vol] 4.2 mmol/L Normal 3.5 - 5.1 mmol/L AO ADM SS Protein [Mass/Vol] 7.8 G/dL Normal 6.4 - 8.2 G/dL AO ADM SS RBC (Bld) [#/Vol] 5.32 106/mcL Normal 4.20 - 5.4 0 10^6/mcL AO Workflow SS Sodium [Moles/Vol] 142 mmol/L Normal 136 - 145 mmol/L AO ADM SS TSH Qn 2.01 m[IU]/L Normal 0.36 - 3.74 mcIU/mL AO ADM SS Urea nitrogen [Mass/Vol] 23 mg/dL High 7 - 18 mg/dL AO ADM SS Urea nitrogen/Creatinine [Mass ratio] 21 ratio Normal 7 - 27 ratio AO ADM SS WBC (Bld) [#/Vol] 9.3 103/mcL Normal 4.6 - 10.8 10^3/mcL AO Workflow SS LABORATORYOrdered By: Manuel Islas on 09-23-2023 Cholesterol [Mass/Vol] 212 mg/dL High 0 - 200 mg/dL AO ADM SS Comment on above: Interpretive Data: C holesterol Reference Interval: Less than 200 Desirable 200-239 Borderline high risk 240 and above High risk Cholesterol in HDL [Mass/Vol] 56 mg/dL Normal 40 - 60 mg/dL AO ADM SS Cholesterol in LDL [Mass/Vol] 131 mg/dL High 0 - 130 mg/dL AO ADM SS Triglyceride [Mass/Vol] 127 mg/dL Normal 0 - 150 mg/dL AO ADM SS Comment on above: Interpretive Data: T riglyceride Reference Interval: Less than 150 Normal 150-199 Borderline high risk 200-499 High risk 500 or higher Very high risk LIPIDon 09-23-2023 Cholesterol [Mass/Vol] 212 mg/dL High 0-200 [facility] ([place]) Comment on above: Result Comment: Chol esterol Reference Interval: Less than 200 Desirable 200-239 Borderline high risk 240 and above High risk Performed By: #### G FR, VIDH, ANEU, ADIFF, TSH, LIPID, CMP, CBC ####[address] [place], [place] [address] Cholesterol in HDL [Mass/Vol] 56 mg/dL Normal 40-60 [facility] ([place]) Comment on above: Performed By: #### G FR, VIDH, ANEU, ADIFF, TSH, LIPID, CMP, CBC ####[address] [place], [place] [address] Cholesterol in LDL [Mass/Vol] 131 mg/dL High 0-130 [facility] ([place]) Comment on above: Performed By: #### G FR, VIDH, ANEU, ADIFF, TSH, LIPID, CMP, CBC ####[address] [place], [place] [address] Triglyceride [Mass/Vol] 127 mg/dL Normal 0-150 [facility] ([place]) Comment on above: Result Comment: Trig lyceride Reference Interval: Less than 150 Normal 150-199 Borderline high risk 200-499 High risk 500 or higher Very high risk Performed By: #### G FR, VIDH, ANEU, ADIFF, TSH, LIPID, CMP, CBC ####Dimitri [address] [place], [place] [address] NM MYOCARDIAL SPECT STRESS/R ESTon 09-23-2023 NM MYOCARDIAL SPECT STRESS/REST ORIGINAL NM MYOCARDIAL SPECT STRESS/REST CLINICAL STATEMENT:New onset hypertension, chest pain TECHNIQUE: Stress Protocol:Shaheen Time Exercised:6:15minutes Predicted Max HR:145 Max HR Achieved:146 Percent Max HR:100 Peak Systolic BP:160 Rate-Pressure product: 20,600 Radiopharmaceutical(re st): Tc-99m Sestamibi IV Dose:31.5 mCi Radiopharmaceutical(st ress): Tc-99m Sestamibi IV Dose:10.4 mCi SPECT acquisition:SPECT reconstruction and reorientation into short axis, vertical and horizontal long axis planes Quantitative LVEF assessment COMPARISON:None REPORT:Rotating planar images demonstrate significant tracer uptake in rest images. SPECT perfusion images demonstrate homogeneous tracer uptake in stress images. Rest images do not show any significant perfusion defect but presence of extracardiac activity limits the study quality in rest images. Tid ratio within normal limits. Gated SPECT images demonstrate normal wall motion and wall thickening. End-diastolic volume is 77ml. Ejection fraction is 63%. This could be underestimated due to the extracardiac activity. IMPRESSION: 1. No evidence of ischemia are prior infarction 2. Normal systolic function with ejection fraction of 63%. 3. No prior studies for comparison. Interpreted By: Neli Conley MD Preliminary Report By: Neli Conley MD Electronically Signed By: Neli Conley MD Dictated Date: 09/23/2023 1:29:45 PM Prelim Date: 09/23/2023 1:29:45 PM Sign Date: 09/23/2023 1:32:39 PM Ordering Provider:Jessica Ha [facility] ([place]) TSHon 09-23-2023 TSH Qn 2.01 m[IU]/L Normal 0.36-3.74 [facility]) Comment on above: Performed By: #### G FR, VIDH, ANEU, ADIFF, TSH, LIPID, CMP, CBC ####[address] [place], [place] [address] VIDHon 09-23-2023 Vit. D 25-Hydroxy 42.9 ng/mL Normal [facility] ([place]) Comment on above: Result Comment: Inte rpretive Values Based on Total 25(OH) Vitamin D: Deficient <20 ng/mL Insufficient 20 - <30 ng/mL Sufficient 30-100 ng/mL Performed By: #### G FR, VIDH, ANEU, ADIFF, TSH, LIPID, CMP, CBC ####[address]ri [address] [place], [place] [address] FT3on 09-01-2023 Free T3 [Mass/Vol] 2.66 pg/mL Normal 2.30-4.00 [facility] ([place]) Comment on above: Performed By: #### L IPID, FT3, FT4, TSH, VIDH ####[address] [place], [place] [address] FT4on 09-01-2023 Free T4 [Mass/Vol] 1.18 ng/dL Normal 0.76-1.46 [facility] ([place]) Comment on above: Performed By: #### L IPID, FT3, FT4, TSH, VIDH ####[address] [place], [place] [address] LABORATORYOrdered By: SYSTEM SYSTEM on 09-01-2023 25-hydroxyvitamin D3 [Mass/Vol] 36.7 ng/mL Invalid Interpretation Code AO ADM SS Comment on above: Interpretive Data: I nterpretive Values Based on Total 25(OH) Vitamin D: Deficient <20 ng/mL Insufficient 20 - <30 ng/mL Sufficient 30-100 ng/mL Free T3 [Mass/Vol] 2.66 pg/mL Normal 2.30 - 4. 00 pg/mL AO ADM SS Free T4 [Mass/Vol] 1.18 ng/dL Normal 0.76 - 1. 46 ng/dL AO ADM SS TSH Qn 1.42 m[IU]/L Normal 0.36 - 3.74 mcIU/mL AO ADM SS LABORATORYOrdered By: Manuel Islas on 09-01-2023 Cholesterol [Mass/Vol] 222 mg/dL High 0 - 200 mg/dL AO ADM SS Comment on above: Interpretive Data: C holesterol Reference Interval: Less than 200 Desirable 200-239 Borderline high risk 240 and above High risk Cholesterol in HDL [Mass/Vol] 50 mg/dL Normal 40 - 60 mg/dL AO ADM SS Cholesterol in LDL [Mass/Vol] 146 mg/dL High 0 - 130 mg/dL AO ADM SS Triglyceride [Mass/Vol] 128 mg/dL Normal 0 - 150 mg/dL AO ADM SS Comment on above: Interpretive Data: T riglyceride Reference Interval: Less than 150 Normal 150-199 Borderline high risk 200-499 High risk 500 or higher Very high risk LIPIDon 09-01-2023 Cholesterol [Mass/Vol] 222 mg/dL High 0-200 [facility] ([place]) Comment on above: Result Comment: Chol esterol Reference Interval: Less than 200 Desirable 200-239 Borderline high risk 240 and above High risk Performed By: #### L IPID, FT3, FT4, TSH, VIDH ####[address]ri [address] [place], [place] [address] Cholesterol in HDL [Mass/Vol] 50 mg/dL Normal 40-60 [facility] ([place]) Comment on above: Performed By: #### L IPID, FT3, FT4, TSH, VIDH ####[address] [place], [place] [address] Cholesterol in LDL [Mass/Vol] 146 mg/dL High 0-130 [facility] ([place]) Comment on above: Performed By: #### L IPID, FT3, FT4, TSH, VIDH ####[address] [place], [place] [address] Triglyceride [Mass/Vol] 128 mg/dL Normal 0-150 [facility] ([place]) Comment on above: Result Comment: Trig lyceride Reference Interval: Less than 150 Normal 150-199 Borderline high risk 200-499 High risk 500 or higher Very high risk Performed By: #### L IPID, FT3, FT4, TSH, VIDH ####[address] [place], [place] [address] TSHon 09-01-2023 TSH Qn 1.42 m[IU]/L Normal 0.36-3.74 [facility] ([place]) Comment on above: Performed By: #### L IPID, FT3, FT4, TSH, VIDH ####[address] [place], [place] [address] VIDHon 09-01-2023 Vit. D 25-Hydroxy 36.7 ng/mL Normal [facility] ([place]) Comment on above: Result Comment: Inte rpretive Values Based on Total 25(OH) Vitamin D: Deficient <20 ng/mL Insufficient 20 - <30 ng/mL Sufficient 30-100 ng/mL Performed By: #### L IPID, FT3, FT4, TSH, VIDH ####[address] [address] .Auto Diffon 08-30-2023 Basophil, Absolute 0.0 10 3/mcL Normal 0.0-0.2 [facility] ([place]) Comment on above: Performed By: #### U REYNA, ADIFF, ANEU, FERR, GFR, CBC, VIDH, FES, BMP #### [address] [address] #### IFES, SPE, PTH #### [address] [address] Basophils/100 WBC (Bld) 0.3 % Normal 0.0-2.5 [facility] ([place]) Comment on above: Performed By: #### U REYNA, ADIFF, ANEU, FERR, GFR, CBC, VIDH, FES, BMP #### [address] [place] [address] #### IFES, SPE, PTH #### [address] [address] Eosinophil, Absolute 0.1 10 3/mcL Normal 0.0-0.4 [facility] ([place]) Comment on above: Performed By: #### U REYNA, ADIFF, ANEU, FERR, GFR, CBC, VIDH, FES, BMP #### [place] [address] #### IFES, SPE, PTH #### [address] [address] Eosinophils/100 WBC (Bld) 1.6 % Normal 0.0-7.0 [facility] ([place]) Comment on above: Performed By: #### U REYNA, ADIFF, ANEU, FERR, GFR, CBC, VIDH, FES, BMP #### [place] [address] #### IFES, SPE, PTH #### [address] [address] Lymphocyte, Absolute 1.3 10 3/mcL Normal 0.8-3.9 [facility] ([place]) Comment on above: Performed By: #### U REYNA, ADIFF, ANEU, FERR, GFR, CBC, VIDH, FES, BMP #### [place] [address] #### IFES, SPE, PTH #### [address] [address] Lymphocytes/100 WBC (Bld) 18.6 % Normal 10.0-50.0 [facility] ([place]) Comment on above: Performed By: #### U REYNA, ADIFF, ANEU, FERR, GFR, CBC, VIDH, FES, BMP #### [place] [address] #### IFES, SPE, PTH #### [address] [address] Monocyte, Absolute 0.4 10 3/mcL Normal 0.2-1.0 [facility] ([place]) Comment on above: Performed By: #### U REYNA, ADIFF, ANEU, FERR, GFR, CBC, VIDH, FES, BMP #### [address] [address] #### IFES, SPE, PTH #### [address] [address] Monocytes/100 WBC (Bld) 5.3 % Normal 1.7-13.0 [facility] ([place]) Comment on above: Performed By: #### U REYNA, ADIFF, ANEU, FERR, GFR, CBC, VIDH, FES, BMP #### [address] [address] #### IFES, SPE, PTH #### [address] [address] Neutrophils/100 WBC (Bld) 74.2 % Normal 37.0-80.0 [facility] ([place] Comment on above: Performed By: #### U REYNA, ADIFF, ANEU, FERR, GFR, CBC, VIDH, FES, BMP #### [address] [address] #### IFES, SPE, PTH #### [address] [address] .GFRon 08-30-2023 GFR 67 ml/min/1.73sqm Normal [facility] ([place]) Comment on above: Result Comment: GFR Population mean for , Non- Americans Ages 20-29 = 116 mL/min/1.73 sq.m. Ages 30-39 = 107 mL/min/1.73 sq.m. Ages 40-49 = 99 mL/min/1.73 sq.m. Ages 50-59 = 93 mL/min/1.73 sq.m. Ages 60-69 = 85 mL/min/1.73 sq.m. Ages 70+ = 75 mL/min/1.73 sq.m. Chronic Kidney Disease: Less than 60 mL/min/1.73 square meters End Stage Renal Disease: Less than 15 mL/min/1.73 square meters Performed By: #### U REYNA, ADIFF, ANEU, FERR, GFR, CBC, VIDH, FES, BMP #### [address] [address] #### IFES, SPE, PTH #### [address] [address] GFR Non- 55 ml/min/1.73sqm Normal [facility] ([place] Comment on above: Result Comment: GFR Population mean for , Non- Americans Ages 20-29 = 116 mL/min/1.73 sq.m. Ages 30-39 = 107 mL/min/1.73 sq.m. Ages 40-49 = 99 mL/min/1.73 sq.m. Ages 50-59 = 93 mL/min/1.73 sq.m. Ages 60-69 = 85 mL/min/1.73 sq.m. Ages 70+ = 75 mL/min/1.73 sq.m. Chronic Kidney Disease: Less than 60 mL/min/1.73 square meters End Stage Renal Disease: Less than 15 mL/min/1.73 square meters Performed By: #### U REYNA, ADIFF, ANEU, FERR, GFR, CBC, VIDH, FES, BMP #### [place] [address] #### IFES, SPE, PTH #### [address] [address] .MDWon 08-30-2023 Monocyte Distribution Width 17.68 Normal 0.00-20.00 [facility] ([place] Comment on above: Result Comment: For ED adult patients suspected of sepsis, MDW<=20.0 does not rule out sepsis or risk of sepsis Performed By: #### U REYNA, ADIFF, ANEU, FERR, GFR, CBC, VIDH, FES, BMP #### [address] [address] #### IFES, SPE, PTH #### [address] [address] .NEUABSon 08-30-2023 Neutrophil, Absolute 5.2 10 3/mcL Normal 2.9-6.2 [facility] ([place]) Comment on above: Performed By: #### U REYNA, ADIFF, ANEU, FERR, GFR, CBC, VIDH, FES, BMP #### [address] [address] #### IFES, SPE, PTH #### [address] [address] BMPon 08-30-2023 BUN/Creatinine Ratio 26 ratio Normal 7-27 [facility] ([place]) Comment on above: Performed By: #### U REYNA, ADIFF, ANEU, FERR, GFR, CBC, VIDH, FES, BMP #### [place] [address] #### IFES, SPE, PTH #### [address] [address] Calcium [Mass/Vol] 8.9 mg/dL Normal 8.4-10.2 [facility] ([place]) Comment on above: Performed By: #### U REYNA, ADIFF, ANEU, FERR, GFR, CBC, VIDH, FES, BMP #### [place] [address] #### IFES, SPE, PTH #### [address] [address] Chloride [Moles/Vol] 103 mmol/L Normal 98-107 [facility] ([place]) Comment on above: Performed By: #### U REYNA, ADIFF, ANEU, FERR, GFR, CBC, VIDH, FES, BMP #### [place] [address] #### IFES, SPE, PTH #### [address] [address] CO2 [Moles/Vol] 27 mmol/L Normal 23-31 [facility] ([place] Comment on above: Performed By: #### U REYNA, ADIFF, ANEU, FERR, GFR, CBC, VIDH, FES, BMP #### [place] [address] #### IFES, SPE, PTH #### [place] [address] Creatinine [Mass/Vol] 0.98 mg/dL Normal 0.55-1.02 [facility] ([place]) Comment on above: Performed By: #### U REYNA, ADIFF, ANEU, FERR, GFR, CBC, VIDH, FES, BMP #### [address] [address] #### IFES, SPE, PTH #### [address] [address] Electrolyte Balance 11.0 mEq/L Normal 4.0-15.0 [facility] ([place]) Comment on above: Performed By: #### U REYNA, ADIFF, ANEU, FERR, GFR, CBC, VIDH, FES, BMP #### [place] [address] #### IFES, SPE, PTH #### [place] [address] Glucose [Mass/Vol] 110 mg/dL Normal 83-110 [facility] ([place] Comment on above: Performed By: #### U REYNA, ADIFF, ANEU, FERR, GFR, CBC, VIDH, FES, BMP #### [place] [address] #### IFES, SPE, PTH #### [place] [address] Potassium [Moles/Vol] 3.7 mmol/L Normal 3.5-5.1 [facility] ([place]) Comment on above: Performed By: #### U REYNA, ADIFF, ANEU, FERR, GFR, CBC, VIDH, FES, BMP #### [place] [address] #### IFES, SPE, PTH #### [place] [id number] Sodium [Moles/Vol] 141 mmol/L Normal 136-145 [facility] ([place]) Comment on above: Performed By: #### U REYNA, ADIFF, ANEU, FERR, GFR, CBC, VIDH, FES, BMP #### [place] [address] #### IFES, SPE, PTH #### [address] [address] Urea nitrogen [Mass/Vol] 25 mg/dL High 7-18 [facility] ([place] Comment on above: Performed By: #### U REYNA, ADIFF, ANEU, FERR, GFR, CBC, VIDH, FES, BMP #### [place] [address] #### IFES, SPE, PTH #### [place] [address] CBCon 08-30-2023 Erythrocyte distribution width (RBC) [Ratio] 13.7 % Normal 11.5-14.5 [facility] ([place] Comment on above: Performed By: #### U REYNA, ADIFF, ANEU, FERR, GFR, CBC, VIDH, FES, BMP #### [place] [address] #### IFES, SPE, PTH #### [place] [address] Hematocrit (Bld) [Volume fraction] 42.9 % Normal 37.0-47.0 [facility] ([place] Comment on above: Performed By: #### U REYNA, ADIFF, ANEU, FERR, GFR, CBC, VIDH, FES, BMP #### [place] [address] #### IFES, SPE, PTH #### [place] [address] Hgb 15.3 G/dL Normal 12.0-16.0 [facility] ([place] Comment on above: Performed By: #### U REYNA, ADIFF, ANEU, FERR, GFR, CBC, VIDH, FES, BMP #### [place] [address] #### IFES, SPE, PTH #### [place] [address] MCH (RBC) [Entitic mass] 29.5 pg Normal 27.0-31.2 [facility] ([place] Comment on above: Performed By: #### U REYNA, ADIFF, ANEU, FERR, GFR, CBC, VIDH, FES, BMP #### [place] [address] #### IFES, SPE, PTH #### [place] [address] MCHC 35.6 G/dL Normal 33.0-37.0 [facility] ([place] Comment on above: Performed By: #### U REYNA, ADIFF, ANEU, FERR, GFR, CBC, VIDH, FES, BMP #### [place] [address] #### IFES, SPE, PTH #### [place] [address] MCV (RBC) [Entitic vol] 82.9 fL Normal 80.0-94.0 [facility] ([place] Comment on above: Performed By: #### U REYNA, ADIFF, ANEU, FERR, GFR, CBC, VIDH, FES, BMP #### [place] [address] #### IFES, SPE, PTH #### [place] [address] Platelet 182 10 3/mcL Normal 130-400 [facility] ([place] Comment on above: Performed By: #### U REYNA, ADIFF, ANEU, FERR, GFR, CBC, VIDH, FES, BMP #### [place] [address] #### IFES, SPE, PTH #### [place] [address] Platelet mean volume (Bld) [Entitic vol] 7.2 fL Low 7.4-10.4 [facility] ([place] Comment on above: Performed By: #### U REYNA, ADIFF, ANEU, FERR, GFR, CBC, VIDH, FES, BMP #### [place] [address] #### IFES, SPE, PTH #### [place] [address] RBC 5.18 10 6/mcL Normal 4.20-5.40 [facility] ([place] Comment on above: Performed By: #### U REYNA, ADIFF, ANEU, FERR, GFR, CBC, VIDH, FES, BMP #### [address] [address] #### IFES, SPE, PTH #### [place] [address] WBC 7.1 10 3/mcL Normal 4.6-10.8 [facility] ([place] Comment on above: Performed By: #### U REYNA, ADIFF, ANEU, FERR, GFR, CBC, VIDH, FES, BMP #### [address] [address] #### IFES, SPE, PTH #### [place] [address] LABORATORYOrdered By: SYSTEM SYSTEM on 08-30-2023 Basophil, Absolute 0.0 103/mcL Normal 0.0 - 0.2 10^3/mcL AO Workflow SS Basophils/100 WBC (Bld) 0.3 % Normal 0.0 - 2.5 % AO Workflow SS Calcium [Mass/Vol] 8.9 mg/dL Normal 8.4 - 10. 2 mg/dL AO ADM SS Chloride [Moles/Vol] 103 mmol/L Normal 98 - 10 7 mmol/L AO ADM SS CO2 [Moles/Vol] 27 mmol/L Normal 23 - 31 mmol/L AO ADM SS Creatinine [Mass/Vol] 0.98 mg/dL Normal 0.55 - 1.02 mg/dL AO ADM SS Electrolyte Balance 11.0 mEq/L Normal 4.0 - 15 .0 mEq/L AO ADM SS Eosinophil, Absolute 0.1 103/mcL Normal 0.0 - 0 .4 10^3/mcL AO Workflow SS Eosinophils/100 WBC (Bld) 1.6 % Normal 0.0 - 7.0 % AO Workflow SS Erythrocyte distribution width (RBC) [Ratio] 13.7 % Normal 11.5 - 14.5 % AO Workflow SS GFR/1.73 sq M.predicted among blacks MDRD (S/P/Bld) [Vol rate/Area] 67 ml/min/1.73sqm Invalid Interpretation Code AO Chemistry S Comment on above: Interpretive Data: GFR Population mean for , Non- Americans Ages 20-29 = 116 mL/min/1.73 sq.m. Ages 30-39 = 107 mL/min/1.73 sq.m. Ages 40-49 = 99 mL/min/1.73 sq.m. Ages 50-59 = 93 mL/min/1.73 sq.m. Ages 60-69 = 85 mL/min/1.73 sq.m. Ages 70+ = 75 mL/min/1.73 sq.m. Chronic Kidney Disease: Less than 60 mL/min/1.73 square meters End Stage Renal Disease: Less than 15 mL/min/1.73 square meters GFR/1.73 sq M.predicted among non-blacks MDRD (S/P/Bld) [Vol rate/Area] 55 ml/min/1.73sqm Invalid Interpretation Code AO Chemistry S Comment on above: Interpretive Data: GFR Population mean for , Non- Americans Ages 20-29 = 116 mL/min/1.73 sq.m. Ages 30-39 = 107 mL/min/1.73 sq.m. Ages 40-49 = 99 mL/min/1.73 sq.m. Ages 50-59 = 93 mL/min/1.73 sq.m. Ages 60-69 = 85 mL/min/1.73 sq.m. Ages 70+ = 75 mL/min/1.73 sq.m. Chronic Kidney Disease: Less than 60 mL/min/1.73 square meters End Stage Renal Disease: Less than 15 mL/min/1.73 square meters Glucose [Mass/Vol] 110 mg/dL Normal 83 - 110 mg/dL AO ADM SS Hematocrit (Bld) [Volume fraction] 42.9 % Normal 37.0 - 47.0 % AO Workflow SS Hemoglobin (Bld) [Mass/Vol] 15.3 G/dL Normal 12.0 - 16.0 G/dL AO Workflow SS Lymphocyte, Absolute 1.3 103/mcL Normal 0.8 - 3 .9 10^3/mcL AO Workflow SS Lymphocytes/100 WBC (Bld) 18.6 % Normal 10.0 - 50.0 % AO Workflow SS MCH (RBC) [Entitic mass] 29.5 pg Normal 27.0 - 31.2 pg AO Workflow SS MCHC 35.6 G/dL Normal 33.0 - 37.0 G/dL AO Workflow SS MCV (RBC) [Entitic vol] 82.9 fL Normal 80.0 - 94.0 fL AO Workflow SS Monocyte distribution width Auto (Bld) [Entitic vol] 17.68 1 Normal 0.00 - 20.00 AO Workflow SS Comment on above: Result Comment: For ED adult patients suspected of sepsis, MDW<=20.0 does not rule out sepsis or risk of sepsis Monocyte, Absolute 0.4 103/mcL Normal 0.2 - 1.0 10^3/mcL AO Workflow SS Monocytes/100 WBC (Bld) 5.3 % Normal 1.7 - 13.0 % AO Workflow SS Neutrophil, Absolute 5.2 103/mcL Normal 2.9 - 6 .2 10^3/mcL AO Workflow SS Neutrophils/100 WBC (Bld) 74.2 % Normal 37.0 - 80.0 % AO Workflow SS Platelet mean volume (Bld) [Entitic vol] 7.2 fL Low 7.4 - 10.4 fL AO Workflow SS Platelets (Bld) [#/Vol] 182 103/mcL Normal 130 - 400 10^3/mcL AO Workflow SS Potassium [Moles/Vol] 3.7 mmol/L Normal 3.5 - 5.1 mmol/L AO ADM SS RBC (Bld) [#/Vol] 5.18 106/mcL Normal 4.20 - 5.4 0 10^6/mcL AO Workflow SS Sodium [Moles/Vol] 141 mmol/L Normal 136 - 145 mmol/L AO ADM SS Troponin I.cardiac DL <= 0.01 ng/mL [Mass/Vol] 5 ng/L Normal 0 - 51 ng/L AO ADM SS Comment on above: Interpretive Data: H igh Sensitive Troponin I Reference Ranges: Female: 0-51 ng/L Male: 0-76 ng/L Testing performed on [employer] using a homogeneous sandwich chemiluminescent immunoassay based on [employer] technology. Urea nitrogen [Mass/Vol] 25 mg/dL High 7 - 18 mg/dL AO ADM SS Urea nitrogen/Creatinine [Mass ratio] 26 ratio Normal 7 - 27 ratio AO ADM SS WBC (Bld) [#/Vol] 7.1 103/mcL Normal 4.6 - 10.8 10^3/mcL AO Workflow SS TROPHSon 03-26-2024 High Sensitivity Troponin I 5 ng/L Normal 0-51 [facility] ([place]) Comment on above: Result Comment: High Sensitive Troponin I Reference Ranges: Female: 0-51 ng/L Male: 0-76 ng/L Testing performed on [employer] using a homogeneous sandwich chemiluminescent immunoassay based on [employer] technology. Performed By: #### U REYNA, ADIFF, ANEU, FERR, GFR, CBC, VIDH, FES, BMP #### [address] [place], [place] [address] #### IFES, SPE, PTH #### [address] [address] XR CHEST 1 VIEWon 08-30-2023 XR CHEST 1 VIEW ORIGINAL EXAMINATION: ONE XRAY VIEW OF THE CHEST TECHNIQUE: AP upright, one view COMPARISON: None HISTORY: ORDERING SYSTEM PROVIDED HISTORY: Reason for Exam: chest pain FINDINGS: Support devices: None Cardiomediastinal: The heart size is normal. Lungs: The lungs are mildly hyperinflated. No consolidation, pulmonary edema or a pleural effusion is seen. Pneumothorax: None. Osseous: No acute osseous pathology. Widespread thoracic spondylotic changes. IMPRESSION: No acute pulmonary disease. Interpreted by: Vito Hyatt MD Preliminary Report By: Vito Hyatt MD Electronically signed By Vito Hyatt MD Dictated Date: 08/30/2023 12:03:29 PM Prelim Date: 08/30/2023 12:04:15 PM Sign Date: 08/30/2023 12:04:15 PM Ordering Provider: TYRELL Ha [facility] ([place]) .Auto Diffon 03-17-2023 Basophil, Absolute 0.0 10 3/mcL Normal 0.0-0.2 [facility] ([place]) Comment on above: Performed By: #### C MP, VIDH, GFR, ANEU, TSH, CBC, ADIFF, LIPID ####[address] [place], [place] [address] Basophils/100 WBC (Bld) 0.8 % Normal 0.0-2.5 [facility] ([place]) Comment on above: Performed By: #### C MP, VIDH, GFR, ANEU, TSH, CBC, ADIFF, LIPID ####[address] [place], [place] [address] Eosinophil, Absolute 0.1 10 3/mcL Normal 0.0-0.4 [facility] ([place]) Comment on above: Performed By: #### C MP, VIDH, GFR, ANEU, TSH, CBC, ADIFF, LIPID ####[address] [place], [place] [address] Eosinophils/100 WBC (Bld) 2.5 % Normal 0.0-7.0 [facility] ([place]) Comment on above: Performed By: #### C MP, VIDH, GFR, ANEU, TSH, CBC, ADIFF, LIPID ####[address] [place], [place] [address] Lymphocyte, Absolute 1.5 10 3/mcL Normal 0.8-3.9 [facility] ([place]) Comment on above: Performed By: #### C MP, VIDH, GFR, ANEU, TSH, CBC, ADIFF, LIPID ####[address] [place], [place] [address] Lymphocytes/100 WBC (Bld) 24.7 % Normal 10.0-50.0 [facility] ([place] Comment on above: Performed By: #### C MP, VIDH, GFR, ANEU, TSH, CBC, ADIFF, LIPID ####[address] [place], [place] [address] Monocyte, Absolute 0.5 10 3/mcL Normal 0.2-1.0 [facility] ([place]) Comment on above: Performed By: #### C MP, VIDH, GFR, ANEU, TSH, CBC, ADIFF, LIPID ####[address] [place], [place] [address] Monocytes/100 WBC (Bld) 8.2 % Normal 1.7-13.0 [facility] ([place] Comment on above: Performed By: #### C MP, VIDH, GFR, ANEU, TSH, CBC, ADIFF, LIPID ####[address] [place], [place] [address] Neutrophils/100 WBC (Bld) 63.8 % Normal 37.0-80.0 [facility] ([place]) Comment on above: Performed By: #### C MP, VIDH, GFR, ANEU, TSH, CBC, ADIFF, LIPID ####[facility] [place], [place] [id number] .GFRon 03-17-2023 GFR 68 ml/min/1.73sqm Normal [facility] ([place]) Comment on above: Result Comment: GFR Population mean for , Non- Americans Ages 20-29 = 116 mL/min/1.73 sq.m. Ages 30-39 = 107 mL/min/1.73 sq.m. Ages 40-49 = 99 mL/min/1.73 sq.m. Ages 50-59 = 93 mL/min/1.73 sq.m. Ages 60-69 = 85 mL/min/1.73 sq.m. Ages 70+ = 75 mL/min/1.73 sq.m. Chronic Kidney Disease: Less than 60 mL/min/1.73 square meters End Stage Renal Disease: Less than 15 mL/min/1.73 square meters Performed By: #### U REYNA, ADIFF, ANEU, FERR, GFR, CBC, VIDH, FES, BMP #### [id number] [place], [place] [address] #### IFES, SPE, PTH #### [address] [address] GFR Non- 56 ml/min/1.73sqm Normal [facility] ([place]) Comment on above: Result Comment: GFR Population mean for , Non- Americans Ages 20-29 = 116 mL/min/1.73 sq.m. Ages 30-39 = 107 mL/min/1.73 sq.m. Ages 40-49 = 99 mL/min/1.73 sq.m. Ages 50-59 = 93 mL/min/1.73 sq.m. Ages 60-69 = 85 mL/min/1.73 sq.m. Ages 70+ = 75 mL/min/1.73 sq.m. Chronic Kidney Disease: Less than 60 mL/min/1.73 square meters End Stage Renal Disease: Less than 15 mL/min/1.73 square meters Performed By: #### U REYNA, ADIFF, ANEU, FERR, GFR, CBC, VIDH, FES, BMP #### [address] [address] #### IFES, SPE, PTH #### [address] [address] .NEUABSon 03-17-2023 Neutrophil, Absolute 3.8 10 3/mcL Normal 2.9-6.2 [facility] ([place]) Comment on above: Performed By: #### U REYNA, ADIFF, ANEU, FERR, GFR, CBC, VIDH, FES, BMP #### [address] [address] #### IFES, SPE, PTH #### [address] [address] CBCon 03-17-2023 Erythrocyte distribution width (RBC) [Ratio] 13.8 % Normal 11.5-14.5 [facility] ([place]) Comment on above: Performed By: #### C MP, VIDH, GFR, ANEU, TSH, CBC, ADIFF, LIPID ####[address] [address] Hematocrit (Bld) [Volume fraction] 44.3 % Normal 37.0-47.0 [facility] ([place]) Comment on above: Performed By: #### C MP, VIDH, GFR, ANEU, TSH, CBC, ADIFF, LIPID ####[address] [address] Hgb 15.2 G/dL Normal 12.0-16.0 [facility] ([place]) Comment on above: Performed By: #### C MP, VIDH, GFR, ANEU, TSH, CBC, ADIFF, LIPID ####[address] [address] MCH (RBC) [Entitic mass] 29.0 pg Normal 27.0-31.2 [facility] ([place]) Comment on above: Performed By: #### C MP, VIDH, GFR, ANEU, TSH, CBC, ADIFF, LIPID ####[address] [place], [place] [address] MCHC 34.3 G/dL Normal 33.0-37.0 [facility] ([place]) Comment on above: Performed By: #### C MP, VIDH, GFR, ANEU, TSH, CBC, ADIFF, LIPID ####[address] [place], [place] [address] MCV (RBC) [Entitic vol] 84.6 fL Normal 80.0-94.0 [facility] ([place]) Comment on above: Performed By: #### C MP, VIDH, GFR, ANEU, TSH, CBC, ADIFF, LIPID ####[address] [place], [place] [address] Platelet 191 10 3/mcL Normal 130-400 [facility] ([place]) Comment on above: Performed By: #### C MP, VIDH, GFR, ANEU, TSH, CBC, ADIFF, LIPID ####[address] [place], [place] [address] Platelet mean volume (Bld) [Entitic vol] 7.9 fL Normal 7.4-10.4 [facility] ([place]) Comment on above: Performed By: #### C MP, VIDH, GFR, ANEU, TSH, CBC, ADIFF, LIPID ####[address] [place], [place] [address] RBC 5.24 10 6/mcL Normal 4.20-5.40 [facility] ([place]) Comment on above: Performed By: #### C MP, VIDH, GFR, ANEU, TSH, CBC, ADIFF, LIPID ####[address] [place], [place] [address] WBC 6.0 10 3/mcL Normal 4.6-10.8 [facility] ([place]) Comment on above: Performed By: #### C MP, VIDH, GFR, ANEU, TSH, CBC, ADIFF, LIPID ####[address] [place], [place] [address] CMPon 03-17-2023 Albumin Level 3.8 G/dL Normal 3.4-4.8 [facility] ([place]) Comment on above: Performed By: #### U REYNA, ADIFF, ANEU, FERR, GFR, CBC, VIDH, FES, BMP #### [address] [address] #### IFES, SPE, PTH #### [address] [address] Albumin/Globulin [Mass ratio] 1.1 {ratio} Normal 1.1-2.5 [facility] ([place]) Comment on above: Performed By: #### U REYNA, ADIFF, ANEU, FERR, GFR, CBC, VIDH, FES, BMP #### [place] [address] #### IFES, SPE, PTH #### [address] [address] ALP [Catalytic activity/Vol] 101 U/L Normal 40-135 [facility] ([place]) Comment on above: Performed By: #### U REYNA, ADIFF, ANEU, FERR, GFR, CBC, VIDH, FES, BMP #### [place] [address] #### IFES, SPE, PTH #### [address] [address] ALT [Catalytic activity/Vol] 26 U/L Normal 14-59 [facility] ([place]) Comment on above: Performed By: #### U REYNA, ADIFF, ANEU, FERR, GFR, CBC, VIDH, FES, BMP #### [place] [address] #### IFES, SPE, PTH #### [address] [address] AST [Catalytic activity/Vol] 24 U/L Normal 10-40 [facility] ([place]) Comment on above: Performed By: #### U REYNA, ADIFF, ANEU, FERR, GFR, CBC, VIDH, FES, BMP #### [place] [address] #### IFES, SPE, PTH #### [address] [address] Bili Total 0.6 mg/dL Normal 0.2-1.0 [facility] ([place]) Comment on above: Result Comment: Use of this assay is not recommended for patients undergoing treatment with eltrombopag due to the potential for falsely elevated results. Performed By: #### U REYNA, ADIFF, ANEU, FERR, GFR, CBC, VIDH, FES, BMP #### [place] [address] #### IFES, SPE, PTH #### [address] [address] BUN/Creatinine Ratio 22 ratio Normal 7-27 [facility] ([place]) Comment on above: Performed By: #### U REYNA, ADIFF, ANEU, FERR, GFR, CBC, VIDH, FES, BMP #### [place] [address] #### IFES, SPE, PTH #### [address] [address] Calcium [Mass/Vol] 8.8 mg/dL Normal 8.4-10.2 [facility] ([place]) Comment on above: Performed By: #### U REYNA, ADIFF, ANEU, FERR, GFR, CBC, VIDH, FES, BMP #### [place] [address] #### IFES, SPE, PTH #### [address] [address] Chloride [Moles/Vol] 103 mmol/L Normal 98-107 [facility] ([place]) Comment on above: Performed By: #### U REYNA, ADIFF, ANEU, FERR, GFR, CBC, VIDH, FES, BMP #### [place] [address] #### IFES, SPE, PTH #### [address] [address] CO2 [Moles/Vol] 33 mmol/L High 23-31 [facility] ([place]) Comment on above: Performed By: #### U REYNA, ADIFF, ANEU, FERR, GFR, CBC, VIDH, FES, BMP #### [place] [address] #### IFES, SPE, PTH #### [address] [address] Creatinine [Mass/Vol] 0.97 mg/dL Normal 0.55-1.02 [facility] ([place]) Comment on above: Performed By: #### U REYNA, ADIFF, ANEU, FERR, GFR, CBC, VIDH, FES, BMP #### [place] [address] #### IFES, SPE, PTH #### [address] [address] Electrolyte Balance 2.0 mEq/L Low 4.0-15.0 [facility] ([place]) Comment on above: Performed By: #### U REYNA, ADIFF, ANEU, FERR, GFR, CBC, VIDH, FES, BMP #### [place] [address] #### IFES, SPE, PTH #### [address] [address] Globulin 3.6 G/dL Normal [facility] ([place]) Comment on above: Performed By: #### U REYNA, ADIFF, ANEU, FERR, GFR, CBC, VIDH, FES, BMP #### [place] [address] #### IFES, SPE, PTH #### [address] [address] Glucose [Mass/Vol] 88 mg/dL Normal 83-110 [facility] ([place]) Comment on above: Performed By: #### U REYNA, ADIFF, ANEU, FERR, GFR, CBC, VIDH, FES, BMP #### [place] [address] #### IFES, SPE, PTH #### [address] [address] Potassium [Moles/Vol] 4.3 mmol/L Normal 3.5-5.1 [facility] ([place]) Comment on above: Performed By: #### U REYNA, ADIFF, ANEU, FERR, GFR, CBC, VIDH, FES, BMP #### [address] [address] #### IFES, SPE, PTH #### [address] [address] Sodium [Moles/Vol] 138 mmol/L Normal 136-145 [facility] ([place]) Comment on above: Performed By: #### U REYNA, ADIFF, ANEU, FERR, GFR, CBC, VIDH, FES, BMP #### [address] [address] #### IFES, SPE, PTH #### [address] [address] Total Protein 7.4 G/dL Normal 6.4-8.2 [facility] ([place]) Comment on above: Performed By: #### U REYNA, ADIFF, ANEU, FERR, GFR, CBC, VIDH, FES, BMP #### [address] [address] #### IFES, SPE, PTH #### [address] [address] Urea nitrogen [Mass/Vol] 21 mg/dL High 7-18 [facility] ([place]) Comment on above: Performed By: #### U REYNA, ADIFF, ANEU, FERR, GFR, CBC, VIDH, FES, BMP #### [place] [address] #### IFES, SPE, PTH #### [address] [address] LABORATORYOrdered By: SYSTEM SYSTEM on 03-17-2023 25-hydroxyvitamin D3 [Mass/Vol] 37.5 ng/mL Invalid Interpretation Code AO ADM SS Comment on above: Interpretive Data: I nterpretive Values Based on Total 25(OH) Vitamin D: Deficient <20 ng/mL Insufficient 20 - <30 ng/mL Sufficient 30-100 ng/mL Albumin BCP dye [Mass/Vol] 3.8 G/dL Invalid Interpretation Code 3.4 - 4.8 G/dL AO ADM SS Albumin/Globulin [Mass ratio] 1.1 {ratio} Invalid Interpretation Code 1.1 - 2.5 ratio AO ADM SS ALP [Catalytic activity/Vol] 101 U/L Invalid Interpretation Code 40 - 135 U/L AO ADM SS ALT With P-5'-P [Catalytic activity/Vol] 26 U/L Invalid Interpretation Code 14 - 59 U/L AO ADM SS AST With P-5'-P [Catalytic activity/Vol] 24 U/L Invalid Interpretation Code 10 - 40 U/L AO ADM SS Basophil, Absolute 0.0 103/mcL Invalid Interpretation Code 0.0 - 0.2 10^3/mcL AO Workflow SS Basophils/100 WBC (Bld) 0.8 % Invalid Interpretation Code 0.0 - 2.5 % AO Workflow SS Bilirubin [Mass/Vol] 0.6 mg/dL Invalid Interpretation Code 0.2 - 1.0 mg/dL AO ADM SS Comment on above: Interpretive Data: U se of this assay is not recommended for patients undergoing treatment with eltrombopag due to the potential for falsely elevated results. Calcium [Mass/Vol] 8.8 mg/dL Invalid Interpretation Code 8.4 - 10.2 mg/dL AO ADM SS Chloride [Moles/Vol] 103 mmol/L Invalid Interpretation Code 98 - 107 mmol/L AO ADM SS CO2 [Moles/Vol] 33 mmol/L Invalid Interpretation Code 23 - 31 mmol/L AO ADM SS Creatinine [Mass/Vol] 0.97 mg/dL Invalid Interpretation Code 0.55 - 1.02 mg/dL AO ADM SS Electrolyte Balance 2.0 mEq/L Invalid Interpretation Code 4.0 - 15.0 mEq/L AO ADM SS Eosinophil, Absolute 0.1 103/mcL Invalid Interpretation Code 0.0 - 0.4 10^3/mcL AO Workflow SS Eosinophils/100 WBC (Bld) 2.5 % Invalid Interpretation Code 0.0 - 7.0 % AO Workflow SS Erythrocyte distribution width (RBC) [Ratio] 13.8 % Invalid Interpretation Code 11.5 - 14.5 % AO Workflow SS GFR/1.73 sq M.predicted among blacks MDRD (S/P/Bld) [Vol rate/Area] 68 ml/min/1.73sqm Invalid Interpretation Code AO Chemistry S Comment on above: Interpretive Data: GFR Population mean for , Non- Americans Ages 20-29 = 116 mL/min/1.73 sq.m. Ages 30-39 = 107 mL/min/1.73 sq.m. Ages 40-49 = 99 mL/min/1.73 sq.m. Ages 50-59 = 93 mL/min/1.73 sq.m. Ages 60-69 = 85 mL/min/1.73 sq.m. Ages 70+ = 75 mL/min/1.73 sq.m. Chronic Kidney Disease: Less than 60 mL/min/1.73 square meters End Stage Renal Disease: Less than 15 mL/min/1.73 square meters GFR/1.73 sq M.predicted among non-blacks MDRD (S/P/Bld) [Vol rate/Area] 56 ml/min/1.73sqm Invalid Interpretation Code AO Chemistry S Comment on above: Interpretive Data: GFR Population mean for , Non- Americans Ages 20-29 = 116 mL/min/1.73 sq.m. Ages 30-39 = 107 mL/min/1.73 sq.m. Ages 40-49 = 99 mL/min/1.73 sq.m. Ages 50-59 = 93 mL/min/1.73 sq.m. Ages 60-69 = 85 mL/min/1.73 sq.m. Ages 70+ = 75 mL/min/1.73 sq.m. Chronic Kidney Disease: Less than 60 mL/min/1.73 square meters End Stage Renal Disease: Less than 15 mL/min/1.73 square meters Globulin 3.6 G/dL Invalid Interpretation Code AO ADM SS Glucose [Mass/Vol] 88 mg/dL Invalid Interpretation Code 83 - 110 mg/dL AO ADM SS Hematocrit (Bld) [Volume fraction] 44.3 % Invalid Interpretation Code 37.0 - 47.0 % AO Workflow SS Hemoglobin (Bld) [Mass/Vol] 15.2 G/dL Invalid Interpretation Code 12.0 - 16.0 G/dL AO Workflow SS Lymphocyte, Absolute 1.5 103/mcL Invalid Interpretation Code 0.8 - 3.9 10^3/mcL AO Workflow SS Lymphocytes/100 WBC (Bld) 24.7 % Invalid Interpretation Code 10.0 - 50.0 % AO Workflow SS MCH (RBC) [Entitic mass] 29.0 pg Invalid Interpretation Code 27.0 - 31.2 pg AO Workflow SS MCHC 34.3 G/dL Invalid Interpretation Code 33.0 - 37.0 G/dL AO Workflow SS MCV (RBC) [Entitic vol] 84.6 fL Invalid Interpretation Code 80.0 - 94.0 fL AO Workflow SS Monocyte, Absolute 0.5 103/mcL Invalid Interpretation Code 0.2 - 1.0 10^3/mcL AO Workflow SS Monocytes/100 WBC (Bld) 8.2 % Invalid Interpretation Code 1.7 - 13.0 % AO Workflow SS Neutrophil, Absolute 3.8 103/mcL Invalid Interpretation Code 2.9 - 6.2 10^3/mcL AO Workflow SS Neutrophils/100 WBC (Bld) 63.8 % Invalid Interpretation Code 37.0 - 80.0 % AO Workflow SS Platelet mean volume (Bld) [Entitic vol] 7.9 fL Invalid Interpretation Code 7.4 - 10.4 fL AO Workflow SS Platelets (Bld) [#/Vol] 191 103/mcL Invalid Interpretation Code 130 - 400 10^3/mcL AO Workflow SS Potassium [Moles/Vol] 4.3 mmol/L Invalid Interpretation Code 3.5 - 5.1 mmol/L AO ADM SS Protein [Mass/Vol] 7.4 G/dL Invalid Interpretation Code 6.4 - 8.2 G/dL AO ADM SS RBC (Bld) [#/Vol] 5.24 106/mcL Invalid Interpretation Code 4.20 - 5.40 10^6/mcL AO Workflow SS Sodium [Moles/Vol] 138 mmol/L Invalid Interpretation Code 136 - 145 mmol/L AO ADM SS TSH Qn 2.27 m[IU]/L Invalid Interpretation Code 0.36 - 3.74 mcIU/mL AO ADM SS Urea nitrogen [Mass/Vol] 21 mg/dL Invalid Interpretation Code 7 - 18 mg/dL AO ADM SS Urea nitrogen/Creatinine [Mass ratio] 22 ratio Invalid Interpretation Code 7 - 27 ratio AO ADM SS WBC (Bld) [#/Vol] 6.0 103/mcL Invalid Interpretation Code 4.6 - 10.8 10^3/mcL AO Workflow SS LABORATORYOrdered By: Awilda Oneal on 03-17-2023 Cholesterol [Mass/Vol] 228 mg/dL Invalid Interpretation Code 0 - 200 mg/dL AO ADM SS Comment on above: Interpretive Data: C holesterol Reference Interval: Less than 200 Desirable 200-239 Borderline high risk 240 and above High risk Cholesterol in HDL [Mass/Vol] 50 mg/dL Invalid Interpretation Code 40 - 60 mg/dL AO ADM SS Cholesterol in LDL [Mass/Vol] 157 mg/dL Invalid Interpretation Code 0 - 130 mg/dL AO ADM SS Triglyceride [Mass/Vol] 103 mg/dL Invalid Interpretation Code 0 - 150 mg/dL AO ADM SS Comment on above: Interpretive Data: T riglyceride Reference Interval: Less than 150 Normal 150-199 Borderline high risk 200-499 High risk 500 or higher Very high risk LIPIDon 03-17-2023 Cholesterol [Mass/Vol] 228 mg/dL High 0-200 [facility] ([place]) Comment on above: Result Comment: Chol esterol Reference Interval: Less than 200 Desirable 200-239 Borderline high risk 240 and above High risk Performed By: #### U REYNA, ADIFF, ANEU, FERR, GFR, CBC, VIDH, FES, BMP #### [address] [address] #### IFES, SPE, PTH #### [address] [address] Cholesterol in HDL [Mass/Vol] 50 mg/dL Normal 40-60 [facility] ([place]) Comment on above: Performed By: #### U REYNA, ADIFF, ANEU, FERR, GFR, CBC, VIDH, FES, BMP #### [address] [address] #### IFES, SPE, PTH #### [address] [address] Cholesterol in LDL [Mass/Vol] 157 mg/dL High 0-130 [facility] ([place]) Comment on above: Performed By: #### U REYNA, ADIFF, ANEU, FERR, GFR, CBC, VIDH, FES, BMP #### [address] [address] #### IFES, SPE, PTH #### [address] [address] Triglyceride [Mass/Vol] 103 mg/dL Normal 0-150 [facility] ([place]) Comment on above: Result Comment: Trig lyceride Reference Interval: Less than 150 Normal 150-199 Borderline high risk 200-499 High risk 500 or higher Very high risk Performed By: #### U REYNA, ADIFF, ANEU, FERR, GFR, CBC, VIDH, FES, BMP #### [address] [address] #### IFES, SPE, PTH #### [address] [address] TSHon 03-17-2023 TSH Qn 2.27 m[IU]/L Normal 0.36-3.74 [facility] ([place]) Comment on above: Performed By: #### U REYNA, ADIFF, ANEU, FERR, GFR, CBC, VIDH, FES, BMP #### [place] [address] #### IFES, SPE, PTH #### [place] [address] VIDHon 03-17-2023 Vit. D 25-Hydroxy 37.5 ng/mL Normal [facility] ([place]) Comment on above: Result Comment: Inte rpretive Values Based on Total 25(OH) Vitamin D: Deficient <20 ng/mL Insufficient 20 - <30 ng/mL Sufficient 30-100 ng/mL Performed By: #### U REYNA, ADIFF, ANEU, FERR, GFR, CBC, VIDH, FES, BMP #### [place] [address] #### IFES, SPE, PTH #### [place] [address] LABORATORYOrdered By: SYSTEM SYSTEM on 09-24-2022 25-hydroxyvitamin D3 [Mass/Vol] 38.3 ng/mL Invalid Interpretation Code AO ADM SS Albumin BCP dye [Mass/Vol] 3.8 G/dL Invalid Interpretation Code 3.4 - 4.8 G/dL AO ADM SS Albumin/Globulin [Mass ratio] 1.2 {ratio} Invalid Interpretation Code 1.1 - 2.5 ratio AO ADM SS ALP [Catalytic activity/Vol] 97 U/L Invalid Interpretation Code 40 - 135 U/L AO ADM SS ALT With P-5'-P [Catalytic activity/Vol] 29 U/L Invalid Interpretation Code 14 - 59 U/L AO ADM SS AST With P-5'-P [Catalytic activity/Vol] 28 U/L Invalid Interpretation Code 10 - 40 U/L AO ADM SS Bilirubin [Mass/Vol] 0.6 mg/dL Invalid Interpretation Code 0.2 - 1.0 mg/dL AO ADM SS Calcium [Mass/Vol] 9.0 mg/dL Invalid Interpretation Code 8.4 - 10.2 mg/dL AO ADM SS Chloride [Moles/Vol] 106 mmol/L Invalid Interpretation Code 98 - 107 mmol/L AO ADM SS CO2 [Moles/Vol] 30 mmol/L Invalid Interpretation Code 23 - 31 mmol/L AO ADM SS Creatinine [Mass/Vol] 1.00 mg/dL Invalid Interpretation Code 0.55 - 1.02 mg/dL AO ADM SS Electrolyte Balance 7.0 mEq/L Invalid Interpretation Code 4.0 - 15.0 mEq/L AO ADM SS GFR/1.73 sq M.predicted among blacks MDRD (S/P/Bld) [Vol rate/Area] 66 ml/min/1.73sqm Invalid Interpretation Code AO Chemistry S GFR/1.73 sq M.predicted among non-blacks MDRD (S/P/Bld) [Vol rate/Area] 54 ml/min/1.73sqm Invalid Interpretation Code AO Chemistry S Globulin 3.2 G/dL Invalid Interpretation Code AO ADM SS Glucose [Mass/Vol] 80 mg/dL Invalid Interpretation Code 83 - 110 mg/dL AO ADM SS Potassium [Moles/Vol] 4.4 mmol/L Invalid Interpretation Code 3.5 - 5.1 mmol/L AO ADM SS Protein [Mass/Vol] 7.0 G/dL Invalid Interpretation Code 6.4 - 8.2 G/dL AO ADM SS Sodium [Moles/Vol] 143 mmol/L Invalid Interpretation Code 136 - 145 mmol/L AO ADM SS TSH Qn 1.71 m[IU]/L Invalid Interpretation Code 0.36 - 3.74 mcIU/mL AO ADM SS Urea nitrogen [Mass/Vol] 18 mg/dL Invalid Interpretation Code 7 - 18 mg/dL AO ADM SS Urea nitrogen/Creatinine [Mass ratio] 18 ratio Invalid Interpretation Code 7 - 27 ratio AO ADM SS LABORATORYOrdered By: Candy Woodson on 09-24-2022 Basophil, Absolute 0.0 103/mcL Invalid Interpretation Code 0.0 - 0.2 10^3/mcL AO Workflow SS Basophils/100 WBC (Bld) 0.4 % Invalid Interpretation Code 0.0 - 2.5 % AO Workflow SS Cholesterol [Mass/Vol] 191 mg/dL Invalid Interpretation Code 0 - 200 mg/dL AO ADM SS Cholesterol in HDL [Mass/Vol] 41 mg/dL Invalid Interpretation Code 40 - 60 mg/dL AO ADM SS Cholesterol in LDL [Mass/Vol] 126 mg/dL Invalid Interpretation Code 0 - 130 mg/dL AO ADM SS Eosinophil, Absolute 0.1 103/mcL Invalid Interpretation Code 0.0 - 0.4 10^3/mcL AO Workflow SS Eosinophils/100 WBC (Bld) 2.7 % Invalid Interpretation Code 0.0 - 7.0 % AO Workflow SS Erythrocyte distribution width (RBC) [Ratio] 13.2 % Invalid Interpretation Code 11.5 - 14.5 % AO Workflow SS Hematocrit (Bld) [Volume fraction] 42.9 % Invalid Interpretation Code 37.0 - 47.0 % AO Workflow SS Hemoglobin (Bld) [Mass/Vol] 14.7 G/dL Invalid Interpretation Code 12.0 - 16.0 G/dL AO Workflow SS Lymphocyte, Absolute 1.4 103/mcL Invalid Interpretation Code 0.8 - 3.9 10^3/mcL AO Workflow SS Lymphocytes/100 WBC (Bld) 25.3 % Invalid Interpretation Code 10.0 - 50.0 % AO Workflow SS MCH (RBC) [Entitic mass] 28.8 pg Invalid Interpretation Code 27.0 - 31.2 pg AO Workflow SS MCHC 34.2 G/dL Invalid Interpretation Code 33.0 - 37.0 G/dL AO Workflow SS MCV (RBC) [Entitic vol] 84.2 fL Invalid Interpretation Code 80.0 - 94.0 fL AO Workflow SS Monocyte, Absolute 0.5 103/mcL Invalid Interpretation Code 0.2 - 1.0 10^3/mcL AO Workflow SS Monocytes/100 WBC (Bld) 8.4 % Invalid Interpretation Code 1.7 - 13.0 % AO Workflow SS Neutrophil, Absolute 3.4 103/mcL Invalid Interpretation Code 2.9 - 6.2 10^3/mcL AO Workflow SS Neutrophils/100 WBC (Bld) 63.2 % Invalid Interpretation Code 37.0 - 80.0 % AO Workflow SS Platelet mean volume (Bld) [Entitic vol] 8.1 fL Invalid Interpretation Code 7.4 - 10.4 fL AO Workflow SS Platelets (Bld) [#/Vol] 203 103/mcL Invalid Interpretation Code 130 - 400 10^3/mcL AO Workflow SS RBC (Bld) [#/Vol] 5.09 106/mcL Invalid Interpretation Code 4.20 - 5.40 10^6/mcL AO Workflow SS Triglyceride [Mass/Vol] 121 mg/dL Invalid Interpretation Code 0 - 150 mg/dL AO ADM SS WBC (Bld) [#/Vol] 5.4 103/mcL Invalid Interpretation Code 4.6 - 10.8 10^3/mcL AO Workflow SS LABORATORYOrdered By: Candy Woodson on 03-26-2022 Albumin BCP dye [Mass/Vol] 3.9 G/dL Invalid Interpretation Code 3.4 - 4.8 G/dL AO ADM SS Albumin/Globulin [Mass ratio] 1.2 {ratio} Invalid Interpretation Code 1.1 - 2.5 ratio AO ADM SS ALP [Catalytic activity/Vol] 102 U/L Invalid Interpretation Code 40 - 135 U/L AO ADM SS ALT With P-5'-P [Catalytic activity/Vol] 28 U/L Invalid Interpretation Code 14 - 59 U/L AO ADM SS AST With P-5'-P [Catalytic activity/Vol] 24 U/L Invalid Interpretation Code 10 - 40 U/L AO ADM SS Bilirubin [Mass/Vol] 0.6 mg/dL Invalid Interpretation Code 0.2 - 1.0 mg/dL AO ADM SS Calcium [Mass/Vol] 9.1 mg/dL Invalid Interpretation Code 8.4 - 10.2 mg/dL AO ADM SS Chloride [Moles/Vol] 102 mmol/L Invalid Interpretation Code 98 - 107 mmol/L AO ADM SS Cholesterol [Mass/Vol] 207 mg/dL Invalid Interpretation Code 0 - 200 mg/dL AO ADM SS Cholesterol in HDL [Mass/Vol] 48 mg/dL Invalid Interpretation Code 40 - 60 mg/dL AO ADM SS Cholesterol in LDL [Mass/Vol] 133 mg/dL Invalid Interpretation Code 0 - 130 mg/dL AO ADM SS CO2 [Moles/Vol] 33 mmol/L Invalid Interpretation Code 23 - 31 mmol/L AO ADM SS Creatinine [Mass/Vol] 0.96 mg/dL Invalid Interpretation Code 0.55 - 1.02 mg/dL AO ADM SS Electrolyte Balance 6.0 mEq/L Invalid Interpretation Code 4.0 - 15.0 mEq/L AO ADM SS Globulin 3.3 G/dL Invalid Interpretation Code AO ADM SS Glucose [Mass/Vol] 88 mg/dL Invalid Interpretation Code 83 - 110 mg/dL AO ADM SS Potassium [Moles/Vol] 4.0 mmol/L Invalid Interpretation Code 3.5 - 5.1 mmol/L AO ADM SS Protein [Mass/Vol] 7.2 G/dL Invalid Interpretation Code 6.4 - 8.2 G/dL AO ADM SS Sodium [Moles/Vol] 141 mmol/L Invalid Interpretation Code 136 - 145 mmol/L AO ADM SS Triglyceride [Mass/Vol] 131 mg/dL Invalid Interpretation Code 0 - 150 mg/dL AO ADM SS TSH Qn 1.14 m[IU]/L Invalid Interpretation Code 0.36 - 3.74 mcIU/mL AO ADM SS Urea nitrogen [Mass/Vol] 24 mg/dL Invalid Interpretation Code 7 - 18 mg/dL AO ADM SS Urea nitrogen/Creatinine [Mass ratio] 25 ratio Invalid Interpretation Code 7 - 27 ratio AO ADM SS Vit. D 25-Hydroxy 40.6 ng/mL Invalid Interpretation Code AO ADM SS LABORATORYOrdered By: Vira Darby on 03-26-2022 Basophil, Absolute 0.0 103/mcL Invalid Interpretation Code 0.0 - 0.2 10^3/mcL AO Workflow SS Basophils/100 WBC (Bld) 0.5 % Invalid Interpretation Code 0.0 - 2.5 % AO Workflow SS Eosinophil, Absolute 0.1 103/mcL Invalid Interpretation Code 0.0 - 0.4 10^3/mcL AO Workflow SS Eosinophils/100 WBC (Bld) 1.8 % Invalid Interpretation Code 0.0 - 7.0 % AO Workflow SS Erythrocyte distribution width (RBC) [Ratio] 14.2 % Invalid Interpretation Code 11.5 - 14.5 % AO Workflow SS Hematocrit (Bld) [Volume fraction] 42.8 % Invalid Interpretation Code 37.0 - 47.0 % AO Workflow SS Hemoglobin (Bld) [Mass/Vol] 14.9 G/dL Invalid Interpretation Code 12.0 - 16.0 G/dL AO Workflow SS Lymphocyte, Absolute 1.2 103/mcL Invalid Interpretation Code 0.8 - 3.9 10^3/mcL AO Workflow SS Lymphocytes/100 WBC (Bld) 19.9 % Invalid Interpretation Code 10.0 - 50.0 % AO Workflow SS MCH (RBC) [Entitic mass] 29.0 pg Invalid Interpretation Code 27.0 - 31.2 pg AO Workflow SS MCHC 34.9 G/dL Invalid Interpretation Code 33.0 - 37.0 G/dL AO Workflow SS MCV (RBC) [Entitic vol] 83.2 fL Invalid Interpretation Code 80.0 - 94.0 fL AO Workflow SS Monocyte, Absolute 0.4 103/mcL Invalid Interpretation Code 0.2 - 1.0 10^3/mcL AO Workflow SS Monocytes/100 WBC (Bld) 7.0 % Invalid Interpretation Code 1.7 - 13.0 % AO Workflow SS Neutrophil, Absolute 4.4 103/mcL Invalid Interpretation Code 2.9 - 6.2 10^3/mcL AO Workflow SS Neutrophils/100 WBC (Bld) 70.8 % Invalid Interpretation Code 37.0 - 80.0 % AO Workflow SS Platelet mean volume (Bld) [Entitic vol] 7.8 fL Invalid Interpretation Code 7.4 - 10.4 fL AO Workflow SS Platelets (Bld) [#/Vol] 199 103/mcL Invalid Interpretation Code 130 - 400 10^3/mcL AO Workflow SS RBC (Bld) [#/Vol] 5.15 106/mcL Invalid Interpretation Code 4.20 - 5.40 10^6/mcL AO Workflow SS WBC (Bld) [#/Vol] 6.2 103/mcL Invalid Interpretation Code 4.6 - 10.8 10^3/mcL AO Workflow SS LABORATORYOrdered By: SYSTEM SYSTEM on 03-26-2022 GFR 69 ml/min/1.73sqm Invalid Interpretation Code AO Chemistry S GFR Non- 57 ml/min/1.73sqm Invalid Interpretation Code AO Chemistry S COLONOSCOPY SCREENINGon - [facility] LABORATORYOrdered By: Adam Villegas on 09-25-2021 Albumin BCP dye [Mass/Vol] 3.7 G/dL Invalid Interpretation Code 3.4 - 4.8 G/dL AO ADM SS Albumin/Globulin [Mass ratio] 1.1 {ratio} Invalid Interpretation Code 1.1 - 2.5 ratio AO ADM SS ALP [Catalytic activity/Vol] 93 U/L Invalid Interpretation Code 40 - 135 U/L AO ADM SS ALT With P-5'-P [Catalytic activity/Vol] 31 U/L Invalid Interpretation Code 14 - 59 U/L AO ADM SS AST With P-5'-P [Catalytic activity/Vol] 30 U/L Invalid Interpretation Code 10 - 40 U/L AO ADM SS Bilirubin [Mass/Vol] 0.5 mg/dL Invalid Interpretation Code 0.2 - 1.0 mg/dL AO ADM SS Calcium [Mass/Vol] 9.1 mg/dL Invalid Interpretation Code 8.4 - 10.2 mg/dL AO ADM SS Chloride [Moles/Vol] 104 mmol/L Invalid Interpretation Code 98 - 107 mmol/L AO ADM SS Cholesterol [Mass/Vol] 209 mg/dL Invalid Interpretation Code 0 - 200 mg/dL AO ADM SS Cholesterol in HDL [Mass/Vol] 46 mg/dL Invalid Interpretation Code 40 - 60 mg/dL AO ADM SS Cholesterol in LDL [Mass/Vol] 134 mg/dL Invalid Interpretation Code 0 - 130 mg/dL AO ADM SS CO2 [Moles/Vol] 31 mmol/L Invalid Interpretation Code 23 - 31 mmol/L AO ADM SS Creatinine [Mass/Vol] 0.97 mg/dL Invalid Interpretation Code 0.55 - 1.02 mg/dL AO ADM SS Electrolyte Balance 7.0 mEq/L Invalid Interpretation Code 4.0 - 15.0 mEq/L AO ADM SS Globulin 3.5 G/dL Invalid Interpretation Code AO ADM SS Glucose [Mass/Vol] 93 mg/dL Invalid Interpretation Code 83 - 110 mg/dL AO ADM SS Potassium [Moles/Vol] 4.6 mmol/L Invalid Interpretation Code 3.5 - 5.1 mmol/L AO ADM SS Protein [Mass/Vol] 7.2 G/dL Invalid Interpretation Code 6.4 - 8.2 G/dL AO ADM SS Sodium [Moles/Vol] 142 mmol/L Invalid Interpretation Code 136 - 145 mmol/L AO ADM SS Triglyceride [Mass/Vol] 147 mg/dL Invalid Interpretation Code 0 - 150 mg/dL AO ADM SS TSH Qn 1.38 m[IU]/L Invalid Interpretation Code 0.36 - 3.74 mcIU/mL AO ADM SS Urea nitrogen [Mass/Vol] 24 mg/dL Invalid Interpretation Code 7 - 18 mg/dL AO ADM SS Urea nitrogen/Creatinine [Mass ratio] 25 ratio Invalid Interpretation Code 7 - 27 ratio AO ADM SS Vit. D 25-Hydroxy 43.8 ng/mL Invalid Interpretation Code AO ADM SS LABORATORYOrdered By: Vira Darby on 09-25-2021 Basophil, Absolute 0.00 103/mcL Invalid Interpretation Code 0.00 - 0.19 10^3/mcL AO Auto Heme SS Basophils/100 WBC (Bld) 0.5 % Invalid Interpretation Code 0.0 - 2.5 % AO Auto Heme SS Eosinophil, Absolute 0.10 103/mcL Invalid Interpretation Code 0.00 - 0.40 10^3/mcL AO Auto Heme SS Eosinophils/100 WBC (Bld) 1.7 % Invalid Interpretation Code 0.0 - 7.0 % AO Auto Heme SS Erythrocyte distribution width (RBC) [Ratio] 13.5 % Invalid Interpretation Code 11.5 - 14.5 % AO Auto Heme SS Hematocrit (Bld) [Volume fraction] 38.7 % Invalid Interpretation Code 37.0 - 47.0 % AO Auto Heme SS Hemoglobin (Bld) [Mass/Vol] 13.5 G/dL Invalid Interpretation Code 12.0 - 16.0 G/dL AO Auto Heme SS Lymphocyte, Absolute 1.30 103/mcL Invalid Interpretation Code 0.77 - 3.85 10^3/mcL AO Auto Heme SS Lymphocytes/100 WBC (Bld) 20.3 % Invalid Interpretation Code 10.0 - 50.0 % AO Auto Heme SS MCH (RBC) [Entitic mass] 29.3 pg Invalid Interpretation Code 27.0 - 31.2 pg AO Auto Heme SS MCHC (RBC) [Mass/Vol] 34.9 G/dL Invalid Interpretation Code 33.0 - 37.0 G/dL AO Auto Heme SS MCV (RBC) [Entitic vol] 83.9 fL Invalid Interpretation Code 80.0 - 94.0 fL AO Auto Heme SS Monocyte, Absolute 0.50 103/mcL Invalid Interpretation Code 0.15 - 1.00 10^3/mcL AO Auto Heme SS Monocytes/100 WBC (Bld) 7.4 % Invalid Interpretation Code 1.7 - 13.0 % AO Auto Heme SS Neutrophil, Absolute 4.50 103/mcL Invalid Interpretation Code 2.85 - 6.16 10^3/mcL AO Auto Heme SS Neutrophils/100 WBC (Bld) 70.1 % Invalid Interpretation Code 37.0 - 80.0 % AO Auto Heme SS Platelet mean volume (Bld) [Entitic vol] 8.4 fL Invalid Interpretation Code 7.4 - 10.4 fL AO Auto Heme SS Platelets (Bld) [#/Vol] 197 103/mcL Invalid Interpretation Code 130 - 400 10^3/mcL AO Auto Heme SS RBC (Bld) [#/Vol] 4.61 106/mcL Invalid Interpretation Code 4.20 - 5.40 10^6/mcL AO Auto Heme SS WBC (Bld) [#/Vol] 6.40 103/mcL Invalid Interpretation Code 4.60 - 10.80 10^3/mcL AO Auto Heme SS LABORATORYOrdered By: SYSTEM SYSTEM on 09-25-2021 GFR 68 ml/min/1.73sqm Invalid Interpretation Code AO Chemistry S GFR Non- 56 ml/min/1.73sqm Invalid Interpretation Code AO Chemistry S LABORATORYOrdered By: Adam Villegas on 03-26-2021 Albumin BCP dye [Mass/Vol] 3.9 G/dL Invalid Interpretation Code 3.4 - 4.8 G/dL AO ADM SS Albumin/Globulin [Mass ratio] 1.1 {ratio} Invalid Interpretation Code 1.1 - 2.5 ratio AO ADM SS ALP [Catalytic activity/Vol] 102 U/L Invalid Interpretation Code 40 - 135 U/L AO ADM SS ALT With P-5'-P [Catalytic activity/Vol] 35 U/L Invalid Interpretation Code 14 - 59 U/L AO ADM SS AST With P-5'-P [Catalytic activity/Vol] 27 U/L Invalid Interpretation Code 10 - 40 U/L AO ADM SS Bilirubin [Mass/Vol] 0.5 mg/dL Invalid Interpretation Code 0.2 - 1.0 mg/dL AO ADM SS Calcium [Mass/Vol] 9.1 mg/dL Invalid Interpretation Code 8.4 - 10.2 mg/dL AO ADM SS Chloride [Moles/Vol] 104 mmol/L Invalid Interpretation Code 98 - 107 mmol/L AO ADM SS Cholesterol [Mass/Vol] 241 mg/dL Invalid Interpretation Code 0 - 200 mg/dL AO ADM SS Cholesterol in HDL [Mass/Vol] 46 mg/dL Invalid Interpretation Code 40 - 60 mg/dL AO ADM SS Cholesterol in LDL [Mass/Vol] 163 mg/dL Invalid Interpretation Code 0 - 130 mg/dL AO ADM SS CO2 [Moles/Vol] 30 mmol/L Invalid Interpretation Code 23 - 31 mmol/L AO ADM SS Creatinine [Mass/Vol] 1.06 mg/dL Invalid Interpretation Code 0.55 - 1.02 mg/dL AO ADM SS Electrolyte Balance 8.0 mEq/L Invalid Interpretation Code AO ADM SS Globulin 3.6 G/dL Invalid Interpretation Code AO ADM SS Glucose [Mass/Vol] 90 mg/dL Invalid Interpretation Code 83 - 110 mg/dL AO ADM SS Potassium [Moles/Vol] 4.0 mmol/L Invalid Interpretation Code 3.5 - 5.1 mmol/L AO ADM SS Protein [Mass/Vol] 7.5 G/dL Invalid Interpretation Code 6.4 - 8.2 G/dL AO ADM SS Sodium [Moles/Vol] 142 mmol/L Invalid Interpretation Code 136 - 145 mmol/L AO ADM SS Triglyceride [Mass/Vol] 161 mg/dL Invalid Interpretation Code 0 - 150 mg/dL AO ADM SS TSH Qn 2.06 m[IU]/L Invalid Interpretation Code 0.36 - 3.74 mcIU/mL AO ADM SS Urea nitrogen [Mass/Vol] 23 mg/dL Invalid Interpretation Code 7 - 18 mg/dL AO ADM SS Urea nitrogen/Creatinine [Mass ratio] 22 ratio Invalid Interpretation Code 7 - 27 ratio AO ADM SS Vit. D 25-Hydroxy 49.3 ng/mL Invalid Interpretation Code AO ADM SS LABORATORYOrdered By: SYSTEM SYSTEM on 03-26-2021 GFR 62 ml/min/1.73sqm Invalid Interpretation Code AO Chemistry S GFR Non- 51 ml/min/1.73sqm Invalid Interpretation Code AO Chemistry S Vital Signs Date Time Vital Sign Value Performing Clinician Facility 03-08-2025 10:40-0400 Body height 157.[address] Juan Pablo Jane DO Work Phone: [facility] 03-08-2025 10:40-0400 Body mass index (BMI) [Ratio] 27.8 kg/m2 Dr. Juan Pablo Jane DO Work Phone: [facility] 03-08-2025 10:40-0400 Body weight 68.[address] Juan Pablo Jane DO Work Phone: [facility] 03-08-2025 10:40-0400 Diastolic blood pressure 78 mm[Hg] Dr. Juan Pablo Jane DO Work Phone: [facility] 03-08-2025 10:40-0400 Heart rate 55 /min Dr. Juan Pablo Jane DO Work Phone: [facility] 03-08-2025 10:40-0400 Respiratory rate 18 /min Dr. Juan Pablo Jane DO Work Phone: [facility] 03-08-2025 10:40-0400 SaO2% (BldA) [Mass fraction] 98 % Dr. Juan Pablo Jane DO Work Phone: [facility] 03-08-2025 10:40-0400 Systolic blood pressure 125 mm[Hg] Dr. Juan Pablo Jane DO Work Phone: [facility] 01-27-2025 16:47-0400 Diastolic blood pressure 73 mm[Hg] Aron Bender MD Work Phone: [facility] 01-27-2025 16:47-0400 Heart rate 60 /min Aron Bender MD Work Phone: [facility] 01-27-2025 16:47-0400 Respiratory rate 15 /min Aron Bender MD Work Phone: [facility] 01-27-2025 16:47-0400 SaO2% (BldA) [Mass fraction] 96 % Aron Bender MD Work Phone: [facility] 01-27-2025 16:47-0400 Systolic blood pressure 132 mm[Hg] Aron Bender MD Work Phone: [facility] 01-27-2025 14:00-0400 Body temperature 98.49 [degF] Aron Bender MD Work Phone: [facility] 10-12-2024 15:25-0400 Diastolic blood pressure 62 mm[Hg] Jorje Rayo MD Work Phone: [facility] 10-12-2024 15:25-0400 Heart rate 67 /min Jorje Rayo MD Work Phone: [facility] 10-12-2024 15:25-0400 Respiratory rate 18 /min Jorje aRyo MD Work Phone: [facility] 10-12-2024 15:25-0400 SaO2% (BldA) [Mass fraction] 98 % Jorje Rayo MD Work Phone: [facility] 10-12-2024 15:25-0400 Systolic blood pressure 120 mm[Hg] Jorje Rayo MD Work Phone: [facility] 10-12-2024 15:10-0400 Body temperature 97.9 [degF] Jorje Rayo MD Work Phone: [facility] 10-12-2024 14:31-0400 Body height 157.5 cm Jorje Rayo MD Work Phone: [facility] 10-12-2024 14:31-0400 Body mass index (BMI) [Ratio] 28.17 kg/m2 Jorje Rayo MD Work Phone: [facility] 10-12-2024 14:31-0400 Body weight 69.85 kg Jorje Rayo MD Work Phone: [facility] 08-30-2023 12:10-0400 Diastolic Blood Pressure Non-Invasive 84 mm[Hg] TYRELL YOUNG MD [facility] 08-30-2023 12:10-0400 Heart rate 82 /min TYRELL YOUNG MD [facility] 08-30-2023 12:10-0400 Respiratory rate 18 /min TYRELL YOUNG MD [facility] 08-30-2023 12:10-0400 Systolic Blood Pressure Non-Invasive 166 mm[Hg] TYRELL YOUNG MD [facility] 08-30-2023 11:10-0400 Body temperature 98.06 [degF] TYRELL YOUNG MD [facility] 08-30-2023 11:10-0400 Body weight 70.5 kg TYRELL YOUNG MD [facility] 08-30-2023 11:10-0400 Diastolic Blood Pressure Non-Invasive 107 mm[Hg] TYRELL YOUNG MD [facility] 08-30-2023 11:10-0400 Heart rate 99 /min TYRELL YOUNG MD [facility] 08-30-2023 11:10-0400 Respiratory rate 16 /min TYRELL YOUNG MD [facility] 08-30-2023 11:10-0400 Systolic Blood Pressure Non-Invasive 181 mm[Hg] TYRELL YOUNG MD [facility] 06-14-2022 15:38-0500 Body height 157.5 cm Milly Mead MD Work Phone: [facility] 06-14-2022 15:38-0500 Body weight 75.3 kg Milly Mead MD Work Phone: [facility] 06-14-2022 15:38-0500 Diastolic blood pressure 88 mm[Hg] Milly Mead MD Work Phone: [facility] 06-14-2022 15:38-0500 Heart rate 88 /min Milly Mead MD Work Phone: [facility] 06-14-2022 15:38-0500 Systolic blood pressure 148 mm[Hg] Milly Mead MD Work Phone: [facility] 10-26-2021 11:53-0400 Diastolic blood pressure 73 mm[Hg] Milly Mead MD Work Phone: [facility] 10-26-2021 11:53-0400 Heart rate 67 /min Milly Mead MD Work Phone: [facility] 10-26-2021 11:53-0400 Respiratory rate 16 /min Milly Mead MD Work Phone: [facility] 10-26-2021 11:53-0400 SaO2% (BldA) [Mass fraction] 97 % Milly Mead MD Work Phone: [facility] 10-26-2021 11:53-0400 Systolic blood pressure 162 mm[Hg] Milly Mead MD Work Phone: [facility] 10-26-2021 11:34-0400 Body temperature 97.11 [degF] Milly Mead MD Work Phone: [facility] 10-26-2021 10:29-0400 Body height 157.5 cm Milly Mead MD Work Phone: [facility] 10-26-2021 10:29-0400 Body weight 72.76 kg Milly Mead MD Work Phone: [facility] Encounters Encounter Date Encounter Type Care Provider Facility Start: 04-24-2025 ambulatory Vito Montano Facility:[facility] Start: 03-21-2025 End: 03-21-[address] JESSICA DURON DO Facility:[facility] Start: 03-21-2025 End: 03-21-[address] JESSICA DURON DO [facility] Start: 03-08-2025 End: 03-08-[address] Vito Montano MD -[facility] Work Phone: Start: 03-08-2025 End: 03-08-[address] Juan Pablo Jane DO Work Phone: -[facility] Start: 01-27-2025 End: 01-27-2025 Emergency department patient visit Aron Bender MD Work Phone: [facility] Comment on above: Rectal bleeding (Primary Dx); Wasp sting, accidental or unintentional, initial encounter Start: 12-17-2024 End: 12-17-[address] JESSICA DURON DO Facility:[facility] Start: 12-17-2024 End: 12-17-[address] JESSICA DURON DO [facility] Start: 10-16-2024 End: 10-16-2024 Follow-up encounter Jorje Rayo MD Work Phone: Gastroenterology Start: 10-12-2024 ambulatory JORJE RAYO Facility:[facility] Start: 10-12-2024 End: 10-12-2024 Subsequent hospital visit by physician Jorje Rayo MD Work Phone: Ambulatory Surgery Comment on above: Benign neoplasm of colon, unspecified pa rt of colon [D12.6] Start: 10-08-2024 End: 10-08-2024 Admission to same day surgery center Mynor Villafana MD Work Phone: Ambulatory Surgery Start: 10-08-2024 End: 10-08-2024 ambulatory Mynor Villafana MD Work Phone: Ambulatory Surgery Start: 09-10-2024 End: 09-10-[address] JESSICA DURON DO Facility:[facility] Start: 09-07-2024 End: 09-07-[address] COLE ORR MD Facility:[facility] Start: 08-08-2024 End: 08-08-2024 Telephone encounter Cyrus Powell MD Work Phone: [facility] Comment on above: Screeningcolonoscopychecklist Start: 08-01-2024 End: 10-24-[address] JESSICA DURON DO Facility:[facility] Start: 08-01-2024 End: 10-24-[address] JESSICA DURON DO [facility] Start: 07-27-2024 End: 07-27-[address] JESSICA DURON DO Facility:[facility] Start: 07-27-2024 End: 07-27-[address] JESSICA DURON DO [facility] Start: 03-01-2024 End: 03-01-[address] JESSICA DURON DO [facility] Start: 02-29-2024 End: 02-29-2024 ambulatory HORACIO GOMEZ MD Facility:[facility] Start: 02-29-2024 End: 02-29-2024 Patient encounter procedure HORACIO GOMEZ MD [facility] Start: 02-23-2024 End: 02-23-[address] JESSICA DURON DO Facility:[facility] Start: 02-23-2024 End: 02-23-2024 Patient encounter procedure HORACIO GOMEZ MD [facility] Start: 02-15-2024 End: 02-15-[address] JESSICA DURON DO Facility:[facility] Start: 02-15-2024 End: 02-15-2024 Patient encounter procedure HORACIO OGMEZ MD [facility] Start: 01-10-2024 End: 01-10-[address] JESSICA DURON DO Facility:[facility] Start: 12-19-2023 End: 12-19-[address] JESSICA DURON DO Facility:[facility] Start: 12-19-2023 End: 12-19-[address] COLE ORR MD [facility] Start: 12-16-2023 End: 12-16-[address] JESSICA DURON DO Facility:[facility] Start: 12-16-2023 End: 12-16-[address] JESSICA DURON DO [facility] Start: 09-23-2023 End: 09-23-[address] JESSICA DURON DO Facility:[facility] Start: 09-23-2023 End: 09-23-[address] JESSICA DURON DO [facility] Start: 09-01-2023 End: 09-01-[address] JESSICA DURON DO Facility:[facility] Start: 09-01-2023 End: 09-01-[address] JESSICA DURON DO [facility] Start: 08-30-2023 End: 08-30-2023 Emergency department patient visit TYRELL YOUNG MD [facility] Start: 03-17-2023 End: 03-17-[address] JESSICA DURON DO Facility:[facility] Start: 03-17-2023 End: 03-17-[address] JESSICA DURON DO [facility] Start: 09-24-2022 End: 09-24-[address] JESSICA DURON DO [facility] Start: 07-29-2022 Telephone encounter Milly Mead MD Work Phone: [facility] Comment on above: Patient Question Start: 07-06-2022 Telephone encounter Milly Mead MD Work Phone: [facility] Comment on above: Patient Update Start: 06-14-2022 End: 06-14-2022 Patient encounter procedure Milly Mead MD Work Phone: [facility] Comment on above: Personal history of rectal cancer (Prima ry Dx); History of cholecystectomy; Dyspepsia; Borderline high cholesterol Start: 05-05-2022 Telephone encounter Milly Mead MD Work Phone: [facility] Comment on above: Orders Start: 03-26-2022 End: 03-26-[address] JESSICA DURON DO [facility] Start: 12-11-2021 End: 12-11-[address] JESSICA DURON DO [facility] Start: 10-26-2021 End: 10-26-2021 Subsequent hospital visit by physician Milly Mead MD Work Phone: Ambulatory Surgery Comment on above: History of rectal cancer [Z85.048] Start: 10-19-2021 ambulatory Milly Mead MD Work Phone: Ambulatory Surgery Start: 09-25-2021 End: 09-25-[address] JESSICA DURON DO [facility] Start: 03-26-2021 End: 03-26-[address] JESSICA DURON DO [facility] Procedures Date Procedure Procedure Detail Performing Clinician Start: 01-27-2025 Ct abdomen & pelvis w/contrast material Aron Bender MD Work Phone: Start: 01-27-2025 Comprehensive metabo lic panel Aron Bender MD Work Phone: Start: 10-12-2024 Colonoscopy flx dx w/collj spec when asm Powell MD Work Phone: Start: 10-26-2021 Colon ca scrn not hi rsk ind Cheng Lynn MD Work Phone: Start: 10-26-2021 Colonoscopy Milly sow MD Work Phone: Start: 11-06-2018 Colonoscopy Milly sow MD Work Phone: Start: 10-17-2014 Adult depression screening assessment Milly Mead MD Work Phone: Start: 04-17-2008 Breast surgery (qual ifier value) DR JESSICA DURON DO Comment on above: stereotatic breast B x - Dr. Morales Self Start: 06-06-[address] JESSICA CARTY DO Appendectomy DR JESSICA Gallo DO Cholecystectomy DR JESSICA RAE DO Colostomy DR JESSICA Gallo DO Comment on above: reversed 01/2015 H/O: hysterectomy H/O: hysterectomy Dr. Suzie Jane DO Work Phone: History of cholecystectomy History of cholecystectomy Milly Mead MD Work Phone: History of cholecystectomy History of cholecystectomy Dr. Juan Pablo Jane DO Work Phone: Malignant neoplasm o f colon and/or rectum DR JESSICA DURON DO Comment on above: d/t stage 1 cancer 0 10/2014 Urinary bladder stru cture (body structure) HORACIO GOMEZ MD Comment on above: suspension Plan of Treatment Date Care Activity Detail Author Start: 09-28-2032 DTaP/Tdap/Td Vaccine s (2 - Td or Tdap) DTaP/Tdap/Td Vaccines (2 - Td or Tdap) [facility] Start: 09-28-2032 Urine microalbumin profile DTaP,Tdap,Td Vaccine (2 - Td or Tdap) [facility] Start: 07-22-2027 LIPID SCREEN LIPID SCREEN [facility] Start: 07-22-2025 DIABETES SCREEN DIABETES SCREEN [facility] Start: 07-22-2025 Diabetes Screening Diabetes Screenin g [facility] Start: 02-04-2025 Influenza vaccination [facility] Start: 10-26-2024 Colonoscopy COLONOSCOPY [facility] Start: 10-26-2024 COLORECTAL CANCER SCREENING COLORECTAL CANCER SCREENING [facility] Start: 10-15-2024 End: 10-15-2024 Patient encounter procedure 10/15/2024 9:00 AM EDT Appointment Ambulatory Surgery [address] [facility] [place] [id number] Mynor Villafana MD [address] [place] [address] Benign neoplasm of colon, unspecified part of colon [D12.6] Ambulatory Surgery Comment on above: Benign neoplasm of c olon, unspecified part of colon [D12.6] Start: 10-12-2024 End: 10-12-2024 Patient encounter procedure 10/12/2024 2:45 PM EDT Appointment Ambulatory Surgery [address] [place] [address] Jorje Rayo MD [address] [place] [address] Benign neoplasm of colon, unspecified part of colon [D12.6] Ambulatory Surgery Comment on above: Benign neoplasm of c olon, unspecified part of colon [D12.6] Start: 09-27-2024 End: 09-27-2024 Anesthesia consultation 09/27/2024 11:59 PM EDT Anesthesia Event Ambulatory Surgery [address] [place] [address] Beckie Maier, [employer] PL[employer]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[employer] 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 [address] [place], [place] [id number] Ambulatory Surgery Start: 08-29-2024 Covid-19 Vaccine ( season) Covid-19 Vaccine ( season) [facility] Start: 06-06-2024 Advance Directive Discussion Advance Directive Discussion [facility] Start: 02-05-2024 Covid-19 Vaccine ( season) Covid-19 Vaccine ( season) [facility] Start: 02-05-2024 Influenza vaccination Influenza Vacc ine (#1) [facility] Start: 2023 RSV Vaccine (1 - 1-d ose 75+ series) RSV Vaccine (1 - 1-dose 75+ series) [facility] Start: 06-14-2022 End: 06-14-2023 Basic metabolic 2000 panel - Serum or Plasma BASIC METABOLIC PNL Lab Routine Personal history of rectal cancer History of cholecystectomy Dyspepsia Expected: 06/14/2022, Expires: 06/14/[address] [facility] Work Phone: Comment on above: Expected: 06/14/2022 , Expires: 06/14/2023 Start: 06-14-2022 End: 08-14-2022 Carcinoembryonic Ag [Mass/volume] in Serum or Plasma CEA BLD Lab Routine Personal history of rectal cancer History of cholecystectomy Dyspepsia Expected: 06/14/2022, Expires: 08/14/[address] [facility] Work Phone: Comment on above: Expected: 06/14/2022 , Expires: 08/14/2022 Start: 06-14-2022 End: 06-14-2023 CBC W Auto Differential panel - Blood CBC + DIFF Lab Routine Personal history of rectal cancer History of cholecystectomy Dyspepsia Expected: 06/14/2022, Expires: 06/14/[address] [facility] Work Phone: Comment on above: Expected: 06/14/2022 , Expires: 06/14/2023 Start: 06-14-2022 End: 06-14-2023 Hepatic function 2000 panel - Serum or Plasma HEPATIC FUNCTION PNL Lab Routine Personal history of rectal cancer History of cholecystectomy Dyspepsia Expected: 06/14/2022, Expires: 06/14/[address] [facility] Work Phone: Comment on above: Expected: 06/14/2022 , Expires: 06/14/2023 Start: 06-14-2022 End: 08-14-2022 Lipid 1996 panel - Serum or Plasma LIPID PANEL BASIC Lab Routine Personal history of rectal cancer History of cholecystectomy Dyspepsia Borderline high cholesterol Expected: 06/14/2022, Expires: 08/14/[address] [facility] Work Phone: Comment on above: Expected: 06/14/2022 , Expires: 08/14/2022 Start: 06-06-2022 ADVANCE DIRECTIVE DISCUSSION ADVANCE DIRECTIVE DISCUSSION [facility] Start: 06-06-2022 DEPRESSION ASSESSMENT DEPRESSION ASS ESSMENT [facility] Start: 02-04-2022 Influenza vaccination INFLUENZA (#1) [facility] Start: 11-26-2021 COVID-19 VACCINE (5 - Booster for Moderna series) COVID-19 VACCINE (5 - Booster for Moderna series) [facility] Start: 11-06-2021 Colonoscopy COLONOSCOPY [facility] Start: 11-06-2021 COLORECTAL CANCER SCREENING COLORECTAL CANCER SCREENING [facility] Start: 08-01-2021 COVID-19 VACCINE (4 - Booster for Moderna series) COVID-19 VACCINE (4 - Booster for Moderna series) [facility] Start: 06-06-2021 ADVANCE DIRECTIVE DISCUSSION ADVANCE DIRECTIVE DISCUSSION [facility] Start: 06-06-2021 DEPRESSION ASSESSMENT DEPRESSION ASS ESSMENT [facility] Start: 01-31-2018 DIABETES SCREEN DIABETES SCREEN [facility] Start: 11-05-2015 PNEUMOCOCCAL: 65+ (2 - PCV) PNEUMOCOCCAL: 65+ (2 - PCV) [facility] Start: 10-18-2015 Adult depression screening assessment DEPRESSION SCREENING [facility] Start: 09-26-2014 Shingrix Vaccine (2 of 3) Lundy grix Vaccine (2 of 3) [facility] Start: 09-26-2014 Zoster Vaccines (2 of 3) Zoster Vacc claribel (2 of 3) [facility] Start: 2013 BONE DENSITY BONE DENSITY [facility] Start: 2013 Screening for osteoporosis Bone Density Screening [facility] Start: 1998 SHINGRIX VACCINE (1 of 2) LUNDY GRIX VACCINE (1 of 2) [facility] Start: 1993 COLOGUARD (FIT-DNA) COLOGUARD (FIT-D NA) [facility] Start: [address] COLONOGRAPHY [facility] Start: 1993 FECAL OCCULT BLOOD FECAL OCCULT BLOO D [facility] Start: 1993 LIPID SCREEN LIPID SCREEN [facility] Start: 1993 SIGMOIDOSCOPY SIGMOIDOSCOPY [facility] Start: 1988 Mammography MAMMOGRAM [facility] Start: 1967 Urine microalbumin profile [facility] Start: 1966 Anxiety Screening Anxiety Screening [facility] Start: 1966 Depression Screening Depression Scre ening [facility] Start: 1966 HEPATITIS C SCREENING HEPATITIS C [facility] Start: 1966 Hepatitis C screening Hepatitis C [facility] Start: 1960 Depression Monitoring Depression Mon itoring [facility] Start: 1948 Lipid panel Lipid Panel [facility] Start: 1948 Medicare Annual Well ness (AWV) Medicare Annual Wellness (AWV) [facility] Start: 1948 Screening for osteoporosis Bone Density Scan [facility] End: 08-08-2025 Screening colonoscopy COLONOSCOPY SCREENING Endoscopy Routine Benign neoplasm of colon, unspecified part of colon 1 Occurrences starting 08/08/2024 until 08/08/[address] [facility] Work Phone: Comment on above: 1 Occurrences starti ng 08/08/2024 until 08/08/2025 Tissue Pathology bio psy report [facility] Work Phone: Comment on above: Release Upon Orderin g for 1 Occurrences starting 10/12/2024, 1 completed Only Clini c Only Clin [facility] Immunizations Immunization Date Immunization Notes Care Provider Fa [facility] 03-12-2025 influenza virus vacc ine, unspecified formulation DR JESSICA DURON DO [facility] 09-07-2024 Pneumococcal conjuga te PCV20, polysaccharide [id number] conjugate, adjuvant, PF; Translations: [Prevnar 20] DR JESSICA DURON DO [facility] 03-01-2024 SARS-CoV-2 (COVID-19 ) [id number] DR JESSICA DURON DO [facility] 03-01-2024 influenza, high dose seasonal, preservative-free; Translations: [Fluad PF Prefilled Syringe ] DR JESSICA DURON DO [facility] 03-01-2024 influenza virus vacc ine, unspecified formulation Aron Bender MD Work Phone: [facility] 02-24-2023 influenza virus vacc ine, unspecified formulation TYRELL YOUNG MD [facility] 02-24-2023 RSV vaccine preF3, recombinant TYRELL YOUNG MD [facility] 09-28-2022 tetanus toxoid, redu david diphtheria toxoid, and acellular pertussis vaccine, adsorbed TYRELL YOUNG MD [facility] 03-19-2022 SARS-CoV-2 (CV19)mRNA-1273 bivalent vac TYRELL YOUNG MD [facility] 01-20-2022 influenza virus vacc ine, unspecified formulation DR JESSICA UDRON DO [facility] 10-01-2021 COVID-19, mRNA, LNP- S, PF, 30 mcg/0.3 mL dose; Translations: [[employer] COVID-19 Vaccine (Do Not Dilute)] DR JESSICA DURON DO [facility] 03-31-2021 SARS-CoV-2 (COVID-19 ) mRNA-[address] JESSICA DURON DO [facility] 01-29-2021 influenza virus vacc ine, unspecified formulation DR JESSICA DURON DO [facility] 08-15-2020 SARS-CoV-2 (COVID-19 ) mRNA-[address] JESSICA DURON DO [facility] 07-18-2020 SARS-CoV-2 (COVID-19 ) mRNA-[address] JESSICA DURON DO [facility] 02-25-2020 influenza virus vacc ine, unspecified formulation DR JESSICA DURON DO [facility] 06-06-2019 influenza virus vacc ine, unspecified formulation DR JESSICA DURON DO [facility] 05-05-2019 influenza virus vacc ine, unspecified formulation DR JESSICA DURON DO [facility] 02-20-2019 influenza virus vacc ine, unspecified formulation DR JESSICA DURON DO [facility] 02-14-2018 influenza virus vacc ine, unspecified formulation DR JESSICA DURON DO [facility] 05-05-2017 pneumococcal conjuga te vaccine, [address] JESSICA DURON DO [facility] 11-04-2014 pneumococcal polysaccharide vaccine, [address] JESSICA DURON DO [facility] 08-01-2014 zoster vaccine, live DR LISA DURON DO [facility] 06-06-2014 pneumococcal polysaccharide vaccine, [address] JESSICA DURON DO [facility] 05-05-2014 pneumococcal polysaccharide vaccine, [address] JESSICA DURON DO [facility] Payers Date Payer Category Payer Self-pay [id number] 2024 Medicare supplementa l policy (as second payer) MMO MEDICARE SUPPLEMENT [id number] 2023 Medicare [id number] 2019 Unknown [facility] [id number] 2019-Present [phone] [address] [place] [address] Indemnity [id number] 2019 Unknown [id number] 2018 Private Health Insurance [id number] 2018 Unknown [id number] 2017 Medicare MEDICARE MEDICAR E A AND B [id number] 2017-Present [phone] [place] [address] Medicare [id number] 2017 Medicare [id number] 2013 Medicare [id number] 1948 Unknown [id number] 2.16.840.1.960038.3.579.2 .1950 Unknown [id number] 2.16.840.1.149715.3.579.2 .1948 Unknown [id number] 2.16.840.1.670369.3.579.2 .1948 Unknown [id number] 2.16.840.1.776567.3.579.2 .62 1950 Unknown [id number] 2.16.840.1.234234.3.579.2 .1948 Unknown [id number] 2.16.840.1.471150.3.579.2 .1948 Unknown [id number] 2.16.840.1.919390.3.579.2 .1948 Unknown [id number] 2.16.840.1.595862.3.579.2 .1948 Unknown [id number] 2.16.840.1.427283.3.579.2 .1948 Unknown [id number] 2.16.840.1.895897.3.579.2 .1948 Unknown [id number] 2.16.840.1.364818.3.579.2 1948 Unknown [id number] 2.16.840.1.100820.3.579.2 .627 1948 Unknown [id number] 2.16.840.1.698656.3.579.2 .627 1948 Unknown [id number] 2.16.840.1.636260.3.579.2 .627 1948 Unknown [id number] 2.16.840.1.881808.3.579.2 .627 1950 Unknown [id number] 2.16.840.1.019566.3.579.2 .627 Unknown [id number] Unknown [id number] 2.16.840.1.297303.3.579.2 .462 Unknown [id number] 2.16.840.1.495083.3.579.2 .462 Social History Date Type Detail Facility Start: 03-01-2019 End: 02-15-2025 Never smoked tobacco (finding) [facility] Sex Assigned At [facility] Start: 06-19-2021 End: 10-12-2024 Alcohol intake Current non-drinker of alcohol (finding) [facility] Start: 1950 Sex Assigned At Not on file [facility] Start: 10-16-2021 End: 10-26-2021 Exposure to SARS-CoV-2 (event) Not sure [facility] Start: 10-14-2014 Tobacco use and exposure Smokeless tobacco non-user [facility] Start: 08-09-2014 End: 01-27-2025 Sex Female (finding) [facility] Start: 06-14-2022 End: 07-02-2022 History of Social function [facility] Start: 06-14-2022 End: 07-02-2022 Tobacco use panel [facility] National Score (1-100), lower number is lower risk 74 [facility] Tobacco smoking status DCIS Tobacco smoking consumption unknown [facility] Start: 1950 Sex Assigned At Female [facility] Functional Status Date Assessment Result Facility 08-30-2023 Functional Status Standard Safet y ID band on, Allergy Band on, Call device within reach, Bed in low position, Wheels locked, Upper/Half-Length side-rails up, Bedside Cart Locked, Safety level maintained [facility] 01-31-2015 Are you deaf, or do you have serious difficulty hearing No 01/31/2015 1:46 PM EDT Adenike Contreras RN No [facility] 01-31-2015 Are you blind, or do you have serious difficulty seeing, even when wearing glasses No 01/31/2015 1:46 PM EDT Adenike Contreras RN No [facility] 01-31-2015 Do you have serious difficulty walking or climbing stairs No 01/31/2015 1:46 PM EDT Adenike Contreras RN No [facility] 01-31-2015 Do you have difficul ty dressing or bathing No 01/31/2015 1:46 PM EDT Adenike Contreras, WILFREDO No [facility] 01-31-2015 Because of a physica l, mental, or emotional condition, do you have difficulty doing errands alone such as visiting a physician's office or shopping No 01/31/2015 1:46 PM EDT Adenike Contreras, WILFREDO No [facility] Mental Status Date Assessment Result Facility 08-30-2023 Mental Status Orientation Oriented x 4 [facility] 01-31-2015 Because of a physica l, mental, or emotional condition, do you have serious difficulty concentrating, remembering, or making decisions No 01/31/2015 1:46 PM EDT Adenike Contreras RN No [facility] Clinical Notes 10-26-2021 to 01-27-2025 Discharge InstructionsAron Bender MD - 01/27/2025 1:57 PM Regina Jane RN - 01/27/2025 1:57 PM Regina Jane RN - 01/27/2025 1:57 PM Natan Bender MD - 01/27/2025 1:57 PM EDT Note Date & Type Note Facility 01-27-2025 Hospital Discharg e instructions Aron Bender MD - 01/27/2025 4:38 PM EDT Recommend continue hydrocortisone cream to the sting on your neck. Wash the wound on your right hand and keep it clean and cover it, prescribed doxycycline given your penicillin allergy to prevent infection. Otherwise monitor the rectal bleeding. You stated you have hemorrhoids to try hemorrhoid cream and make sure your stools are soft. You had normal blood counts. If it persists or worsen you should return. Otherwise follow-up with your primary doctor documented in this encounter [facility] 01-27-2025 Emergency department Note EMERGENCY DEPARTMENT ENCOUNTER Pt Name: Fredi Kapoor Birthdate 1950 Date of evaluation: 01/27/2025 ED Provider: Aron Bender MD CHIEF COMPLAINT Chief Complaint Patient presents with Allergic Reaction Abdominal Pain Black or Bloody Stool HISTORY OF PRESENT ILLNESS (Location/Symptom, Timing/Onset, Context/Setting, Quality, Duration, Modifying Factors, Severity) Note limiting factors. I wore appropriate PPE for the entirety of this encounter. HPI Fredi Kapoor is a 74 y.o. who presents to the emergency department with chief complaint of allergic reaction and abdominal pain and bloody stools. Patient states yesterday afternoon she was stung by a wasp on the right side of her neck and her right hand. Later that day her hand had become puffy on the dorsal aspect and she bumped it on something and it cut open. She has mild bleeding. States she has normal movement sensation of the right hand. She has tried Benadryl and topical anti-itch cream but it still itchy to her neck and her hand. Denies fevers chills nausea vomiting. Denies any trouble swallowing or breathing. Denies any tongue lip oral or facial swelling. States overnight she developed lower abdominal cramping nonradiating and has had several episodes of blood per rectum with some clots noted. She has a history of colon cancer s/p resection many years ago and is in remission, had a recent colonoscopy in October and was told everything looked good besides a small polyp. She is not on blood thinners. She denies lightheadedness dizziness. Denies chest pain shortness of breath. Denies any back pain. Other medical history includes hypertension hyperlipidemia CKD and hypothyroidism. She has had a prior cholecystectomy. She states her urination has been normal. Nursing Notes were reviewed. Limitations to history: None Outside historians: None REVIEW OF SYSTEMS Review of Systems Constitutional: Negative for fever. HENT: Negative for trouble swallowing and voice change. Respiratory: Negative for shortness of breath. Gastrointestinal: Positive for abdominal pain and blood in stool. Negative for vomiting. Skin: Positive for wound. Pertinent positives and negatives as per HPI. PAST MEDICAL HISTORY Medical History[1] SURGICAL HISTORY Surgical History[2] CURRENT MEDICATIONS Previous Medications No medications on file ALLERGIES Clindamycin, Codeine, Darvon-n [propoxyphene], Oxycodone, Penicillins, Percocet [oxycodone-acetaminophen], and Sulfa antibiotics FAMILY HISTORY Family History[3] SOCIAL HISTORY Social History[4] SCREENINGS PHYSICAL EXAM ED Triage Vitals [01/27/25 1400] Temp Heart Rate Resp BP 36.9 C (98.5 F) 98 20 (!) 160/82 SpO2 Temp Source Heart Rate Source Patient Position 96 % Temporal Monitor -- BP Location FiO2 (%) -- -- Physical Exam Vitals and nursing note reviewed. Constitutional: General: She is not in acute distress. Appearance: She is well-developed. She is not ill-appearing, toxic-appearing or diaphoretic. HENT: Head: Normocephalic and atraumatic. Mouth/Throat: Mouth: Mucous membranes are moist. Pharynx: Oropharynx is clear. Eyes: General: No scleral icterus. Extraocular Movements: Extraocular movements intact. Conjunctiva/sclera: Conjunctivae normal. Pupils: Pupils are equal, round, and reactive to light. Neck: Comments: There is a very few small indurated area that is tender to the right side of the neck without any signs of infection, no stinger visualized or palpated Cardiovascular: Rate and Rhythm: Normal rate and regular rhythm. Heart sounds: No murmur heard. Pulmonary: Effort: Pulmonary effort is normal. No respiratory distress. Breath sounds: Normal breath sounds. Abdominal: General: There is no distension. Palpations: Abdomen is soft. There is no fluid wave, hepatomegaly, splenomegaly or pulsatile mass. Tenderness: There is abdominal tenderness in the right lower quadrant, suprapubic area and left lower quadrant. There is no right CVA tenderness, left CVA tenderness, guarding or rebound. Hernia: No hernia is present. Musculoskeletal: General: No swelling. Cervical back: Full passive range of motion without pain and neck supple. Skin: General: Skin is warm and dry. Capillary Refill: Capillary refill takes less than 2 seconds. Comments: Superficial laceration over the right dorsal hand with mild soft tissue edema and evidence of bee sting, no obvious cellulitis, normal range of motion of the right wrist hand and fingers with normal cap refill and sensation, compartments soft Neurological: Mental Status: She is alert. Psychiatric: Mood and Affect: Mood normal. DIAGNOSTIC RESULTS Procedures/EKG: EKG was reviewed by myself. Physician EKG interpretation can be found in [facility] (Per Emergency Physician): CT ab pelvis shows no perforated viscus Interpretation per the Radiologist below, if available at the time of this note: CT abdomen pelvis w contrast Final Result No acute abdominopelvic process identified. Other chronic findings as discussed. Report Dictated on Electronically Signed By: José Donald MD Electronically Signed Date/Time: 01/27/2025 4:16 PM EDT ED BEDSIDE ULTRASOUND: Performed by ED Physician - none LABS: Labs Reviewed CBC WITH AUTO DIFFERENTIAL - Abnormal Result Value Auto WBC 10.5 RBC 5.29 (*) Hemoglobin 15.3 Hematocrit 43.5 MCV 82.2 MCH 28.9 MCHC 35.2 RDW 13.3 Platelets 247 MPV 9.3 nRBC 0.0 Neutrophils Relative 78.1 Lymphocytes Relative 12.6 (*) Monocytes Relative 5.5 Eosinophils Relative 2.8 Basophils Relative 0.3 Immature Grans % 0.7 Neutrophils Absolute 8.2 (*) Lymphocytes Absolute 1.3 Monocytes Absolute 0.6 Eosinophils Absolute 0.3 Basophils Absolute 0.0 Immature Grans Absolute 0.1 (*) COMPREHENSIVE METABOLIC PANEL - Normal SODIUM 139 POTASSIUM 3.9 CHLORIDE 104 CARBON DIOXIDE 26 ANION GAP 9 UREA NITROGEN 22 CREATININE 0.92 GLUCOSE 106 CALCIUM 9.4 AST (SGOT) 28 ALT 22 ALKALINE PHOSPHATASE 82 ALBUMIN 4.0 BILIRUBIN, TOTAL 0.5 TOTAL PROTEIN 7.4 eGFR 64.7 LIPASE - Normal LIPASE 25 LACTIC ACID WITH REFLEX - Normal LACTIC ACID 1.0 All other labs were within normal range or not returned as of this dictation. EMERGENCY DEPARTMENT COURSE and DIFFERENTIAL DIAGNOSIS/MDM: Vitals: Vitals: 01/27/25 1400 BP: (!) 160/82 Pulse: 98 Resp: 20 Temp: 36.9 C (98.5 F) TempSrc: Temporal SpO2: 96% 74-year-old female here after wasp sting to the right side of the neck and hand with a superficial laceration to the hand as well as lower abdominal discomfort and bloody stool. Differential was bee sting, local skin reaction, no obvious cellulitis, laceration that is superficial and does not require repair, diverticulitis, colon cancer recurrence. Plan is for labs, lactic acid, CT abdomen pelvis. She declines anything for pain at this time. She states she just finished an antibiotic Z-Yon and steroid for root canal. She states the steroid made her slightly agitated so will defer any steroids at this time. Medical history impacting this visit includes colon cancer. Diagnoses as of 01/27/25 1639 Rectal bleeding Wasp sting, accidental or unintentional, initial encounter Medications iopamidol (Isovue-370) 76 % injection 75 mL (75 mL IntraVENous Given 01/27/25 6274) REVAL: Labs and imaging reviewed and unremarkable. Normal hemoglobin. CT without acute findings. Recommend hydrocortisone cream to the sting on her neck. Will give her doxycycline as she has been allergic to prevent infection or treat developing infection around the wound to the right hand. Otherwise recommend outpatient follow-up with her PCP regarding the rectal bleeding and return if symptoms worsen or concern her. CRITICAL CARE TIME CONSULTS: None PROCEDURES: Unless otherwise noted below, none Procedures Patients symptoms are consistent with sepsis, severe sepsis, or septic shock (If yes use .sepsiscoremeasure): FINAL IMPRESSION 1. Rectal bleeding 2. Wasp sting, accidental or unintentional, initial encounter DISPOSITION Discharge 01/27/2025 04:32:27 PM PATIENT REFERRED TO: [address] [facility] [address] DISCHARGE MEDICATIONS: New Prescriptions DOXYCYCLINE (VIBRAMYCIN) 100 MG CAPSULE Take 1 capsule (100 mg) by mouth 2 times daily for 5 days. Take with at least 8 ounces (large glass) of water, do not lie down for 30 minutes after (Comment: Please note this report has been produced using speech recognition software and may contain errors related to that system including errors in grammar, punctuation, and spelling, as well as words and phrases that may be inappropriate. If there are any questions or concerns please feel free to contact the dictating provider for clarification.) Aron Bender MD (electronically signed) Emergency Medicine Provider [1] History reviewed. No pertinent past medical history. [2] History reviewed. No pertinent surgical history. [3] No family history on file. [4] Social History Socioeconomic History Marital status: Single Aron Bender MD 01/27/25 1634 Pt got stung by a couple of wasps yesterday around 1pm. Had some swelling on her neck and hand that progressively got worse. Pt smacked the swollen hand today on a picnic table today and cut her hand open. Pt also started having abdominal pain today with bloody stools. Pt stated there was blood clots. documented in this encounter [facility] 01-27-2025 Emergency department Triage note Pt got stung by a couple of wasps yesterday around 1pm. Had some swelling on her neck and hand that progressively got worse. Pt smacked the swollen hand today on a picnic table today and cut her hand open. Pt also started having abdominal pain today with bloody stools. Pt stated there was blood clots. [facility] 01-27-2025 Physician Emergency department Note EMERGENCY DEPARTMENT ENCOUNTER Pt Name: Fredi Kapoor Birthdate 1950 Date of evaluation: 01/27/2025 ED Provider: Aron Bender MD CHIEF COMPLAINT Chief Complaint Patient presents with Allergic Reaction Abdominal Pain Black or Bloody Stool HISTORY OF PRESENT ILLNESS (Location/Symptom, Timing/Onset, Context/Setting, Quality, Duration, Modifying Factors, Severity) Note limiting factors. I wore appropriate PPE for the entirety of this encounter. HPI Fredi Kapoor is a 74 y.o. who presents to the emergency department with chief complaint of allergic reaction and abdominal pain and bloody stools. Patient states yesterday afternoon she was stung by a wasp on the right side of her neck and her right hand. Later that day her hand had become puffy on the dorsal aspect and she bumped it on something and it cut open. She has mild bleeding. States she has normal movement sensation of the right hand. She has tried Benadryl and topical anti-itch cream but it still itchy to her neck and her hand. Denies fevers chills nausea vomiting. Denies any trouble swallowing or breathing. Denies any tongue lip oral or facial swelling. States overnight she developed lower abdominal cramping nonradiating and has had several episodes of blood per rectum with some clots noted. She has a history of colon cancer s/p resection many years ago and is in remission, had a recent colonoscopy in October and was told everything looked good besides a small polyp. She is not on blood thinners. She denies lightheadedness dizziness. Denies chest pain shortness of breath. Denies any back pain. Other medical history includes hypertension hyperlipidemia CKD and hypothyroidism. She has had a prior cholecystectomy. She states her urination has been normal. Nursing Notes were reviewed. Limitations to history: None Outside historians: None REVIEW OF SYSTEMS Review of Systems Constitutional: Negative for fever. HENT: Negative for trouble swallowing and voice change. Respiratory: Negative for shortness of breath. Gastrointestinal: Positive for abdominal pain and blood in stool. Negative for vomiting. Skin: Positive for wound. Pertinent positives and negatives as per HPI. PAST MEDICAL HISTORY Medical History[1] SURGICAL HISTORY Surgical History[2] CURRENT MEDICATIONS Previous Medications No medications on file ALLERGIES Clindamycin, Codeine, Darvon-n [propoxyphene], Oxycodone, Penicillins, Percocet [oxycodone-acetaminophen], and Sulfa antibiotics FAMILY HISTORY Family History[3] SOCIAL HISTORY Social History[4] SCREENINGS PHYSICAL EXAM ED Triage Vitals [01/27/25 1400] Temp Heart Rate Resp BP 36.9 C (98.5 F) 98 20 (!) 160/82 SpO2 Temp Source Heart Rate Source Patient Position 96 % Temporal Monitor -- BP Location FiO2 (%) -- -- Physical Exam Vitals and nursing note reviewed. Constitutional: General: She is not in acute distress. Appearance: She is well-developed. She is not ill-appearing, toxic-appearing or diaphoretic. HENT: Head: Normocephalic and atraumatic. Mouth/Throat: Mouth: Mucous membranes are moist. Pharynx: Oropharynx is clear. Eyes: General: No scleral icterus. Extraocular Movements: Extraocular movements intact. Conjunctiva/sclera: Conjunctivae normal. Pupils: Pupils are equal, round, and reactive to light. Neck: Comments: There is a very few small indurated area that is tender to the right side of the neck without any signs of infection, no stinger visualized or palpated Cardiovascular: Rate and Rhythm: Normal rate and regular rhythm. Heart sounds: No murmur heard. Pulmonary: Effort: Pulmonary effort is normal. No respiratory distress. Breath sounds: Normal breath sounds. Abdominal: General: There is no distension. Palpations: Abdomen is soft. There is no fluid wave, hepatomegaly, splenomegaly or pulsatile mass. Tenderness: There is abdominal tenderness in the right lower quadrant, suprapubic area and left lower quadrant. There is no right CVA tenderness, left CVA tenderness, guarding or rebound. Hernia: No hernia is present. Musculoskeletal: General: No swelling. Cervical back: Full passive range of motion without pain and neck supple. Skin: General: Skin is warm and dry. Capillary Refill: Capillary refill takes less than 2 seconds. Comments: Superficial laceration over the right dorsal hand with mild soft tissue edema and evidence of bee sting, no obvious cellulitis, normal range of motion of the right wrist hand and fingers with normal cap refill and sensation, compartments soft Neurological: Mental Status: She is alert. Psychiatric: Mood and Affect: Mood normal. DIAGNOSTIC RESULTS Procedures/EKG: EKG was reviewed by myself. Physician EKG interpretation can be found in [facility] RAD[facility] (Per Emergency Physician): CT ab pelvis shows no perforated viscus Interpretation per the Radiologist below, if available at the time of this note: CT abdomen pelvis w contrast Final Result No acute abdominopelvic process identified. Other chronic findings as discussed. Report Dictated on Electronically Signed By: José Donald MD Electronically Signed Date/Time: 01/27/2025 4:16 PM EDT ED BEDSIDE ULTRASOUND: Performed by ED Physician - none LABS: Labs Reviewed CBC WITH AUTO DIFFERENTIAL - Abnormal Result Value Auto WBC 10.5 RBC 5.29 (*) Hemoglobin 15.3 Hematocrit 43.5 MCV 82.2 MCH 28.9 MCHC 35.2 RDW 13.3 Platelets 247 MPV 9.3 nRBC 0.0 Neutrophils Relative 78.1 Lymphocytes Relative 12.6 (*) Monocytes Relative 5.5 Eosinophils Relative 2.8 Basophils Relative 0.3 Immature Grans % 0.7 Neutrophils Absolute 8.2 (*) Lymphocytes Absolute 1.3 Monocytes Absolute 0.6 Eosinophils Absolute 0.3 Basophils Absolute 0.0 Immature Grans Absolute 0.1 (*) COMPREHENSIVE METABOLIC PANEL - Normal SODIUM 139 POTASSIUM 3.9 CHLORIDE 104 CARBON DIOXIDE 26 ANION GAP 9 UREA NITROGEN 22 CREATININE 0.92 GLUCOSE 106 CALCIUM 9.4 AST (SGOT) 28 ALT 22 ALKALINE PHOSPHATASE 82 ALBUMIN 4.0 BILIRUBIN, TOTAL 0.5 TOTAL PROTEIN 7.4 eGFR 64.7 LIPASE - Normal LIPASE 25 LACTIC ACID WITH REFLEX - Normal LACTIC ACID 1.0 All other labs were within normal range or not returned as of this dictation. EMERGENCY DEPARTMENT COURSE and DIFFERENTIAL DIAGNOSIS/MDM: Vitals: Vitals: 01/27/25 1400 BP: (!) 160/82 Pulse: 98 Resp: 20 Temp: 36.9 C (98.5 F) TempSrc: Temporal SpO2: 96% 74-year-old female here after wasp sting to the right side of the neck and hand with a superficial laceration to the hand as well as lower abdominal discomfort and bloody stool. Differential was bee sting, local skin reaction, no obvious cellulitis, laceration that is superficial and does not require repair, diverticulitis, colon cancer recurrence. Plan is for labs, lactic acid, CT abdomen pelvis. She declines anything for pain at this time. She states she just finished an antibiotic Z-Yon and steroid for root canal. She states the steroid made her slightly agitated so will defer any steroids at this time. Medical history impacting this visit includes colon cancer. Diagnoses as of 01/27/25 1639 Rectal bleeding Wasp sting, accidental or unintentional, initial encounter Medications iopamidol (Isovue-370) 76 % injection 75 mL (75 mL IntraVENous Given 01/27/25 7316) REVAL: Labs and imaging reviewed and unremarkable. Normal hemoglobin. CT without acute findings. Recommend hydrocortisone cream to the sting on her neck. Will give her doxycycline as she has been allergic to prevent infection or treat developing infection around the wound to the right hand. Otherwise recommend outpatient follow-up with her PCP regarding the rectal bleeding and return if symptoms worsen or concern her. CRITICAL CARE TIME CONSULTS: None PROCEDURES: Unless otherwise noted below, none Procedures Patients symptoms are consistent with sepsis, severe sepsis, or septic shock (If yes use .sepsiscoremeasure): FINAL IMPRESSION 1. Rectal bleeding 2. Wasp sting, accidental or unintentional, initial encounter DISPOSITION Discharge 01/27/2025 04:32:27 PM PATIENT REFERRED TO: [address] [facility] [address] DISCHARGE MEDICATIONS: New Prescriptions DOXYCYCLINE (VIBRAMYCIN) 100 MG CAPSULE Take 1 capsule (100 mg) by mouth 2 times daily for 5 days. Take with at least 8 ounces (large glass) of water, do not lie down for 30 minutes after (Comment: Please note this report has been produced using speech recognition software and may contain errors related to that system including errors in grammar, punctuation, and spelling, as well as words and phrases that may be inappropriate. If there are any questions or concerns please feel free to contact the dictating provider for clarification.) Aron Bender MD (electronically signed) Emergency Medicine Provider [1] History reviewed. No pertinent past medical history. [2] History reviewed. No pertinent surgical history. [3] No family history on file. [4] Social History Socioeconomic History Marital status: Single Aron Bender MD 01/27/[address] [facility] 10-12-2024 Note HNO ID: [id number] Author: RIMMA COLÓN RN Service: ? Author Type: Registered Nurse Type: Nursing Progress Note Filed: 10/12/2024 15:53 Note Text: Physician at bedside to discuss procedure/findngs with patient. [facility] 10-12-2024 Nurse Note Physician at bedside to discuss procedure/findngs with patient. [facility] 10-12-2024 Nurse Note Physician at bedside to discuss procedure/findngs with patient. documented in this encounter [facility] 10-12-2024 Note Formatting of this n ote might be different from the original. The patient received a copy of Colonoscopy discharge instructions that contain information for how to contact the physician who performed the procedure and when to seek medical care. [facility] 10-12-2024 Miscellaneous Notes The patient received a copy of Colonoscopy discharge instructions that contain information for how to contact the physician who performed the procedure and when to seek medical care. documented in this encounter [facility] 10-12-2024 History and physical note HISTORY AND PHYSICAL Fredi Kapoor, 74 year old female Current history and physical on file: Yes Is a new History and Physical required for today's visit? Yes Indication for procedure: History of Colon Cancer PROCEDURE(S) SCHEDULED FOR: Colonoscopy with or without biopsies and with or without removal of polyps or lesions, dilation (any means), treatment of bleeding (any means), based on clinical findings. BASELINE BEHAVIOR: Calm BASELINE ORIENTATION: A & O x3 All medications and allergies reviewed: Yes Skin Assessment: Warm dry mucus membranes pink Airway/Respiratory Assessment: Airway: visualization of the uvula- Yes Mouth: opening greater than 2 fingerbreadths- Yes Neck: full range of motion- Yes Breath sounds clear/equal- Yes Cardiac Assessment: Regular rate and rhythm without murmur Abdominal Assessment: Abdomen soft, non-tender, no masses or organomegaly. Sedation Plan: MAC Additional Comments: None Jorje Rayo MD [facility] Work Phone: 10-12-2024 History and physical note HISTORY AND PHYSICAL Fredi Kapoor, 74 year old female Current history and physical on file: Yes Is a new History and Physical required for today's visit? Yes Indication for procedure: History of Colon Cancer PROCEDURE(S) SCHEDULED FOR: Colonoscopy with or without biopsies and with or without removal of polyps or lesions, dilation (any means), treatment of bleeding (any means), based on clinical findings. BASELINE BEHAVIOR: Calm BASELINE ORIENTATION: A & O x3 All medications and allergies reviewed: Yes Skin Assessment: Warm dry mucus membranes pink Airway/Respiratory Assessment: Airway: visualization of the uvula- Yes Mouth: opening greater than 2 fingerbreadths- Yes Neck: full range of motion- Yes Breath sounds clear/equal- Yes Cardiac Assessment: Regular rate and rhythm without murmur Abdominal Assessment: Abdomen soft, non-tender, no masses or organomegaly. Sedation Plan: MAC Additional Comments: None Jorje Rayo MD documented in this encounter [facility] 08-08-2024 Instructions Gabriela Martinez - 08/08/2024 4:48 PM EST COLONOSCOPY BOWEL PREPARATION INSTRUCTIONS GOLYTELY/NULYTELY/TRILYTE/COLYTE Your doctor has scheduled you for a colonoscopy. To have a successful colonoscopy, you must have a clean colon, that is empty. A clean colon allows your doctor to see the entire colon & diagnose issues like polyps or cancer. For doctors, a clean colon is like driving on a lazaro day; a dirty colon like driving in a storm. It is very important that you follow these instructions exactly, or your colonoscopy might not be as effective, could be canceled, and you may need to do the bowel prep and the colonoscopy again. TRANSPORTATION REQUIREMENTS You are receiving IV sedation. For your safety, a responsible adult escort must accompany you to and from your procedure: Your adult escort MUST be present with you at check-in for your colonoscopy. Your adult escort MUST remain in the endoscopy area until you are discharged. Your adult escort MUST transport you home once you are discharged. You are NOT allowed to operate any form of transportation (i.e. drive a car, bicycle, etc.) or leave the Endoscopy Center ALONE. It is not safe to do so. If you cannot meet these requirements, your procedure will be canceled. MEDICATION REQUIREMENTS For your safety, certain medications will need to be stopped or adjusted before you can have your procedure: BLOOD THINNERS: If you take blood thinners, such as Coumadin (warfarin), Plavix (clopidogrel), Ticlid (ticlopidine hydrochloride), Agrylin (anagrelide), Xarelto (Rivaroxaban), Pradaxa (Dabigatran), Eliquis (Apixaban), or Effient (Prasugrel), contact the physician who is prescribing these medications at least 2 weeks prior to your procedure to discuss any necessary adjustments. DIABETES: If you take medications for diabetes, your dosage may need to be adjusted. If you are being treated for diabetes with insulin, diabetic pills, or other injectable medications do not take your REGULAR dose after midnight on the day of your procedure. If you are taking any other types of insulin such as Lantus, Humalog, NPH (long-acting insulin), or 70/30 insulin, take half your normal dose the day before your procedure. DIABETES/WEIGHT MANAGEMENT: If you take medications for weight-loss, your dosage may need to be adjusted Contact the doctor who prescribes this medication for further instructions. If you take medications for weight-loss like semaglutide (Ozempic, Wegovy, Rybelsus), dulaglutide (Trulicity), liraglutide (Victoza, Saxenda), exenatide (Byetta, Bydureon), or lixisenatide (Adylyxin), stop your medication 1 week prior to your procedure. If you take medications like canagliflozin (Invokana), dapagliflozin (Farxiga, Forxiga), empagliflozin (Jardiance), stop your medication 3 days prior to your procedure. If you take ertugliflozin (Steglatro) stop your medication 4 days prior to your procedure. IRON: If you take iron pills, STOP them 1 week BEFORE your procedure, may resume after. OTHER MEDS: May take all other medications (including aspirin, antibiotics, water pills / diuretics like Lasix or Metolozone, blood pressure meds, etc.) at their usual scheduled time with a sip of water. DIET REQUIREMENTS The day before your colonoscopy, you may have a clear liquid diet (see below). The day of your colonoscopy, you may continue a clear liquid diet until 3 hours before your colonoscopy. Within 3 hours of your colonoscopy, take only any medications (as above) with a sip of water. Clear Liquid Diet Broth (chicken, beef or vegetable broth or bullion. Just the broth, no solids). Water Coffee or Tea (NO milk or creamer), but sugar and sugar substitutes are allowed. Clear liquids including clear, yellow, green, blue (NO red, NO orange, NO purple) Sodas / soft drinks Gatorade or other sports drinks Cj-Aid or flavored drinks Plain Jell-O or other gelatins Fruit juice (strained; no-pulp) Popsicles or hard candy BOWEL PREPARATION (GOLYTELY/NULYTELY/TRILYTE/COLYT E) Split Dosing Bowel Prep: This means drinking your bowel prep in two doses. Split dosing helps clean your colon better and makes it less likely that your procedure will be canceled. Fill your prescription for Golytely/Nulytely/Trilyte/Colyte : The afternoon before your colonoscopy, mix the solution and refrigerate. You may add the flavor pack (if present) that came with the bowel preparation. Do not add ice, sugar, or other flavorings to the solution. You will drink your prep in two doses, by several hours. On the evening before your colonoscopy: 1. 6 PM drink the first half of the bowel preparation solution. Drink one 8-ounce glass every 15 minutes. 2. Six hours before your colonoscopy, drink the second half of the solution. Drink one 8-ounce glass every 15 minutes. 3. You may continue a clear liquid diet until 3 hours before your colonoscopy. Bowel prep can work differently from person to person. Some people's bowels move slowly and they may need different instructions. Please see your doctor in office or virtually for personalized bowel prep instructions if you have: Medical condition that needs special accommodations Had a poor bowel prep results or failed bowel prep attempts in the past. Had difficulty with anesthesia during the procedure. FREQUENTLY ASKED QUESTIONS Q: What if I suffer from constipation? A: Recommend taking extra laxatives to resolve your constipation days prior to entering the bowel prep day. Q: What if have had prior poor preps results in past? A: Contact your physician as you will likely need additional bowel prep instructions. Q: What if I have motility issues like Parkinson's, MS (multiple sclerosis), wheelchair dependent, etc.? or on medications that slow bowel emptying (narcotics, gabapentin, anticholinergic medications etc.) A: Contact your physician as you will likely need extra time and additional laxatives to complete your bowel prep. Q: What if I cannot drink large volume of liquid? A: Start your prep 2-3 hours earlier to allow yourself more time to complete the entire prep. Q: What if I can't finish my bowel prep? A: If you cannot finish your entire bowel prep, it is likely that your colonoscopy will need to be rescheduled due to poor prep quality. Q: What if I had bariatric surgery? Do I still have to complete the entire prep? A: Yes, gastric bypass surgery involves the stomach & small bowel. You may need to drink smaller amounts, slower (may need more time to complete your bowel prep). Gastric bypass does not alter the length of your colon so you will need to complete the entire bowel prep, it may just take longer time to complete it. Q: What if I am on dialysis? A: Please consult your hoisting laborer prior to scheduling to get instructions pertinent to you. In general, dialysis patients take the [employer] Pictures[employer]ely bowel prep and have the procedure same day of their dialysis (colonoscopy in AM, dialysis in PM). Q: How do I know if something is considered as clear liquid diet? A: If you can pour it in a glass and you can see through it, it is considered clear liquid Q: Can I eat nuts, seeds, beans, popcorn, dried fruits, vegetables & fruits that have skin peel? A: No, you will need to not eat these items starting 3 days prior to procedure. Q: Can I take Uber/Lyft/taxi/bus home? A: An adult MUST be present with you at check-in for your colonoscopy and remain in the endoscopy area until you are discharged. You can take Uber home only if this adult escort is with you at check in, remain in the endoscopy area until you are discharged, and takes the Uber with you to home. Q: Can I sleep it off here and drive myself home? A: No, you must have an adult with you at time of procedure check in, remain in the endoscopy center during your procedure, and drive you home. You cannot drive a vehicle after your procedure the rest of the day. documented in this encounter [facility] 08-08-2024 Telephone encounter Note Indication: HIGH RISK SCREENING COLONOSCOPY Personal History Colon polyps? Yes Colon cancer? No (Rectal cancer yes) Crohn's Disease? No Ulcerative Colitis? No If any answers are a yes, pt is HIGH RISK SCREENING Family History Colon polyps? No Colon cancer? No If any answers are a yes, pt is HIGH RISK SCREENING Height: 5'2 Weight: 156 BMI: 28.5 (If BMI over 45, can't be scheduled in [place], If BMI is 40-45, must schedule an airway check prior to scheduling in [place]) Tracheostomy new or old No If yes, schedule at hospital Any surgery or radiation to the head or neck? No If can't move neck side to side & up and down, schedule at hospital. Radiation to neck or head automatically gets scheduled at hospital Implanted defibrillator (ACD)? No If yes, schedule at hospital Have you ever been told you were difficult to intubate? No If yes, schedule at hospital Allergies: Latex, Adhesives, or Medication? Hxlegobyxyf-Lnmzyeifhmjh-yun reaction; none to latex or adhesives If anaphylactic reaction to latex, schedule at hospital Recent stroke or cardiac event in the past 6 months? No (ex: heart attack or stent placement). If yes, schedule 6 months after cardiac event. Are you insulin dependent? Are your sugars in control? Ask what BS is running. No If controlled sugars needs scheduled in early AM, If uncontrolled sugars and are over 250 needs to be scheduled at hospital. Are you on any weight loss/diabetic medications (injectable or oral)? No If yes, please have pt contact prescribing physician about stopping med prior to procedure. On oxygen at home? No If yes, give to SALES TEAM MEMBER to evaluate. Chest pain or shortness of breath on exertion? No If yes, give to SALES TEAM MEMBER to evaluate. Any kidney/liver disease or on dialysis? No If cirrhosis pt., have SALES TEAM MEMBER review chart History of COPD/Emphysema/Asthma/or Sleep Apnea? No If uses an inhaler, have pt bring inhaler with them. On any blood thinners? No (Coumadin, Plavix, ASA, Xarelto, Brilinta, Eliquis, Pradaxa, Efficent etc.) If yes, have patient contact prescribing physician about stopping prior to procedure. Do you have a history of seizures? No If yes, when was last seizure? [facility] 08-08-2024 Miscellaneous Notes Indication: HIGH RISK SCREENING COLONOSCOPY Personal History Colon polyps? Yes Colon cancer? No (Rectal cancer yes) Crohn's Disease? No Ulcerative Colitis? No If any answers are a yes, pt is HIGH RISK SCREENING Family History Colon polyps? No Colon cancer? No If any answers are a yes, pt is HIGH RISK SCREENING Height: 5'2 Weight: 156 BMI: 28.5 (If BMI over 45, can't be scheduled in [place], If BMI is 40-45, must schedule an airway check prior to scheduling in [place]) Tracheostomy new or old No If yes, schedule at hospital Any surgery or radiation to the head or neck? No If can't move neck side to side & up and down, schedule at hospital. Radiation to neck or head automatically gets scheduled at hospital Implanted defibrillator (ACD)? No If yes, schedule at hospital Have you ever been told you were difficult to intubate? No If yes, schedule at hospital Allergies: Latex, Adhesives, or Medication? Hnlgxcmuwqp-Jhudhzcgzrqi-rxq reaction; none to latex or adhesives If anaphylactic reaction to latex, schedule at hospital Recent stroke or cardiac event in the past 6 months? No (ex: heart attack or stent placement). If yes, schedule 6 months after cardiac event. Are you insulin dependent? Are your sugars in control? Ask what BS is running. No If controlled sugars needs scheduled in early AM, If uncontrolled sugars and are over 250 needs to be scheduled at hospital. Are you on any weight loss/diabetic medications (injectable or oral)? No If yes, please have pt contact prescribing physician about stopping med prior to procedure. On oxygen at home? No If yes, give to SALES TEAM MEMBER to evaluate. Chest pain or shortness of breath on exertion? No If yes, give to SALES TEAM MEMBER to evaluate. Any kidney/liver disease or on dialysis? No If cirrhosis pt., have SALES TEAM MEMBER review chart History of COPD/Emphysema/Asthma/or Sleep Apnea? No If uses an inhaler, have pt bring inhaler with them. On any blood thinners? No (Coumadin, Plavix, ASA, Xarelto, Brilinta, Eliquis, Pradaxa, Efficent etc.) If yes, have patient contact prescribing physician about stopping prior to procedure. Do you have a history of seizures? No If yes, when was last seizure? documented in this encounter [facility] 02-23-2024 Note ORIGINAL EXAMINATION: CT UROGRAM 02/23/2024 8:13 am TECHNIQUE: CT of the abdomen and pelvis was performed before and after the administration of intravenous contrast as per CT urogram protocol. Multiplanar reformatted images as well as MIP urogram images are provided for review. Dose modulation, iterative reconstruction, and/or weight based adjustment of the mA/kV was utilized to reduce the radiation dose to as low as reasonably achievable. COMPARISON: Renal ultrasound 12/19/2023. HISTORY: ORDERING SYSTEM PROVIDED HISTORY: Colorectal carcinoma 10 years ago status post colostomy and reversal, cholecystectomy, hysterectomy, bladder suspension. Reason for Exam: Bilateral hydronephrosis on renal US done at [facility], kidney stones. FINDINGS: Bibasilar dependent atelectasis and pleuroparenchymal scarring. Small hiatal hernia. Gall bladder: Surgically absent. Mild dilated common bile duct and left intrahepatic biliary ducts are likely sequelae of prior cholecystectomy. Stable tiny right hepatic lobe cyst (series 3, image 10). Liver is normal in size and contour. Spleen, pancreas and adrenal glands are unremarkable. Kidneys are symmetric in size and enhancement without hydronephrosis or urolithiasis. Subcentimeter right renal cyst. Small bilateral extrarenal pelves. Ureters and urinary bladder are well opacified with contrast. There is no evidence of urothelial thickening, filling defect or mass within the collecting system. Uterus is surgically absent. No adnexal mass. Postsurgical changes within the small bowel in mid lower abdomen. Small bowel and colon are normal in caliber. No bowel obstruction. Appendix is not seen. No definite intraperitoneal free air or focal fluid collection. No abdominal or pelvic lymphadenopathy. Nonaneurysmal atherosclerotic aorto-iliac arteries. No acute fracture or destructive osseous lesion. Multilevel moderate degenerative changes in the spine are most predominant at L2-3, L3-4. Mild degenerative retrolisthesis L2 on L3. Grade 1 degenerative anterolisthesis L4 on L5. Transitional lumbosacral vertebral body present. Moderate degenerative changes at the pubic symphysis. Small fat containing umbilical and bilateral inguinal hernias. IMPRESSION: No acute findings within abdomen or pelvis. No stone disease or hydronephrosis. No evidence of urothelial thickening, filling defect or mass within the collecting system. Other chronic and incidental findings as above. I have personally reviewed the images of this examination and agree with the resident's finding and interpretation. RECOMMENDATIONS: Subcentimeter right Bosniak I benign renal cyst. No follow-up imaging is recommended. JACR 2017; [id number], Management of the Incidental Renal Mass on CT, [employer] 2020; [id number], Bosniak Classification of Cystic Renal Masses, Version 2019. Interpreted by: Morales Law Preliminary Report By: Maryana Diaz Electronically signed By Morales Law Dictated Date: 02/23/2024 10:42:25 AM Prelim Date: 02/23/2024 2:34:53 PM Sign Date: 02/23/2024 2:34:53 PM Ordering Provider: [facility] 12-16-2023 Note ORIGINAL EXAMINATION: BONE DENSITOMETRY12/16/2023 10:47 am TECHNIQUE: Dual energy bone densitometry lumbar spine and left hip. COMPARISON: 12/11/2021 HISTORY: Reason for Exam: screening Osteoporosis screening. FINDINGS: T Score Left Femoral Neck: -2.5 Left Femoral Neck: 0.576 (g/cm2) T Score Left Hip: -1.9 Left Hip: 0.715 (g/cm2) T Score Lumbar Spine: 0.3 Lumbar Spine: 1.085 (g/cm2) BMD Change from previous Hip:-3.0% BMD Change from previous Lumbar Spine: +3.4%, significant FRAX score: Not calculated. The BHOF f/k/a NOF recommends that FDA-approved medical therapies be considered in post-menopausal women and men age >/= 50 years with a: * Hip or vertebral fracture, or * T-score of /= 20% for major osteoporotic fractures or * >/= 3% for hip fractures All treatment decisions require clinical judgement and consideration of individual patient factors, including patient preferences, comorbidities, previous drug use, risk factors not captured in the FRAX registered model (e.g., frailty, falls, vitamin D deficiency, increased bone turnover, interval significant decline in bone density) and possible under- or over-estimation of fracture risk by FRAX. IMPRESSION: Osteoporosis. Interpreted by: Michael Villegas MD Preliminary Report By: Michael Villegas MD Electronically signed By Michael Villegas MD Dictated Date: 12/16/2023 3:20:54 PM Prelim Date: 12/16/2023 3:22:56 PM Sign Date: 12/16/2023 3:22:56 PM Ordering Provider: JESSICA DURON [facility] 12-16-2023 Note ORIGINAL FROM: [place] [id number] PROCEDURE FOR: FREDI KAPOOR [address] [place] [address] Home: PID#: [id number] Exam#: [id number] : 1950 Age: 73 TO: JESSICA DURON [place] [address] Fax: NO FAX EXAMINATION: SCREENING DIGITAL BILATERAL MAMMOGRAM WITH TOMOSYNTHESIS, 12/16/2023 10:04 am TECHNIQUE: Screening mammography of the bilateral breasts was performed with tomosynthesis. 2D standard and 3D tomosynthesis combination imaging performed through both breasts in the MLO and CC projection. Computer aided detection was utilized in the interpretation of this exam. COMPARISON: Mammograms 12/14/2022, 12/11/2021, 11/24/2020, and 11/16/2019. HISTORY: Breast cancer screening. FINDINGS: BREAST DENSITY: Scattered fibroglandular tissue There is a biopsy marker clip in the left breast. There are benign appearing calcifications in both breasts. There are no significant masses or calcifications. IMPRESSION: No mammographic evidence of malignancy. Continued screening with annual mammograms is recommended. Michael Mitchellck risk calculations, generated with the history provided, report this patient's 10 year risk and lifetime risk for developing breast cancer at 1.4% and 1.4%, respectively. Based on this assessment tool, if the patient's calculated lifetime risk is below 20%, then the patient is considered at average risk for developing breast cancer. If the patient's calculated lifetime risk is at or above 20%, then the patient is considered high risk for developing breast cancer and may be a candidate for supplemental breast MRI screening in addition to annual mammographic screening per the [place] [employer]. I have personally reviewed the images of this examination and agree with the resident's findings and interpretation. BIRADS: MAMMOGRAM BI-RADS: 2: Benign finding RECALL: 1 year screening RECALL TYPE: mammo LETTER SENT: Normal BI-RADS 1 and 2 Interpreted by: Aron Villasenor MD Preliminary Report By: Mimi Hernandez Electronically signed By Aron Villasenor MD Dictated Date: 12/16/2023 11:41:31 AM Prelim Date: 12/16/2023 12:53:07 PM Sign Date: 12/16/2023 12:53:07 PM Ordering Provider: JESSICA DURON Cremator: JHON JOYA RT(R)(M)(CT) AFTERNOON NANNY letter sent: Normal BI-RADS 1 and 2 Mammogram BI-RADS: 2 Benign [facility] 09-23-2023 Note ORIGINAL NM MYOCARDIAL SPECT STRESS/REST CLINICAL STATEMENT:New onset hypertension, chest pain TECHNIQUE: Stress Protocol:Shaheen Time Exercised:6:15minutes Predicted Max HR:145 Max HR Achieved:146 Percent Max HR:100 Peak Systolic BP:160 Rate-Pressure product: 20,600 Radiopharmaceutical(rest): Tc-99m Sestamibi IV Dose:31.5 mCi Radiopharmaceutical(stress): Tc-99m Sestamibi IV Dose:10.4 mCi SPECT acquisition:SPECT reconstruction and reorientation into short axis, vertical and horizontal long axis planes Quantitative LVEF assessment COMPARISON:None REPORT:Rotating planar images demonstrate significant tracer uptake in rest images. SPECT perfusion images demonstrate homogeneous tracer uptake in stress images. Rest images do not show any significant perfusion defect but presence of extracardiac activity limits the study quality in rest images. Tid ratio within normal limits. Gated SPECT images demonstrate normal wall motion and wall thickening. End-diastolic volume is 77ml. Ejection fraction is 63%. This could be underestimated due to the extracardiac activity. IMPRESSION: 1. No evidence of ischemia are prior infarction 2. Normal systolic function with ejection fraction of 63%. 3. No prior studies for comparison. Interpreted By: Neli Conley MD Preliminary Report By: Neli Conley MD Electronically Signed By: Neli Conley MD Dictated Date: 09/23/2023 1:29:45 PM Prelim Date: 09/23/2023 1:29:45 PM Sign Date: 09/23/2023 1:32:39 PM Ordering Provider:Jessica Duron [facility] 09-23-2023 Note Exam Date Time Procedure Performing Provider Status 09/23/23 7:47 AM Echocardiogram, Adult - CV Auth (Verified) [facility] 03-26-2024 Hospital Discharge instructions Patient Education 08/30/2023 12:22:52 Hypertension, To Be Confirmed High Blood Pressure, To Be Confirmed, No Treatment Your blood pressure today was higher than normal. Sometimes anxiety or pain can cause a temporary rise in blood pressure. It later returns to normal. Blood pressure that is high only one time doesn tmean that you have high blood pressure (hypertension). High blood pressure is a chronic illness. But you should have your blood pressure measured again within the next few days to find out if it s still high. Blood pressure measurements are given as 2 numbers. Systolic blood pressure is the upper number. This is the pressure when the heart contracts. Diastolic blood pressure is the lower number. This is the pressure when the heart relaxes between beats. You will see your blood pressure readings written together. For example, a person with a systolic pressure of 118 and a diastolic pressure of 78 will have 118/78 written in the medical record. Blood pressure is categorized as normal, elevated, or stage 1 or stage 2 high blood pressure: Normal blood pressure is systolic of less than 120 and diastolic of less than 80 (120/80) Elevated blood pressure is systolic of 120 to 129 and diastolic less than 80 Stage 1 high blood pressure is systolic is 130 to 139 or diastolic between 80 to 89 Stage 2 high blood pressure is when systolic is 140 or higher or the diastolic is 90 or higher Lifestyle changes such as weight loss, exercise, and quitting smoking, can help manage your blood pressure. Have your blood pressure checked regularly to be sure it is under control. Home care To track your blood pressure, your provider may ask you to come into the office at different times and on different days. If your healthcare provider asks you to check your readings at home, ask him or her what times of the day to test and for how many days. Before you leave the office, ask your provider to show you how to take your blood pressure and be sure to ask questions if you don't understand something. Consider buying an automatic blood pressure monitor. Ask your provider for a recommendation as wellas the proper size cuff to fit your arm. You can buy blood pressure monitors at most pharmacies. The [place] [employer] recommends the following guidelines for home blood pressure monitoring: Don't smoke or drink coffee or other caffeinated drinks for 30 minutes before taking your blood pressure. Go to the bathroom before the test. Relax for 5 minutes before taking the measurement. Sit with your back supported (don't sit on a couch or soft chair); keep your feet on the floor uncrossed. Place your arm on a solid flat surface (like a table) with the upper part of the arm at heartlevel. Place the middle of the cuff directly above the bend of the elbow. Check the monitor's instruction manual for an illustration. Take multiple readings. When you measure, take 2 to 3 readings one minute apart and record all of the results. Take your blood pressure at the same time every day, or as your healthcare provider recommends. Record the date, time, and blood pressure reading. Take the record with you to your next medical appointment. If your blood pressure monitor has a built-in memory, simply take the monitor with you to your next appointment. Call your provider if you have several high readings. Don't be frightened by a single high blood pressure reading, but if you get several high readings, check in with your healthcare provider. Note: When blood pressure reaches a systolic (top number) of 180 or higher OR diastolic (bottom number) of 110 or higher, seek emergency medical treatment. Follow-up care Keep all of your follow up appointments. If your blood pressure is more than 120 over 80 on 2 out of 3 days, you will need to follow up with your healthcare provider for more evaluation and treatment. Don t put this off! High blood pressure can be treated. High blood pressure that s not treated raises your risk for heart attack, heart failure, and stroke. When to seek medical advice Call your healthcare provider right away if any of these occur: Blood pressure reaches a systolic (top number) of 180 or higher, OR diastolic (bottom number) of 110 or higher Chest pain or shortness of breath Severe headache Throbbing or rushing sound in the ears Nosebleed Sudden severe pain in your belly (abdomen) Extreme drowsiness, confusion, or fainting Dizziness or dizziness with spinning sensation (vertigo) Weakness of an arm or leg or one side of the face You have problems speaking or seeing [id number] [employer]. [address] [place] [address]. All rights reserved. This information is not intended as a substitute for professional medical care. Always follow yourhealthcare professional's instructions. Follow Up Care 08/30/2023 11:05:37 With:JESSICA DURON DO Address: [address] [place] [phone] When:2-4 days [facility] 03-26-2024 Emergency department Discharge summary Discharge Instructions Thank you for allowing [facility] to assist you with your healthcare needs. The following is importantdischarge information regarding your hospital visit. Diagnosis from Today's Visit High blood pressure High blood pressure What to Do Next Instructions from Your Care Team No qualifying data available. Post Acute Orders No qualifying data available. You Need to Schedule the Following Appointments Follow Up with JESSICA DURON DO When Within 2-4 days Where: [address] [place] [phone] Allergies Darvon (Itching) Percocet 5/325 (Unknown) Sudafed (Unknown) clindamycin (Diarrhea) codeine (Unknown) oxyCODONE (Crawling) penicillin (Hives, Diarrhea) sulfa drugs (Unknown) Medications Please ask your primary doctor or pharmacist before taking any other medication not listed, including over the counter drugs, herbal medications, vitamins and or supplements as they may interact withyour home medications. What How Much When Why Instructions Last Dose Unchanged acetaminophen (Tylenol Extra Strength 500 mg oral tablet) by mouth Every 6 hours Unchanged albuterol (albuterol MDI (90 mcg/ inh) CFC free inhalation aerosol) 1 puff(s) by inhalation Every 4 hours as needed for as needed for wheezing Acute bronchitis Unchanged biotin (biotin 5000 mcg oral caps) Unchanged calcium carbonate (calcium carbonate 600 mg oral tablet, chewable) Chewed Once a day Unchanged cholecalciferol (Vitamin D3 1000 intl units oral capsule) 1 cap by mouth Once a day Unchanged cyanocobalamin (Vitamin B12) Unchanged famotidine (famotidine 20 mg oral tablet) by mouth Two (2) times a day Unchanged fexofenadine (Monica Allergy) by mouth Two (2) times a day Unchanged levothyroxine (levothyroxine 100 mcg (0.1 mg) oral tablet) 1 tab(s) by mouth Once a day Unchanged Misc Medication Unchanged omega-3 polyunsaturated fatty acids ([place]-3 1000 mg oral capsule) by mouth Two (2) times a day Unchanged omeprazole (omeprazole 20 mg oral delayed release capsule) 1 cap by mouth Unchanged triamcinolone topical (triamcinolone 0.1% topical cream) Please take this list to your next doctor s visit. Bring all medications you take, including over the counter medications, herbals and other supplements with you to your doctor s visit. Patients and families are reminded to discard old lists and to update any records with all medication providers or retail pharmacies. Education Materials High Blood Pressure, To Be Confirmed, No Treatment Your blood pressure today was higher than normal. Sometimes anxiety or pain can cause a temporary rise in blood pressure. It later returns to normal. Blood pressure that is high only one time doesn tmean that you have high blood pressure (hypertension). High blood pressure is a chronic illness. But you should have your blood pressure measured again within the next few days to find out if it s still high. Blood pressure measurements are given as 2 numbers. Systolic blood pressure is the upper number. This is the pressure when the heart contracts. Diastolic blood pressure is the lower number. This is the pressure when the heart relaxes between beats. You will see your blood pressure readings written together. For example, a person with a systolic pressure of 118 and a diastolic pressure of 78 will have 118/78 written in the medical record. Blood pressure is categorized as normal, elevated, or stage 1 or stage 2 high blood pressure: Normal blood pressure is systolic of less than 120 and diastolic of less than 80 (120/80) Elevated blood pressure is systolic of 120 to 129 and diastolic less than 80 Stage 1 high blood pressure is systolic is 130 to 139 or diastolic between 80 to 89 Stage 2 high blood pressure is when systolic is 140 or higher or the diastolic is 90 or higher Lifestyle changes such as weight loss, exercise, and quitting smoking, can help manage your blood pressure. Have your blood pressure checked regularly to be sure it is under control. Home care To track your blood pressure, your provider may ask you to come into the office at different times and on different days. If your healthcare provider asks you to check your readings at home, ask him or her what times of the day to test and for how many days. Before you leave the office, ask your provider to show you how to take your blood pressure and be sure to ask questions if you don't understand something. Consider buying an automatic blood pressure monitor. Ask your provider for a recommendation as wellas the proper size cuff to fit your arm. You can buy blood pressure monitors at most pharmacies. The [place] [employer] recommends the following guidelines for home blood pressure monitoring: Don't smoke or drink coffee or other caffeinated drinks for 30 minutes before taking your blood pressure. Go to the bathroom before the test. Relax for 5 minutes before taking the measurement. Sit with your back supported (don't sit on a couch or soft chair); keep your feet on the floor uncrossed. Place your arm on a solid flat surface (like a table) with the upper part of the arm at heartlevel. Place the middle of the cuff directly above the bend of the elbow. Check the monitor's instruction manual for an illustration. Take multiple readings. When you measure, take 2 to 3 readings one minute apart and record all of the results. Take your blood pressure at the same time every day, or as your healthcare provider recommends. Record the date, time, and blood pressure reading. Take the record with you to your next medical appointment. If your blood pressure monitor has a built-in memory, simply take the monitor with you to your next appointment. Call your provider if you have several high readings. Don't be frightened by a single high blood pressure reading, but if you get several high readings, check in with your healthcare provider. Note: When blood pressure reaches a systolic (top number) of 180 or higher OR diastolic (bottom number) of 110 or higher, seek emergency medical treatment. Follow-up care Keep all of your follow up appointments. If your blood pressure is more than 120 over 80 on 2 out of 3 days, you will need to follow up with your healthcare provider for more evaluation and treatment. Don t put this off! High blood pressure can be treated. High blood pressure that s not treated raises your risk for heart attack, heart failure, and stroke. When to seek medical advice Call your healthcare provider right away if any of these occur: Blood pressure reaches a systolic (top number) of 180 or higher, OR diastolic (bottom number) of 110 or higher Chest pain or shortness of breath Severe headache Throbbing or rushing sound in the ears Nosebleed Sudden severe pain in your belly (abdomen) Extreme drowsiness, confusion, or fainting Dizziness or dizziness with spinning sensation (vertigo) Weakness of an arm or leg or one side of the face You have problems speaking or seeing [id number] [employer] [place] [address], [place] [address]. All rights reserved. This information is not intended as a substitute for professional medical care. Always follow yourhealthcare professional's instructions. Additional Information VACCINATE! IT SAVES LIVES! Members of the community who have not yet received the COVID-19 vaccine and would like to receive it can visit one of [facility] vaccine clinics. There are many vaccine clinic locations within the [facility]. For locations and available times, please visit [email or web address].[email or web address]/. It is important to note that some COVID mobile vaccine clinics are held outdoors and may be canceled in rainy or stormy conditions. To learn more about pediatric vaccinations (ages 5-11), we invite you to visit the [facility] webpage. [email or web address].[email or web address].org/pages/8332-Gedtb-Hlsutjewpni-Iucctatzaf-Wddcy-Cww stions.htmlTo learn more about the COVID-19 vaccine, we invite you to visit the CDC website for a list of frequently asked questions. https://www.cdc.gov/coronavirus/2019-ncov/vaccines/faq.html [facility] [employer] Patient Portal Access Instructions: Stay connected with your healthcare team and access your personal medical information anytime with the [facility] Patient Portal. If you would like a full copy of your medical records please contact the [facility] Medical Records Department Tuesday through Tuesday between 8a.m. and 4:30p.m. Please follow the directions below to access the portal: 1.Access the email account you provided upon registration to the [facility].2.Look for an invitation email from [facility].3.Open the email and access the invitation link: Accept Invitation to [facility]4.Fill in the required ortiz to create your account. Sign into www.[employer] with your username and password that you created in the above steps to stay up to date. You can then view a summary of results, a summary of your visits, and the ability to download your summaries to your computer or send the information securely to a physician. Remember that your healthcare information is confidential, so carefully consider who you will allow to register on the [facility] Patient Portal for access to your information. You can also access the [facility] Patient Portal on the [employer] alaina. Simply click on Health Records under [employer] and then click on the [facility] logo. HOW TO SAFELY DISPOSE OF PRESCRIPTION MEDICATIONS Please use one of the following methods to safely dispose of your unused medications. 1.Use a drug disposal kit: the drug disposal pouch allows you to safely discard your old and unuseddrugs. Ask your nurse to give you one when you are discharged.2.Visit a local take-back location: Many local pharmacies and police departments have programs that collect old and unwanted prescriptiondrugs. Call your local pharmacy or go to http://bit.ScalingData/1F3Ye0r to find one close to you.3.Make use of household items: Use cat litter or old coffee grounds to dispose medications if other options arenot available. Mix your drugs with these household products, seal them in an airtight container andthrow it into the garbage. Call [facility]: [phone] to be sure your drugs can be disposed of in this way. Some medicines may require a different approach.4.Never flush your medications down the toilet. IF YOU HAVE BEEN PRESCRIBED AN OPIOIDS FOR PAIN If you have been prescribed an opioid (such as hydrocodone, oxycodone or morphine), it is critical to understand the possible side effects and risks of opioid pain medications. Even when taken as directed, opioids can have several side effects including: Tolerance, meaning you might need to take more of a medication for the same pain relief. Nausea, vomiting and/or constipation. Sleepiness, dizziness, dry mouth, confusion, depression or itching. Physical dependence, meaning you have withdrawal symptoms when a medication is stopped ? this can develop within a few days. KNOW YOUR RESPONSIBILITIES It is important to know exactly how much and how often to take the opioid pain medications you are prescribed. Never take opioids in higher amounts or more often than prescribed. Do not combine opioids with alcohol or other drugs that cause drowsiness, such as benzodiazepines, also known as benzos,including diazepam and alprazolam, muscle relaxants or sleep aids. Never sell or share prescriptionopioids. This is illegal. Store opioids in a secure place and out of reach of others (including children, family, friends and visitors). The last page(s) of this document has been signed and retained as a CHART COPY Signatures Patient Education Materials Hypertension, To Be Confirmed Medication Leaflets My discharge plan and instructions have been reviewed and explained to me and IKATHY ANGELICAR understand my current condition and have read and understand these discharge instructions. I havereceived a written copy of the plan/instructions. If I have questions, I am aware that I should contact my doctor. 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 Lungs: The lungs are mildly hyperinflated. No consolidation, pulmonary edema or a pleural effusion is seen. Pneumothorax: None. Osseous: No acute osseous pathology. Widespread thoracic spondylotic changes. IMPRESSION: No acute pulmonary disease. Interpreted by: Vito Hyatt MD Preliminary Report By: Vito Hyatt MD Electronically signed By Vito Hyatt MD Dictated Date: 08/30/2023 12:03:29 PM Prelim Date: 08/30/2023 12:04:15 PM Sign Date: 08/30/2023 12:04:15 PM [facility]ing [facility] NoteSinus rhythm Electronic Signature: TYRELL YOUNG MD 08/30/2023 11:33:49[facility] 02-23-2023 Miscellaneous Notes* Telephone Encounter - Nazanin Anand MA - 07/29/2022 4:09 PM EST Patient called in concerned that her CEA level went from a 1.7 to a 2.4. She would like to know what can cause this to rise and if there is anything that she can do to lower this. Please advise when you review 07/22/22 labs. Thank you [facility] Miscellaneous Notes* Telephone Encounter - Nazanin Anand MA - 07/06/2022 2:10 PM EST Patient called in and just wanted to let you know that she stopped taking the Cholestyramine powderdue to it not being effective. She started back on the Miralax and is doing fine with that. [facility] History of Present illness Narrative* Milly Mead MD - 06/14/2022 3:43 PM EST CHIEF COMPLAINT: Patient presents with: Recheck: Yearly no concerns. Colon 10/26/21 HPI Fredi Kapoor is a 72 year old female here today for Recheck (Yearly no concerns. Colon 10/26/21) Colonoscopy 10/26/2021 - Stenosed but manually dilated post-surgical anastomosis found on digital exam. - The entire examined colon is normal. - The examined portion of the ileum was normal. - No specimens collected Interval history: Pt with issues since she had cholecystectomy Loose stool after eating greasy food Pt need a repeat colonoscopy in 2024 Endorsed some stomach issues and has been on Pepcid Current Outpatient Medications Medication Sig acetaminophen (TYLENOL) 500 mg tablet Take by mouth. famotidine (PEPCID) 20 mg tablet Take by mouth. Kuwgf-2-CVG-EPA-Fish Oil 1,000 mg (120 mg-180 mg) cap Take 1,000 mg by mouth once daily. levothyroxine (SYNTHROID) 100 mcg tablet Take 100 mcg by mouth once daily. Biotin-Silicon Wkcm-G-Roxoaaof 5,000 mcg-100 mg- 50 mg tab Take by mouth once daily. biotin 5000 mcg daily CYANOCOBALAMIN, VITAMIN B-12, (VITAMIN B-12 ORAL) Take 2,500 mcg by mouth once daily. cholecalciferol (VITAMIN D3) 1,000 unit tab tablet Take 1,000 Units by mouth once daily. FLAXSEED OIL (OMEGA 3 ORAL) Take 1,000 mg by mouth once daily. cholestyramine low-calorie (CHOLESTYRAMINE LIGHT) 4 gram packet Take 1 Packet by mouth twice daily. No current facility-administered medications for this visit. ALLERGIES Allergen Reactions Codeine Other: See Comments feels like bugs crawling all over me Darvon [Propoxyphen* Penicillins Percocet [Oxycodone* Vomiting Pseudoephedrine Unknown gets really cold Sulfa (Sulfonamide * Social History Tobacco Use Smoking status: Never Smokeless tobacco: Never Substance Use Topics Alcohol use: No Drug use: No PAST MEDICAL HISTORY Diagnosis Date Abnormal mammogram, unspecified Gallstones Hypertension Rectal cancer (HCC) Varicose veins PAST SURGICAL HISTORY Procedure Laterality Date COLONOSCOPY 10/26/2021 COLONOSCOPY FLX DX W/COLLJ SPEC WHEN PFRMD 2007, 09/09/2014 Colonoscopy COLONOSCOPY FLX DX W/COLLJ SPEC WHEN PFRMD 11/10/2015 Colonoscopy COLONOSCOPY FLX DX W/COLLJ SPEC WHEN PFRMD 11/06/2018 Colonoscopy PAST SURGICAL HISTORY OF 1977 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 Gastrointestinal: Positive for anal bleeding. Heartburn All other systems reviewed and are negative. PHYSICAL EXAM BP 148/88 Pulse 88 Ht 5' 2 (1.58m) Wt 166 lb (75.3kg) BMI 30.35 kg/(m^2). Physical Exam General: Alert, oriented, No acute distress. Skin: No rash; warm. Head: Normocephalic, atraumatic. Eyes: EOMI, PERRLA. Lymph: No cervical lymphadenopathy. Thyroid: Neck supple. No thyromegaly. Heart: S1, S2. No murmurs, gallops or rubs. Lungs: Clear to auscultation bilaterally. No wheezes or crackles. Abdomen: Soft, nontender, nondistended. Bowel sounds are normal. No organomegaly. Musculoskeletal: No joint swelling or effusion. Extremities: No cyanosis, clubbing or edema. Mental: Mood appropriate. Not depressed. Neuro: Cranial nerves II through XII intact. ASSESSMENT: Personal history of rectal cancer (primary encounter diagnosis) History of cholecystectomy Dyspepsia Borderline high cholesterol PLAN: Start Questran advised to space out from other medicines by 4 hours Repeat colonoscopy 2024 CEA, CBC, BMP, and hepatic function panel Order lipid profile This office note has been created using [employer], a speech recognition software program, and may contain errors including punctuation, grammar, spelling, gender, and inappropriate words or phrases that pertain to the sytem. Milly Mead MD Office Visit on 06/14/22 CEA BLD CBC + DIFF BASIC METABOLIC PNL PROTHROMBIN TIME/PT *Canceled* HEPATIC FUNCTION PNL LIPID PANEL BASIC No follow-ups on file. Milly Mead MD DATE: 06/14/22 TIME: 3:43 PM [facility] Miscellaneous Notes* Telephone Encounter - Nazanin Anand MA - 05/05/2022 12:48 PM EST Milly Mead MD You No thanks Patient advised * Telephone Encounter - Nazanin Anand MA - 05/05/2022 8:03 AM EST Is there any labs or testing that you would like for this patient to have prior to her 06/14/22 appointment? [facility] Note ORIGINAL EXAMINATION: BONE DENSITOMETRY12/11/2021 9:11 am TECHNIQUE: Dual energy bone densitometry lumbar spine and left hip. COMPARISON: 11/23/2019 HISTORY: Reason for Exam: screening Osteoporosis screening. FINDINGS: Total bone mineral density of the L1-L4 is 1.049 grams per square centimeters, and T-score being 0.0, indicating that this patient has normal bone mineral density. This represents 2.6% increase in mineralization of the lumbar spine since the last study. Bone mineral density of the left femoral neck is 0.615 grams per square centimeters, and T-score being -2.1, indicating that this patient has osteopenia. Total bone mineral density of the left hip is 0.737 grams per square centimeters, and T-score being -1.7, indicating that this patient has osteopenia. This represents 3.5% decrease in mineralization since the last study. IMPRESSION: Osteopenia. I have personally reviewed the images of this examination and agree with the resident's findings and interpretation. Interpreted by: Michael Villegas MD Preliminary Report By: Homer Chacko Electronically signed By Michael Villegas MD Dictated Date: 12/11/2021 9:18:51 AM Prelim Date: 12/11/2021 1:49:58 PM Sign Date: 12/11/2021 1:49:58 PM Ordering Provider: JESSICA DURON [facility]07-08-2022 Note ORIGINAL EXAMINATION: BONE DENSITOMETRY12/11/2021 9:11 am TECHNIQUE: Dual energy bone densitometry lumbar spine and left hip. COMPARISON: 11/23/2019 HISTORY: Reason for Exam: screening Osteoporosis screening. FINDINGS: Total bone mineral density of the L1-L4 is 1.049 grams per square centimeters, and T-score being 0.0, indicating that this patient has normal bone mineral density. This represents 2.6% increase in mineralization of the lumbar spine since the last study. Bone mineral density of the left femoral neck is 0.615 grams per square centimeters, and T-score being -2.1, indicating that this patient has osteopenia. Total bone mineral density of the left hip is 0.737 grams per square centimeters, and T-score being -1.7, indicating that this patient has osteopenia. This represents 3.5% decrease in mineralization since the last study. IMPRESSION: Osteopenia. I have personally reviewed the images of this examination and agree with the resident's findings and interpretation. Interpreted by: Michael Villegas MD Preliminary Report By: Homer Chacko Electronically signed By Michael Villegas MD Dictated Date: 12/11/2021 9:18:51 AM Prelim Date: 12/11/2021 1:49:58 PM Sign Date: 12/11/2021 1:49:58 PM Ordering Provider: JESSICA [facility]05-23-2022 Nurse Note* Jessica Ann RN - 10/26/2021 12:[address] Mead at bedside. Pt ready for discharge. documented in [facility]Green [facility]22 History and physical note * Milly Mead MD - 10/26/2021 10:30 AM EDT HISTORY AND PHYSICAL Fredi Kapoor, 71 year old female Current history and physical on file: No Is a new History and Physical required for today's visit? Yes Indication for procedure:history of rectal cancer PROCEDURE(S) SCHEDULED FOR: Colonoscopy with or without biopsies and with or without removal of polyps or lesions, dilation (any means), treatment of bleeding (any means), based on clinical findings. BASELINE BEHAVIOR: Calm BASELINE ORIENTATION: A & O x3 All medications and allergies reviewed: Yes Skin Assessment: Warm dry mucus membranes pink Airway/Respiratory Assessment: Airway: visualization of the uvula- Yes Mouth: opening greater than 2 fingerbreadths- Yes Neck: full range of motion- Yes Breath sounds clear/equal- Yes Cardiac Assessment: Regular rate and rhythm without murmur Abdominal Assessment: Abdomen soft, non-tender, no masses or organomegaly. Sedation Plan: MAC Additional Comments: None Milly Mead MD documented in this encounterGreen Cross HospitalEvaluation + Plan note Future Appointments Appointment Date:09/17/2021 08:00:00 AM Scheduled Provider:JESSICA DURON DO Location[place] [place] Appointment Type:PC OV Follow Up [facility] Evaluation + Plan note Future Appointments Appointment Date:10/01/2021 08:15:00 AM Scheduled Provider: Location:[place] Appointment Type:COVID AMB VACCINE Appointment Date:12/11/2021 09:30:00 AM Scheduled Provider: Location:[facility] Appointment Type:MA Mammogram Screening Bilateral w/ [place] Appointment Date:12/11/2021 10:00:00 AM Scheduled Provider: Location:[facility] Appointment Type:BD Bone Density DEXA Axial Skeleton Appointment Date:03/26/2022 08:00:00 AM Scheduled Provider:JESSICA DURON DO Location:[place] Appointment Type:PC OV Future Scheduled Tests Radiology* MA Mammo Screening Bilateral w/ [place] 12/11/21 * BD Bone Density DEXA Axial Skeleton 12/11/21 [facility] Evaluation + Plan note Future Appointments Appointment Date:12/18/2021 08:15:00 AM Scheduled Provider: Location:[place] Appointment Type:PC Nurse BP Check Appointment Date:03/26/2022 08:00:00 AM Scheduled Provider:JESSICA DURON DO Location:[facility] Appointment Type:PC OV [facility] + Plan note Future Appointments Appointment Date:09/24/2022 08:00:00 AM Scheduled Provider:JESSICA DURON DO Location:[facility] Appointment Type:PC OV [facility] Evaluation + Plan note Future Appointments Appointment Date:03/25/2023 08:30:00 AM Scheduled Provider:JESSICA DURON DO Location:[facility] Appointment Type:PC OV Future Scheduled Tests Radiology* MA Mammo Screening Bilateral w/ [place] 09/24/22 [facility] + Plan note Future Appointments Appointment Date:03/25/2023 08:30:00 AM Scheduled Provider:JESSICA DURON DO Location:[facility] Appointment Type:PC OV [facility] [place] + Plan note Future Appointments Appointment Date:09/01/2023 07:30:00 AM Scheduled Provider:JESSICA DURON DO Location:[facility] Appointment Type:PC OV Future Scheduled Tests Laboratory* Thyroid Stimulating Hormone 09/24/23 * Complete Blood Count 09/24/23 * Lipid Profile 09/24/23 * Vitamin D Level 09/24/23 * Complete Metabolic Panel 09/24/23 [facility] + Plan note Future Appointments Appointment Date:03/01/2024 08:00:00 AM Scheduled Provider:JESSICA DURON DO Location:[facility] Appointment Type:PC OV Future Scheduled Tests Laboratory* Thyroid Stimulating Hormone 09/24/23 * Complete Blood Count 09/24/23 * Lipid Profile 09/24/23 * Vitamin D Level 09/24/23 * Complete Metabolic Panel 09/24/23 Radiology* NM Myocardial Spect Rest/Stress 09/01/23 [facility] evaluation + Plan note Future Appointments Appointment Date:03/01/2024 08:00:00 AM Scheduled Provider:JESSICA DURON DO Location[facility] Appointment Type:PC OV [facility] Evaluation + Plan note Future Appointments Appointment Date:12/19/2023 09:00:00 AM Scheduled Provider: Location:[facility] Appointment Type:US Renal Appointment Date:03/01/2024 08:00:00 AM Scheduled Provider:JESSICA DURON DO Location:[facility] [place] Appointment Type:PC OV Future Scheduled Tests Radiology* US Renal 12/19/23 [facility] Evaluation + Plan note Future Appointments Appointment Date:03/01/2024 08:00:00 AM Scheduled Provider:JESSICA DURON DO Location:[facility] [place] Appointment Type:PC OV Diagnostic Tests Pending * Protein Electrophoresis Urine 12/19/23 [facility] Evaluation + Plan note Future Appointments Appointment Date:02/29/2024 02:40:00 PM Scheduled Provider:HORACIO GOMEZ MD Location:UROLOGY Appointment Type:URO OV Appointment Date:03/01/2024 08:00:00 AM Scheduled Provider:JESSICA DURON DO Location:[facility] Appointment Type:PC OV [facility] Evaluation + Plan note Future Appointments Appointment Date:08/28/2024 07:00:00 AM Scheduled Provider:JESSICA DURON DO Location:[facility] Appointment Type:PC Wellness Medicare [facility] Evaluation + Plan note Future Appointments Appointment Date:02/29/2024 02:40:00 PM Scheduled Provider:HORACIO GOMEZ MD Location:UROLOGY Appointment Type:URO OV Appointment Date:03/01/2024 08:00:00 AM Scheduled Provider:JESSICA DURON DO Location:[facility] Appointment Type:PC OV Future Scheduled Tests Radiology* CT Urogram 02/15/24 [facility] evaluation + Plan note Future Appointments Appointment Date:09/07/2024 08:30:00 AM Scheduled Provider:JESSICA DURON DO Location:[facility] Appointment Type: Wellness Medicare [facility] evaluation + Plan note Future Appointments Appointment Date:12/17/2024 09:00:00 AM Scheduled Provider: Location:[facility] Appointment Type:MA Mammogram Screening Bilateral w/ [place] Appointment Date:03/21/2025 08:00:00 AM Scheduled Provider:JESSICA DURON DO Location:[facility] Appointment Type:PC OV Future Scheduled Tests Radiology* MA Mammo Screening Bilateral w/ [place] 12/17/24 [facility] + Plan note Future Appointments Appointment Date:03/21/2025 08:00:00 AM Scheduled Provider:JESSICA DURON DO Location:[facility] Appointment Type: OV [facility] [place] + Plan note Future Appointments Appointment Date:09/24/2025 08:30:00 AM Scheduled Provider:JESSICA DURON DO Location:[facility] Appointment Type:PC Wellness Medicare [facility] evaluation note* Diagnosis History of rectal cancer Personal history of malignant neoplasm of rectum, rectosigmoid junction, and anus documented in this encounter [facility] note* Diagnosis Personal history of rectal cancer- Primary Personal history of malignant neoplasm of rectum, rectosigmoid junction, and anus History of cholecystectomy Other acquired absence of organ Dyspepsia Dyspepsia and other specified disorders of function of stomach Borderline high cholesterol Unspecified disorder of lipoid metabolism documented in this encounter [facility] note* Diagnosis Benign neoplasm of colon, unspecified part of colon- Primary documented in this encounter [facility] note* Diagnosis Benign neoplasm of colon, unspecified part of colon documented in this encounter [facility] note* Diagnosis Rectal bleeding- Primary Hemorrhage of rectum and anus Wasp sting, accidental or unintentional, initial encounter documented in this encounter [facility] note* Diagnosis Onset Date Resolution Status Admit Date Cataracts, bilateral acute Octo 2024 10:07am Heart valve problem acute Octob 2024 10:07am Thyroid disease acute March 082024 10:07am Vascular disease acute March 08, 2025 10:07am Hypertension chronic March 08, 2025 10:07am [facility] Work Phone: Hospital course Narrative No data available for this section [facility] Hospital Discharge instructions No data available for this section [facility] Progress note No data available for this section [facility] Reason for referral (narrative)* Outpatient Procedure (Routine) - Closed Specialty Diagnoses / Procedures Referred By Pam frey Referred To Contact [facility] Diagnoses History of rectal cancer Procedures COLONOSCOPY SCREENING COLONOSCOP W/ OR W/O [facility] SPEC Cheng Lynn MD [address] [facility] [address] [place] [address] [facility] [place] [employer] [place] [address] Referral ID Status Reason Start Date Expiration Date V isits Requested Visits Authorized [id number] Closed Auto-Generate d Referral 06/19/2021 06/19/2022 1 1 [facility] for referral (narrative)No reason for referral [facility] Work Phone: Reason for visit Narrative* Outpatient Procedure (Routine) - Closed Specialty Diagnoses / Procedures Referred By Pam frey Referred To Contact [facility] Diagnoses History of rectal cancer Procedures COLONOSCOPY SCREENING COLONOSCOP W/ OR W/O [facility] Cheng Pang MD [address] [place] [address] [facility] [place] [employer] [place] [address] Referral ID Status Reason Start Date Expiration Date V isits Requested Visits Authorized [id number] Closed Auto-Generate d Referral 06/19/2021 06/19/2022 1 1 [facility] for visit Narrative* Outpatient Procedure (Routine) - Closed Specialty Diagnoses / Procedures Referred By Contviola t Referred To Contact [facility] Diagnoses Benign neoplasm of colon, unspecified part of colon Procedures COLONOSCOPY SCREENING COLONOSCOPY FLX DX W/[place] 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 Advance Directive(s) 10/26/2021 9:51 AM Advance Directive(s) 11/06/2018 11:25 AM Advance Directive(s) 11/10/2015 10:13 AM Advance Directive(s) 01/06/2015 11:53 AM Documents on File Type Date Recorded 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 Advance Directive(s) 01/06/2015 11:53 AM Documents on File Type Date Recorded 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 Advance Directive(s) 01/06/2015 11:53 AM Advance Directive Response Recorded Date/ Time Advance Directives Yes September 09 8:18am Summary Purpose Family History No Family History Records Found Chief Complaint and Reason for Visit Chief Complaint Admit Date UPPER BLEPH March 08, 2025 10 :07am Reason for Visit Admit Date Cataracts, bilateral March 08, 2025 1 0:07am Heart valve problem March 08, 2025 10 :07am Thyroid disease March 08, 2025 10 :07am Vascular disease March 08, 2025 10 :07am Hypertension March 08, 2025 10 :07am Additional Source Comments Care Team (unrecognized sect ion and content) Metal Can Inspector Relationship Specialty Start Date End Date Jessica Duron, DO [address] [place] [address] PCP - General Family Practice 03/31/18 Metal Can Inspector Relationship Specialty Start Date End Date Jessica Duron, [place] [address] PCP - General Family Practice 03/31/18 Metal Can Inspector Relationship Specialty Start Date End Date Jessica Duron, [place] [address] PCP - General Family Medicine 03/31/18 Metal Can Inspector Relationship Specialty Start Date End Date Jessica Duron, [place] [address] PCP - General Family Medicine 03/31/18 Metal Can Inspector Relationship Specialty Start Date End Date Jessica Duron, [place] [address] PCP - General Family Medicine 03/31/18 Metal Can Inspector Relationship Specialty Start Date End Date Jessica Duron DO [address] [place] [address] PCP - General Family Medicine 03/31/18 Metal Can Inspector Relationship Specialty Start Date End Date Jessica Duron DO [address] [place] [address] PCP - General Family Medicine 03/31/18 Metal Can Inspector Relationship Specialty Start Date End Date Jessica Duron DO [address] [place] [address] PCP - General Family Medicine 03/31/18 Team Status: Active Member Role/Relationship Status Dates Dr. Juan Pablo Jane , DO Primary care physician Active Team Status: Inactive Member Role/Relationship Status Dates Dr. Juan Pablo Jane DO Primary care physician Active Start: March 08, 2025 End: March 08, 2025 Dr. Juan Pablo Jane DO Referring Provider Active Start: March 08, 2025 End: March 08, 2025 Dr. Vito Montano MD Attending physician Active Start: March 08, 2025 End: March 08, 2025 Source Comments (unrecognize d section and content) In the event this informatio n is protected by the Federal Confidentiality of Alcohol and Drug Abuse Patient Records regulations: The Federal rules restrict any use of the information to criminally investigate or prosecute any alcohol or drug abuse patient.[facility] HospitalIn the event this information is protected by the Federal Confidentiality of Alcohol and Drug Abuse Patient Records regulations: The Federal rules restrict any use of the information to criminally investigate or prosecute any alcohol or drug abuse patient.[facility] HospitalIn the event this information is protected by the Federal Confidentiality of Alcohol and Drug Abuse Patient Records regulations: The Federal rules restrict any use of the information to criminally investigate or prosecute any alcohol or drug abuse patient.[facility] HospitalIn the event this information is protected by the Federal Confidentiality of Alcohol and Drug Abuse Patient Records regulations: The Federal rules restrict any use of the information to criminally investigate or prosecute any alcohol or drug abuse patient.[facility] HospitalIn the event this information is protected by the Federal Confidentiality of Alcohol and Drug Abuse Patient Records regulations: The Federal rules restrict any use of the information to criminally investigate or prosecute any alcohol or drug abuse patient.[facility] HospitalIn the event this information is protected by the Federal Confidentiality of Alcohol and Drug Abuse Patient Records regulations: The Federal rules restrict any use of the information to criminally investigate or prosecute any alcohol or drug abuse patient.[facility] HospitalIn the event this information is protected by the Federal Confidentiality of Alcohol and Drug Abuse Patient Records regulations: The Federal rules restrict any use of the information to criminally investigate or prosecute any alcohol or drug abuse patient.[facility] HospitalIn the event this information is protected by the Federal Confidentiality of Alcohol and Drug Abuse Patient Records regulations: The Federal rules restrict any use of the information to criminally investigate or prosecute any alcohol or drug abuse patient.[facility] HospitalIn the event this information is protected by the Federal Confidentiality of Alcohol and Drug Abuse Patient Records regulations: The Federal rules restrict any use of the information to criminally investigate or prosecute any alcohol or drug abuse patient.[facility] HospitalIn the event this information is protected by the Federal Confidentiality of Alcohol and Drug Abuse Patient Records regulations: The Federal rules restrict any use of the information to criminally investigate or prosecute any alcohol or drug abuse patient.[facility] Care Team (unrecognized sect ion and content) Care Team Personnel Name: JESSICA DURON DO Position: P4 Physician - Primary Care Med Service: Active Provider Member Role: Primary Care Physician Address: Address: [facility] [place], [place] [address] Care Team Related Persons Name: DOUG BRENNAN Care Team Personnel Name: JESSICA DURON DO Position: P4 Physician - Primary Care Med Service: Active Provider Member Role: Primary Care Physician Address: Address: [address] [place] [address]- Care Team Related Persons Name: DOUG BRENNAN Reason for Visit (unrecogniz ed section and content) Reason Comments Orders Reason Comments Recheck Yearly no concerns. Colon 10/26/21 Reason Comments Patient Update Reason Comments Patient Question Reason Comments Screeningcolonoscopychecklist Reason Comments Allergic Reaction Abdominal Pain Black or Bloody Stool INFORMATION SOURCE (unrecogn ized section and content) DATE CREATED AUTHOR 01/15/2024 [facility] ([place]) DATE CREATED AUTHOR AUTHOR'S ORGANIZ ATION 03/18/2024 [facility] DATE CREATED AUTHOR AUTHOR'S ORGANIZ ATION 10/18/2024 [facility] DATE CREATED AUTHOR AUTHOR'S ORGANIZ ATION 03/23/2025 [facility] DATE CREATED AUTHOR AUTHOR'S ORGANIZ ATION 04/18/2025 [facility] PRN Active and Recently Administ ered Medications (unrecognized section and content) Medication Order 01/25/2025 01/26/2025 01/27/2025 iopamidol (Isovue-370) 76 % injection 75 mL (COMPLETED) 75 mL, IntraVENous, IMG once PRN, contrast, Starting on 01/27/25 at 1554, For 1 dose 1554 (Given - Provid er: Steffi Reed, RT (R)(CT) - Comment: dia scanned/injected) Goals (unrecognized section and content) Goals may be documented in a n alternate section FOR RECORDS PERTAINING TO PATIENTS WHO ARE OR HAVE BEEN ENROLLED IN A CHEMICAL DEPENDENCY/SUBSTANCEABUSE PROGRAM, SOME INFORMATION MAY BE OMITTED. This clinical summary was aggregated from multiple sources. Caution should be exercised in using it in the provision of clinical care. This summary normalizes information from multiple sources, and as a consequence, information in this document may materially change the coding, format and clinical context of patient data. In addition, data may be omitted in some cases. CLINICAL DECISIONS SHOULD BE BASED ON THE PRIMARY CLINICAL RECORDS. [employer] provides no warranty or guarantee of the accuracy or completeness of information in this document.
[2025-04-24] MEDS: Lidocaine 1% /Epi 1:100 (20ml) 20 ML Vial (12:15)
[2025-04-24] MEDS: Erythromycin Base 1 OPTH.TUBE 1 APPLIC OPHTHALMIC (12:29)
[2025-04-24] MEDS: dexMEDEtomidine 200 MCG/2 ML ML 20 MCG IV (12:33)
--- NOTE | 2025-04-24 12:58 | OP.PCM_ITS ---
Operative Report (Standard) Operative Information Date of Procedure: 04/24/25 Pre-Operative Diagnosis: Upper eyelid dermatochalasis Post-Operative Diagnosis: Same Surgery/Procedure Performed: Upper eyelid blepharoplasty (skin only) head sugar reprocess operator: Yes Station Repairer: Nadine Sloan Tasks completed by ict sales assistant: Retracting Type of Anesthesia: Local MAC (2 cc of 1% lidocaine with 1:200,000 epinephrine ) RN Documented Start/Stop Times: Operation Date: 04/24/25 12:30 Case Time Into Pre-Op 04/24/25 10:43 Anesthesia Start 04/24/25 11:48 Into Room 04/24/25 11:48 Out of Pre-Op 04/24/25 11:48 Procedure Start 04/24/25 12:15 Procedure End 04/24/25 12:47 Anesthesia End 04/24/25 12:54 Out of Room 04/24/25 12:54 Procedure Start Time: 12:15 Procedure Stop Time: 12:47 Select all DRAINS/GRAFTS/IMPLANTS that apply: None Estimated Blood Loss: minimal Specimen collected: No Description of surgery: Indications: Maria A Kapoor is a delightful 75YO FM with past medical history of upper eyelid excess skin which is interfering with vision. Presents today for bilateral upper eyelid blepharoplasty. I talked them about the risks, benefits, and alternatives to the procedure and they elected to proceed with surgery. Procedure details: Patient was correctly identified in preoperative holding and marked. They were taken back to the operating room where was administered sedation and prepped and draped in sterile fashion with ophthalmic Betadine solution. A timeout was performed. Appropriate upper lid blepharoplasty skin markings were then confirmed with care taken to have 10 mm between the lid crease incision and the eyelid margin centrally, with care taken not to extend medially past the puncta. The incisions did not extend lateral to the orbital rim, and they were >1 cm from the brow superiorly. The myers were tested with skin pinch test and it looked like there was the safe/appropriate amount of skin being excised. The skin was injected with 1 cc each of 1% lidocaine with 1-200,000 epinephrine. It was given time to take effect. A 15 blade scalpel was used to excise the excess upper eyelid skin within the markings, leaving behind all of the orbicularis muscle. Hemostasis was obtained with Bovie electrocautery. Incisions were closed with a running subcuticular 6-0 Prolene suture. The tails were taped with Steri-Strips. The same procedure was preformed on both upper eyelids. The pateint tolerated the procedure well. The patient was awakened and taken to the PACU in stable condition. Surgical Findings: No lagophthalmos Complications Complications: No
--- NOTE | 2025-04-24 12:58 | PCM.POST.ANE ---
Anesthesia: Postop Eval I Current Vital Signs Temperature: 97.5 F Pulse Rate: 62 Blood Pressure: 113/56 Respiratory Rate: 16 Pulse Ox: 96 Oxygen Delivery Method: Room Air Assessment Airway patent: Yes Spontaneous unlabored respirations: Yes Mental status: Awake and Calm nausea: No Vomiting: No Anesthesia Complication: No Fluid Hydration Crystalloid volume administer (ml): 200 Total IV fluid infused: 200 Progress Note Anesthesia document: Postop Eval 1 completed: Yes
--- NOTE | 2025-04-24 16:39 | POSTOPAN2_ITS ---
Anesthesia Postop Eval I Sum Postop Eval Completion status Anesthesia document: Postop Eval 1 completed: Yes Anesthesia Postop Eval I Summary Anesthesia Postop Eval I Summary: Anesthesia Postop Eval I: Assessment Summary Airway patent Yes 04/24/25 12:59 [email or web address] Spontaneous unlabored Yes 04/24/25 12:59 [email or web address] respirations Mental status Awake,Calm 04/24/25 12:59 [email or web address] nausea No 04/24/25 12:59 [email or web address] Vomiting No 04/24/25 12:59 [email or web address] Anesthesia Postop Eval I: Fluid Summary Crystalloid volume administer 200 04/24/25 12:59 [email or web address] (ml) Colloids volume administered ( ml) Blood Product volume administered (ml) Total IV fluid infused 200 04/24/25 12:59 [email or web address] Anesthesia Postop Eval I: Summary Notes Anesthesia Complication No 04/24/25 12:59 [email or web address] Anesthesia Complication Comment: Post-operative progress note Anesthesia: Postop Eval II Evaluation Mental status: Awake and Calm Pain Level: 1 nausea: No Vomiting: No
--- NOTE | 2025-04-24 16:39 | PCM.POSTANE2 ---
Anesthesia Postop Eval I Sum Postop Eval Completion status Anesthesia document: Postop Eval 1 completed: Yes Anesthesia Postop Eval I Summary Anesthesia Postop Eval I Summary: Anesthesia Postop Eval I: Assessment Summary Airway patent Yes 04/24/25 12:59 [email or web address] Spontaneous unlabored Yes 04/24/25 12:59 [email or web address] respirations Mental status Awake,Calm 04/24/25 12:59 [email or web address] nausea No 04/24/25 12:59 [email or web address] Vomiting No 04/24/25 12:59 [email or web address] Anesthesia Postop Eval I: Fluid Summary Crystalloid volume administer 200 04/24/25 12:59 [email or web address] (ml) Colloids volume administered ( ml) Blood Product volume administered (ml) Total IV fluid infused 200 04/24/25 12:59 [email or web address] Anesthesia Postop Eval I: Summary Notes Anesthesia Complication No 04/24/25 12:59 [email or web address] Anesthesia Complication Comment: Post-operative progress note Anesthesia: Postop Eval II Evaluation Mental status: Awake and Calm Pain Level: 1 nausea: No Vomiting: No
== END 2025-04-24 14:41 | disposition home or self-care (01) ==
LOC: SDC 10:33 → AC 10:38
PROVIDERS: Referring Provider Surgery Plastic and Reconstructive Surgery; Visit Provider Surgery Plastic and Reconstructive Surgery
PROC: (CPT 15823; principal; 2025-04-24 12:20)
DX: H02.831 Dermatochalasis of right upper eyelid (principal); H02.834 Dermatochalasis of left upper eyelid; H02.403 Unspecified ptosis of bilateral eyelids; I10 Essential (primary) hypertension; E03.9 Hypothyroidism, unspecified; Z79.890 Hormone replacement therapy; Z79.899 Other long term (current) drug therapy
CPT/HCPCS: 15823; J2405